=== PATIENT | female | born 1950 | race Caucasian/White ===

== ENCOUNTER 2019-02-26 20:09 | Emergency (ER) | payer OTHER ==
--- OUTSIDE RECORDS SUMMARY | 2019-02-26 20:12 | XMS REPORT ---
:1950 Author Organization eClinicalWorks Care Team Providers Name Role Phone Burrows, Na Provider Role Unavailable Allergies No Known Allergies Problems Problem Type Condition Code Onset Dates Condition Status Problem Degeneration of lumbar or M51.37 Active lumbosacral intervertebral disc Problem Cervicalgia M54.2 Active Problem Neuropathic pain M79.2 Active Problem Allergic rhinitis J30.9 Active Problem Familial hyperlipidemia, high LDL E78.4 Active Problem Dizziness R42 Active Problem Mild memory disturbance R41.3 Active Problem Other chronic pain G89.29 Active Problem Hyperlipidemia E78.5 Active Problem DJD (degenerative joint disease) M19.90 Active Problem Headache R51 Active Problem Benign essential HTN I10 Active Problem GERD (gastroesophageal reflux K21.9 Active disease) Problem Osteoarthritis of multiple joints, M15.9 Active unspecified osteoarthritis type Problem Lumbago with sciatica, unspecified M54.40 Active side Problem Varicose veins of both legs with I83.893 Active edema Problem Varicose veins of both lower I83.93 Active extremities Problem Lipoma D17.9 Active Problem Narcolepsy G47.419 Active Problem Other cervical disc degeneration, M50.30 Active unspecified cervical region Problem Varicose veins I86.8 Active Problem Ventral hernia K43.9 Active Problem Diverticulosis of colon K57.30 Active Medications No Known Medications Results No Known Results Summary Purpose eClinicalWorks Submission
--- OUTSIDE RECORDS SUMMARY | 2019-02-26 20:12 | XMS REPORT ---
:1950 Author Organization eClinicalWorks Care Team Providers Name Role Phone Burrows, Na Provider Role Unavailable Allergies, Adverse Reactions, Alerts Substance Reaction Event Type PCN Info Not Available Drug Allergy Zocor Info Not Available Drug Allergy Ibuprofen Info Not Available Drug Allergy Inder Aspirin Info Not Available Drug Allergy Problems Problem Type Condition Code Onset Dates Condition Status Assessment Other chronic pain G89.29 Active Assessment Skin tags, anus or rectum K64.4 Active Assessment Mild memory disturbance R41.3 Active Assessment Varicose veins of both lower I83.93 Active extremities Assessment Lumbago with sciatica, unspecified M54.40 Active side Assessment Osteoarthritis of multiple joints, M15.9 Active unspecified osteoarthritis type Assessment Familial hyperlipidemia, high LDL E78.4 Active Problem Varicose veins I86.8 Active Assessment Benign essential HTN I10 Active Problem Diverticulosis of colon K57.30 Active Problem Degeneration of lumbar or M51.37 Active lumbosacral intervertebral disc Problem Cervicalgia M54.2 Active Problem Neuropathic pain M79.2 Active Problem Allergic rhinitis J30.9 Active Problem Dizziness R42 Active Problem Familial hyperlipidemia, high LDL E78.4 Active Problem Mild memory disturbance R41.3 Active Problem Hyperlipidemia E78.5 Active Problem Other chronic pain G89.29 Active Problem DJD (degenerative joint disease) M19.90 [...] degeneration, M50.30 Active unspecified cervical region Problem Ventral hernia K43.9 Active Medications Medication Code Code Instructions Start End Status Dosage System Date Date Gabapentin NDC 04044574555 100 MG Orally Inactive 1 capsule Three times a day Norvasc NDC 75725222150 5 MG Active TAKE 1 TABLET BY MOUTH ONCE DAILY Ritalin SR ND 0 Active not defined Amlodipine [facility] 19501450716 5 MG Orally Active 1 tablet Besylate Once a day Meclizine HCl [facility] 70896268079 25 MG Orally Active 1 tablet Once a day as needed Singulair [facility] 71447164027 10 MG Active TAKE 1 TABLET BY MOUTH ONCE DAILY Flonase [facility] 38388882521 50 MCG/ACT Active 1 spray in Nasally Once a each day nostril Results Name Result Date Reference Range Unit Abnormality Flag CBC with Automated Diff ----Basophils % 1.3 [id number] 0-1.3 % ----Eosinophils % 2.4 79467568 0-4.4 % ----Absolute Lymphocytes (CBC) 1.6 [id number] 0.7-4.9 ----Absolute Neutrophil 2.9 [id number] 1.8-8.0 ----Red Cell Distribution 13.4 [id number] 12.1-15.2 % Width ----Absolute Eosinophils 0.1 45136775 0-0.5 ----Platelets 275 31415861 152-406 ----Absolute Monocytes 0.4 [id number] 0.1-1.3 ----MCHC 34.6 [id number] 32.0-36.0 g/dL ----MCH 32.2 [id number] 27.0-35.0 pg ----MCV 93.0 [id number] 80-100 fL ----Neutrophils % 56.9 08399994 41.7-73.7 % ----MPV 8.0 [id number] 7.6-11.3 fL ----Monocytes % 7.5 76745263 3.3-12.3 % ----Lymphocytes % 31.9 [id number] 15.3-44.8 % ----Absolute Basophils 0.1 70682498 0-0.5 ----White Blood Count 5.1 46334725 4.3-10.9 ----RBC Red Blood Cell Count 4.56 [id number] 3.86-4.86 M/ul ----Hemoglobin 14.7 73481095 12.0-15.0 g/dL ----Hematocrit 42.4 [id number] 36.0-45.0 % Uric Acid ----Uric Acid 5.4 [id number] 2.6-6.0 mg/dL Summary Purpose eClinicalWorks Submission
--- OUTSIDE RECORDS SUMMARY | 2019-02-26 20:12 | XMS REPORT ---
[...] Condition Code Onset Dates Condition Status Assessment Diaphragmatic hernia without K44.9 Active obstruction or gangrene Assessment Gastro-esophageal reflux disease K21.9 Active without esophagitis Assessment Varicose veins of both lower I83.93 Active extremities Assessment Bilateral hearing loss, unspecified H91.93 Active hearing loss type Assessment Lumbago with sciatica, unspecified M54.40 Active side Assessment Osteoarthritis of multiple joints, M15.9 Active unspecified osteoarthritis type Assessment Familial hyperlipidemia, high LDL E78.4 Active Assessment Benign essential HTN I10 Active Problem Mild memory disturbance R41.3 Active Problem Neuropathic pain M79.2 Active Problem Cervicalgia M54.2 Active Problem Familial hyperlipidemia, high LDL E78.4 Active Problem Headache R51 Active Problem GERD (gastroesophageal reflux K21.9 Active disease) Problem DJD (degenerative joint disease) M19.90 Active Problem Bilateral hearing loss, unspecified H91.93 Active hearing loss type Problem Degeneration of lumbar or M51.37 Active lumbosacral intervertebral disc Problem Varicose veins of both lower I83.93 Active extremities Problem Varicose veins of both legs with I83.893 Active edema Problem Gastro-esophageal reflux disease K21.9 Active without esophagitis Problem Other chronic pain G89.29 Active Problem Dizziness R42 Active Problem Benign essential HTN I10 Active Problem Hyperlipidemia E78.5 Active Problem Allergic rhinitis J30.9 Active Problem Other cervical disc degeneration, M50.30 Active unspecified cervical region Assessment Allergic rhinitis J30.9 Active Problem Ventral hernia K43.9 Active Problem Osteoarthritis of multiple joints, M15.9 Active unspecified osteoarthritis type Problem Lumbago with sciatica, unspecified M54.40 Active side Problem Varicose veins I86.8 Active Problem Diverticulosis of colon K57.30 Active Problem Lipoma D17.9 Active Problem 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 34321576898 25 MG Orally Active 1 tablet Once a day as needed Flonase [facility] 08413034875 50 MCG/ACT Active 1 spray Nasally Once a in each day nostril Ritalin SR ND 0 Active not defined Repatha [facility] 98626969923 140 MG/ML January Inactive 1 ml SureClick Subcutaneous 2018 once every [address] [facility] 52554324521 5 MG Active TAKE 1 TABLET BY MOUTH ONCE DAILY Amlodipine [facility] 98071102818 5 MG Orally Active 1 tablet Besylate Once a day Singulair [facility] 77935166730 10 MG Active TAKE 1 TABLET BY MOUTH ONCE DAILY Pantoprazole [facility] 91080251500 40 MG Orally Jan 07, Active 1 tablet Sodium Once a day 2018 Results No Known Results Summary Purpose eClinicalWorks Submission
--- OUTSIDE RECORDS SUMMARY | 2019-02-26 20:12 | XMS REPORT | Clinical Summary ---
:1950 Author Organization [facility] Address [address] [place] [address] Care Team Providers Name Role Phone Asha Burrows DO Primary Care Provider Allergies Active Allergy Reactions Severity Noted Date Comments Aspirin 06/25/2017 Codeine 06/25/2017 Ibuprofen 06/25/2017 Iodine 06/25/2017 Latex 06/25/2017 Terramycin 06/25/2017 Medications Medication Sig Dispensed Refills Start Date End Date Status meclizine (ANTIVERT) 25 0 04/10/2017 Active mg tablet methylphenidate ER 0 06/21/2017 Active (METADATE ER) 20 MG CR tablet methylphenidate (RITALIN) 0 06/21/2017 Active 10 MG tablet montelukast (SINGULAIR) 0 05/28/2017 Active 10 mg tablet amLODIPine (NORVASC) 5 mg 0 05/27/2017 Active tablet pantoprazole (PROTONIX) Take 40 mg by 0 Active 40 MG EC tablet mouth daily. naproxen sodium (ALEVE) Take by mouth. 0 Active 220 mg capsule gabapentin (NEURONTIN) Take 300 mg by 0 Active 300 mg capsule mouth daily. DM/P-EPHED/ACETAMINOPH/DO Take by mouth. 0 Active XYLAM (NYQUIL D ORAL) Active Problems No known active problems Family History Medical History Relation Name Comments Cancer Father Saul Higgins Lung, mastcized in hip Osteoporosis Maternal Grandmother Paula Iniguezmermann Rheumatologic disease Maternal Grandmother Paula Damon Osteoporosis Mother Lexi damon Rheumatologic disease Mother Lexi damon Rheumatoide arthritis Cancer Paternal Aunt Maribethsatishgolden Roche Breast canser Cancer Sister Shy Mace Breast left Relation Name Status Comments Father Saul Higgins Maternal Grandmother Paula Iniguezmermann Mother Lexi damon Paternal Aunt Spring Roche Sister Shy Mace Social History Tobacco Use Types Packs/Day Years Used Date Former Smoker Cigarettes 2 10 07/17/1966 - 08/16/1976 Smokeless Tobacco: Never Used Comments: Been 40 years since I have smoked Alcohol Use Drinks/Week oz/Week Comments Yes 4 Standard drinks or equivalent Drink nightly for sleep Sex Assigned at Date Recorded Not on file Job Start Date Occupation Industry Not on file Not on file Not on file Travel History Travel Start Travel End No recent travel history available. Last Filed Vital Signs Not on file Plan of Treatment Health Maintenance Due Date Last Done Comments BREAST CANCER SCREENING 1998 COLON CANCER SCREENING 1998 SHINGLES VACCINES (#1) 1998 65+ PNEUMOCOCCAL VACCINE (1 of 2 - PCV13) 2013 PNEUMOCOCCAL POLYSACCHARIDE VACCINE AGE 65 AND OVER 2013 INFLUENZA VACCINE 06/11/2019 Results Not on fileafter 02/25/2018 Insurance Payer Benefit Plan / Group Subscriber ID Type Phone [facility] x[facility] HMO (Home) [place] [address] Advance Directives Patient has advance care planning documents on file. For more information, please contact:Jose [address] [place] [address]
--- OUTSIDE RECORDS SUMMARY | 2019-02-26 20:12 | XMS REPORT ---
[...] Start End Status Dosage System Date Date Ritalin SR ND 0 Active not defined Flonase [facility] 95870660729 50 MCG/ACT Active 1 spray in Nasally Once a each day nostril Singulair [facility] 62619447409 10 MG Active TAKE 1 TABLET BY MOUTH ONCE DAILY Amlodipine [facility] 30404726615 5 MG Orally Active 1 tablet Besylate Once a day Norvasc [facility] 09991005991 5 MG Active TAKE 1 TABLET BY MOUTH ONCE DAILY Meclizine HCl [facility] 64211080042 25 MG Orally Active 1 tablet Once a day as needed Repatha [facility] 66151610938 140 MG/ML Oct 08, Active 1 ml SureClick Subcutaneous 2017 once every 2 weeks Gabapentin [facility] 65248717396 100 MG Orally Inactive 1 capsule Three times a day Results No Known Results Summary Purpose eClinicalWorks Submission
[2019-02-26 21:25] LABS: Absolute Lymphocytes (CBC) 1.2 K/uL (0.7-4.9); Absolute Monocytes 0.5 K/uL (0.1-1.3); Absolute Neutrophil 3.6 K/uL (1.8-8.0); Basophils % 1.1 % (0-1.3); Eosinophils % 0.8 % (0-4.4); Hematocrit 42.2 % (36.0-45.0); Lymphocytes % 22.8 % (15.3-44.8); MPV 7.5 fL (7.6-11.3); Monocytes % 8.5 % (3.3-12.3); RBC Red Blood Cell Count 4.51 M/uL (3.86-4.86)
[2019-02-26 21:28] LABS: Protime INR 0.89
[2019-02-26 21:54] LABS: ALT/SGPT 24 U/L (12-78); AST/SGOT 13 U/L (15-37); Albumin 4.1 g/dL (3.4-5.0); Alkaline Phosphatase 74 U/L (45-117); BUN Blood Urea Nitrogen 11 mg/dL (7-18); Bicarbonate 27 mmol/L (21-32); Bilirubin Total 0.5 mg/dL (0.2-1.0); Glucose Level 86 mg/dL (74-106); Magnesium 2.3 mg/dL (1.8-2.4); NT PRO-BNP 101 pg/mL (<125); Potassium 3.7 mmol/L (3.5-5.1); Protein, Total 7.5 g/dL (6.4-8.2); Sodium Level 141 mmol/L (136-145); Troponin (Emerg Dept Use Only) < 0.02 ng/mL (0.0-0.045)
--- NOTE | 2019-02-26 22:22 | ER ---
Nurse's Notes [facility] Name: Monie Dailey Age: 68 yrs Sex: Female : 1950 Arrival Date: 02/26/2019 Time: 20:11 Bed 13 Private MD: Asha Burrows Diagnosis: Cellulitis and acute lymphangitis of other parts of limb Presentation: 02/26 20:28 Presenting complaint: Patient states: Right calf pain that began yesterday morning, lp1 patient states working on the yard for about 7 hours, iced leg with no relief; Continued pain today. Transition of care: patient was not received from another setting of care. Onset of symptoms was February 25, 2019. Risk Assessment: Do you want to hurt yourself or someone else? Patient reports no desire to harm self or others. Initial Sepsis Screen: Does the patient meet any 2 criteria? No. Patient's initial sepsis screen is negative. Does the patient have a suspected source of infection? No. Patient's initial sepsis screen is negative. Care prior to arrival: None. 20:28 Method Of Arrival: Ambulatory lp1 20:28 Acuity: MINGO 4 lp1 Triage Assessment: 20:17 General: Appears in no apparent distress. uncomfortable, Behavior is calm, cooperative, cc3 appropriate for age. Pain: Complains of pain in right leg. EENT: No signs and/or symptoms were reported regarding the EENT system. Neuro: Level of Consciousness is awake, alert, obeys commands, Oriented to person, place, time, situation, Appropriate for age. Cardiovascular: Patient's skin is warm and dry. Respiratory: Airway is patent Respiratory effort is even, unlabored, Respiratory pattern is regular, symmetrical. GI: Abdomen is round non-distended. : No signs and/or symptoms were reported regarding the genitourinary system. Derm: redness and swelling on the right lower leg. Musculoskeletal: Circulation, motion, and sensation intact. Range of motion: intact in all extremities, Swelling present in right lower leg. Historical: - Allergies: 20:33 Aspirin; lp1 20:33 PENICILLINS; lp1 20:33 Codeine; lp1 20:33 Latex, Natural Rubber; lp1 20:33 Ibuprofen; lp1 20:33 teramycin; lp1 - Home Meds: 20:33 Protonix 40 mg Oral TbEC 1 tab once daily [Active]; methylphenidate 60 mg Oral BP30 1 lp1 cap once daily [Active]; amlodipine 5 mg tab 1 tab once daily [Active]; Singulair 10 mg Oral tab 1 tab once daily [Active]; - PMHx: 20:33 Hypertension; narcolepsy; neuropathy; breast cancer; lp1 - PSHx: 20:33 Hysterectomy; hand surgery; liposuction; L lumpectomy; lp1 - Immunization history:: Adult Immunizations up to date. - Social history:: Smoking status: Patient/guardian denies using tobacco. - Ebola Screening: : No symptoms or risks identified at this time. Screenin:33 Abuse screen: Denies threats or abuse. Denies injuries from another. Nutritional lp1 screening: No deficits noted. Tuberculosis screening: No symptoms or risk factors identified. Fall Risk None identified. Assessment: 20:17 General: see triage assessment. cc3 21:21 Reassessment: Patient appears in no apparent distress at this time. Patient and/or cc3 family updated on plan of care and expected duration. Pain level reassessed. Patient is alert, oriented x 3, equal unlabored respirations, skin warm/dry/pink. 22:16 Reassessment: Patient appears in no apparent distress at this time. Patient and/or cc3 family updated on plan of care and expected duration. Pain level reassessed. Patient is alert, oriented x 3, equal unlabored respirations, skin warm/dry/pink. 22:45 Reassessment: Patient appears in no apparent distress at this time. Patient and/or cc3 family updated on plan of care and expected duration. Pain level reassessed. Patient is alert, oriented x 3, equal unlabored respirations, skin warm/dry/pink. Dr. Cali discharged home the patient with prescription given. IV cannula removed and patient left ER vitally stable and ambulatory with her family. Patient states feeling better. Vital Signs: 20:33 BP 147 / 78; Pulse 82; Resp 18; Temp 98.2(O); Pulse Ox 95% on R/A; Weight 84.82 kg; lp1 Height 5 ft. 5 in. (165.10 cm); Pain 5/10; 21:15 BP 140 / 71; Pulse 77; Resp 19 S; Pulse Ox 96% on R/A; cc3 22:17 BP 147 / 80; Pulse 74; Resp 18 S; Pulse Ox 99% on R/A; cc3 20:33 Body Mass Index 31.12 (84.82 kg, 165.10 cm) lp1 ED Course: 20:11 Patient arrived in ED. am2 20:12 Asha Burrows MD is Private Physician. am2 20:17 Waleska Corbett is Primary Nurse. cc3 20:17 Patient has correct armband on for positive identification. Placed in gown. Bed in low cc3 position. Call light in reach. Side rails up X 1. lathe scalper operator on. Pulse ox on. NIBP on. 20:27 Erik Cali MD is Attending Physician. ps1 20:30 Triage completed. lp1 20:33 Arm band placed on left wrist. lp1 21:00 Inserted saline lock: 20 gauge in right antecubital area, using aseptic technique. cc3 Blood collected. 22:19 Asha Burrows MD is Referral Physician. ps1 22:45 No provider procedures requiring assistance completed. IV discontinued, intact, cc3 bleeding controlled, No redness/swelling at site. Pressure dressing applied. Administered Medications: No medications were administered Outcome: 22:21 Discharge ordered by . ps1 22:45 Discharged to home ambulatory, with family. cc3 22:45 Condition: stable 22:45 Discharge instructions given to patient, family, Instructed on discharge instructions, follow up and referral plans. medication usage, Demonstrated understanding of instructions, follow-up care, medications, Prescriptions given X 2. 22:58 Patient left the ED. cc3 Signatures: Stacy Anna RN RN 1 Heidi Burris am2 Erik Cali MD MD ps1 Waleska Corbett cc3
--- NOTE | 2019-02-26 22:22 | EDPHYS ---
Physician Documentation [facility] Name: Monie Dailey Age: 68 yrs Sex: Female : 1950 Arrival Date: 02/26/2019 Time: 20:11 Bed 13 Private MD: Asha Burrows ED Physician Erik Cali HPI: 02/26 22:16 This 68 yrs old Female presents to ER via Ambulatory with complaints of Leg ps1 Pain. 22:16 patient has had intermittent cramps in leg for a couple of weeks and then started to ps1 have left calf redness and pain that started after working in the yard. Pain is rated as mild to moderate. Hx of varicose veins. No hx of DVT. No fever. Warm to touch. No risks for DVT. Uses natural medicine 2/2 multiple allergies.. Historical: - Allergies: 20:33 Aspirin; lp1 20:33 PENICILLINS; lp1 20:33 Codeine; lp1 20:33 Latex, Natural Rubber; lp1 20:33 Ibuprofen; lp1 20:33 teramycin; lp1 - Home Meds: 20:33 Protonix 40 mg Oral TbEC 1 tab once daily [Active]; methylphenidate 60 mg Oral BP30 1 lp1 cap once daily [Active]; amlodipine 5 mg tab 1 tab once daily [Active]; Singulair 10 mg Oral tab 1 tab once daily [Active]; - PMHx: 20:33 Hypertension; narcolepsy; neuropathy; breast cancer; lp1 - PSHx: 20:33 Hysterectomy; hand surgery; liposuction; L lumpectomy; lp1 - Immunization history:: Adult Immunizations up to date. - Social history:: Smoking status: Patient/guardian denies using tobacco. - Ebola Screening: : No symptoms or risks identified at this time. ROS: 22:16 Constitutional: Negative for fever, chills, and weight loss, Eyes: Negative for injury, ps1 pain, redness, and discharge, Cardiovascular: Negative for chest pain, palpitations, and edema, Respiratory: Negative for shortness of breath, cough, wheezing, and pleuritic chest pain, Abdomen/GI: Negative for abdominal pain, nausea, vomiting, diarrhea, and constipation, MS/Extremity: Negative for injury and deformity, Neuro: Negative for headache, weakness, numbness, tingling, and seizure, Psych: Negative for depression, anxiety, suicide ideation, homicidal ideation, and hallucinations. 22:16 Skin: Positive for erythema, of the left calf. Exam: 22:16 Constitutional: This is a well developed, well nourished patient who is awake, alert, ps1 and in no acute distress. Head/Face: Normocephalic, atraumatic. Eyes: Pupils equal round and reactive to light, extra-ocular motions intact. Lids and lashes normal. Conjunctiva and sclera are non-icteric and not injected. Chest/axilla: Normal chest wall appearance and motion. Nontender with no deformity. No lesions are appreciated. Cardiovascular: Regular rate and rhythm. No gallops, murmurs, or rubs. Normal PMI, no JVD. No pulse deficits. Respiratory: Lungs have equal breath sounds bilaterally, clear to auscultation and percussion. No rales, rhonchi or wheezes noted. No increased work of breathing, no retractions or nasal flaring. Abdomen/GI: Soft, non-tender, with normal bowel sounds. No distension or tympany. No guarding or rebound. No evidence of tenderness throughout. MS/ Extremity: Pulses equal, no cyanosis. Neurovascular intact. Full, normal range of motion. 22:16 Skin: cellulitis, that is mild, confluent, on the left calf. Vital Signs: 20:33 BP 147 / 78; Pulse 82; Resp 18; Temp 98.2(O); Pulse Ox 95% on R/A; Weight 84.82 kg; lp1 Height 5 ft. 5 in. (165.10 cm); Pain 5/10; 21:15 BP 140 / 71; Pulse 77; Resp 19 S; Pulse Ox 96% on R/A; cc3 22:17 BP 147 / 80; Pulse 74; Resp 18 S; Pulse Ox 99% on R/A; cc3 20:33 Body Mass Index 31.12 (84.82 kg, 165.10 cm) lp1 MDM: 20:42 Patient medically screened. ps1 22:23 Data reviewed: vital signs, nurses notes, lab test result(s), and as a result, I will ps1 discharge patient. ED course: appearance more cellulitic than DVT. D-dimer negative. Could be superficial thrombophlebitis. Home with keflex and bactrim. Stable. . 04/18 20:37 Order name: CBC with Diff; Complete Time: 21:41 ps1 02/26 20:37 Order name: Magnesium; Complete Time: 22:16 ps1 02/26 20:37 Order name: NT PRO-BNP; Complete Time: 22:16 ps1 02/26 20:37 Order name: PT-INR; Complete Time: 21:41 ps1 02/26 20:37 Order name: Troponin (emerg Dept Use Only); Complete Time: 22:16 ps1 02/26 20:37 Order name: CMP; Complete Time: 22:16 ps1 02/26 20:37 Order name: EKG; Complete Time: 20:38 ps1 02/26 20:37 Order name: Cardiac monitoring; Complete Time: 20:55 ps1 02/26 20:37 Order name: EKG - Nurse/Tech; Complete Time: 20:55 ps1 02/26 20:37 Order name: IV Saline Lock; Complete Time: 21:05 ps1 02/26 20:37 Order name: Labs collected and sent; Complete Time: 21: [facility] 02/26 20:37 Order name: O2 Per Protocol; Complete Time: 20:40 ps1 02/26 20:37 Order name: O2 Sat Monitoring; Complete Time: 20:40 ps1 02/26 20:37 Order name: DD; Complete Time: 21:41 ps1 Administered Medications: No medications were administered Disposition: 02/26/19 22:21 Discharged to Home. Impression: Cellulitis and acute lymphangitis of other parts of limb. - Condition is Stable. - Discharge Instructions: Cellulitis, Adult. - Prescriptions for Keflex 500 mg Oral Capsule - take 1 capsule by ORAL route every 8 hours for 10 days; 30 capsule. Bactrim DS 800- 160 mg Oral Tablet - take 1 tablet by ORAL route every 12 hours for 10 days; 20 tablet. - Medication Reconciliation Form, Thank You Letter, Antibiotic Education, Prescription Opioid Use form. - Follow up: Asha Burrows MD; When: As needed; Reason: Fever > 102 F, Worsening of condition, Further diagnostic work-up, Recheck today's complaints. - Problem is new. - Symptoms are unchanged. Signatures: Dispatcher [employer] EDMS Stacy Anna RN RN lp1 Erik Cali MD MD ps1 Waleska Corbett cc3 Corrections: (The following items were deleted from the chart) 22:58 22:21 02/26/2019 22:21 Discharged to Home. Impression: Cellulitis and acute cc3 lymphangitis of other parts of limb. Condition is Stable. Forms are Medication Reconciliation Form, Thank You Letter, Antibiotic Education, Prescription Opioid Use. Follow up: Asha Burrows; When: As needed; Reason: Fever > 102 F, Worsening of condition, Further diagnostic work-up, Recheck today's complaints. Problem is new. Symptoms are unchanged. ps1
[2019-02-26 23:31] VITALS: TEMP 98.2
[2019-02-26 23:33] VITALS: BP 147/80; O2SAT 99
--- NOTE | 2019-02-27 06:12 | EKG ---
Test Date: 2019-02-26 Test Time: 20:50:53 Safety Companion: SRAVANTHI MEASUREMENT RESULTS: Intervals: Rate: 75 WY: 158 QRSD: 94 QT: 402 QTc: 448 [place]: P: 34 WY: 158 QRS: -18 T: 65 INTERPRETIVE STATEMENTS: Normal sinus rhythm Normal ECG Compared to ECG 03/29/2017 22:35:58 no significant change from previous ECG Electronically Signed On 02-27-19 06:11:40 CDT by Denny Borrego
== END 2019-02-26 22:58 | disposition home or self-care (01) ==
LOC: ER 20:09
DX: L03.116 Cellulitis of left lower limb (principal); L03.126 Acute lymphangitis of left lower limb; I10 Essential (primary) hypertension; Z88.0 Allergy status to penicillin; Z85.3 Personal history of malignant neoplasm of breast; Z88.3 Allergy status to other anti-infective agents; Z88.5 Allergy status to narcotic agent; Z88.6 Allergy status to analgesic agent; Z91.040 Latex allergy status; Z91.048 Other nonmedicinal substance allergy status
CPT/HCPCS: 36415; 80053; 83735; 83880; 84484; 85025; 85379; 85610; 93005; 99284

== ENCOUNTER 2020-06-19 19:18 | Emergency (ER) | payer OTHER ==
--- OUTSIDE RECORDS SUMMARY | 2020-06-19 19:21 | XMS REPORT | Clinical Summary ---
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 Osteoporosis Maternal Grandmother Paula Abner Rheumatologic disease Maternal Grandmother Paula Damon Osteoporosis Mother Lexi damon Rheumatologic disease Mother Lexi damon Rheumatoi de arthritis Cancer Paternal Aunt Maribethsatishgolden Roche Breast canser Cancer Sister Shy Mace Breast left Relation Name Status Comments Father Salu Higgins Maternal Grandmother Paula Damon Mother Lexi damon Paternal Aunt Spring Roche Sister Shy Mace Social History Tobacco Use Types Packs/Day Years Used Date Former Smoker Cigarettes 2 10 07/17/1966 - 1 Smokeless Tobacco: Never Used Comments: Been 40 years since I have smo ked Alcohol Use Drinks/Week oz/Week Comments Yes 4 [...] Last Done Comments BREAST CANCER SCREENING 1998 COLONOSCOPY SCREENING 1998 SHINGLES VACCINES (#1) 1998 65+ PNEUMOCOCCAL VACCINE (1 of 2 - PCV13) 2013 INFLUENZA VACCINE 06/11/2020 Results Not on fileafter 06/19/2019 Advance Directives For more information, please contact: [phone] Type Date Recorded 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
--- OUTSIDE RECORDS SUMMARY | 2020-06-19 19:22 | XMS REPORT | Continuity of Care Document ---
:1950 Author Organization [facility] t Address [address] [place] [address] Care Team Providers Name Role Phone Tali Burrows DO Primary Care Physician Problems Condition Condition Condition Status Onset Resolution Last Treating Co mments Source Name Details Category Date Date Treatment Clinician Date Narcolepsy Narcolepsy Problem Active 2020-0 [facility] 3-09 Family 00:00: Practic 00 e Essential Essential Problem Active 2019-0 Sandi hugo hypertensi Hypertensi 3- Fa venkatesh on on 00:00: Practic 00 e Seasonal Seasonal Problem Active 2020-0 [place] ge allergic Allergic 3- Family rhinitis Rhinitis 00:00: Practi c 00 e Gastroesop Gastroesop Problem Active 2020-0 [facility] [place] hageal hageal 3- Family reflux Reflux 00:00: Practic disease Disease 00 e Degenerati Degenerati Problem Active [facility] - lumbar or lumbar or Wesley yuriy lumbosacra lumbosacra l l l Outpati interverte interverte en t bral disc bral disc Clin ics Cervicalgi Cervicalgi Problem Active [facility] Neuropathi Neuropathi Problem Active [facility] pain c pain [facility] Allergic Allergic Problem [facility] 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 [place] kes - emia, high emia, high Me moria LDL LDL l Outpati ent Clinics Dizziness Dizziness Problem Active [facility] Mild Mild Problem Active [facility] memory memory [facility] - disturbanc disturbanc Me moria e e l Outpati ent Clinics Other Other Problem Active [facility] chronic chronic [facility] pain pain [facility] Hyperlipid Hyperlipid Problem Active [facility] emia emia [facility] DJD DJD Problem Active [facility] (degenerat (degenerat [place] kes - skylar joint skylar joint Welsey yuriy disease) disease) l Outpati ent Clinics Headache Headache Problem [facility] Benign Benign Problem Active [facility] essential essential [facility] s - HTN HTN Memoria l Outpati ent Clinics Gastro-eso Gastro-eso Diagnosis Active [facility] phageal phageal [facility] - reflux reflux Memoria disease disease l without without Outpati esophagiti esophagiti en t s s Clinics Osteoarthr Osteoarthr Problem Active [facility] itis of itis of [facility] - multiple multiple Memori a joints, joints, l unspecifie unspecifie Ou tpati d d ent osteoarthr osteoarthr Cl inics itis type itis type Lumbago Lumbago Problem Active [facility] with with [facility] - sciatica, sciatica, Wesley yuriy unspecifie unspecifie l d side d side Outpati ent Clinics Varicose Varicose Problem Active [facility] veins of veins of [facility] - both legs both legs Wesley yuriy with edema with edema l Outpati ent Clinics Varicose Varicose Diagnosis Active [facility] veins of veins of [facility] - both lower both lower Me moria extremitie extremitie l s s [facility] Lipoma Lipoma Problem Active [facility] Narcolepsy Narcolepsy Problem Active [facility] Other Other Problem Active [facility] cervical cervical [facility] - disc disc Memoria degenerati degenerati l on, on, Outpati unspecifie unspecifie en t d cervical d cervical Cl inics region region Varicose Varicose Problem Active [facility] Ventral Ventral Problem Active [facility] hernia hernia [facility] Diverticul Diverticul Problem Active [facility] osis of osis of [facility] - colon colon Memoria l [facility] Diaphragma Diaphragma Diagnosis Active [facility] tic hernia tic hernia [place] kes - without without Memoria obstructio obstructio l n or n or Outpati gangrene gangrene ent Clinics Bilateral Bilateral Problem Active [facility] hearing hearing [facility] - loss, loss, Memoria unspecifie unspecifie l d hearing d hearing Outp ati loss type loss type ent Clinics Thinning Thinning Problem Active [facility] hair hair [facility] Other Other Problem Active [facility] fatigue fatigue [facility] Clinics Narcolepsy Narcolepsy Diagnosis Active [facility] and [facility] - cataplexy cataplexy Wesley yuriy l [facility] ent Clinics Attention Attention Problem Active [facility] and [facility] - concentrat concentrat Me moria ion ion l deficit deficit [facility] Statin Statin Diagnosis Active [facility] intoleranc intoleranc [place] kes - e e Memoria l [facility] ent Clinics Allergies, Adverse Reactions, Alerts Allergy Allergy Status Severity Reaction(s) Onset Inactive Treating Comm ents Source Name Type Date Date Clinician Aspirin Propensi Active [place] ty to 06-25 Method[facility] adverse 00:00: st reaction 00 s to drug Codeine Propensi Active [place] ty to 06-25 [facility] adverse 00:00: st reaction 00 s to drug Ibuprofe Propensi Active [place] ty to 06-25 [facility] adverse 00:00: st reaction 00 s to drug Iodine Propensi Active [place] ty to 06-25 [facility] adverse 00:00: st reaction 00 s to drug Latex Propensi Active [place] ty to 06-25 [facility] adverse 00:00: st reaction 00 s to drug Terramyc Propensi Active [place] in ty to 06-25 [facility] adverse 00:00: st reaction 00 s to drug Aspirin Allergy Active [place] to Family substanc Practic e e Codeine Allergy Active [place] to Family substanc Practic e e Gabapent Allergy Active [place] in to Family substanc Practic e e PENICILL Allergy Active [place] INS to Family substanc Practic e e PCN Adverse Active Info Not [facility] Reaction Available [facility] Zocor Adverse Active Info Not [facility] Reaction Available [facility] Ibuprofe Adverse Active Info Not [facility] t n Reaction Available [facility] Clinics Inder Adverse Active Info Not [facility] Aspirin Reaction Available Lu s - Memoria l Outpati ent Clinics Family History Family Member Diagnosis Comments Start Date Stop Date Source Natural father Cancer Jose M Rivera Maternal Osteoporosis [place] grandmother [place] Maternal Rheumatologic [place] grandmother disease [place] Natural mother Osteoporosis Jose M [place] Natural mother Rheumatologic [place] disease [place] Paternal aunt Cancer Jose M Rivera Natural sister Cancer Jose M Rivera Social History Social Habit Start Date Stop Date Quantity Comments Source Sex Assigned At [facility] ethodist Cigarettes smoked 2017-11-01 2017-11-01 Jose M Branhamist current (pack per 00:00:00 00:00:00 day) - Reported Cigarette 2017-11-01 2017-11-01 Jose M Method ist pack-years 00:00:00 00:00:00 Alcohol intake 2017-11-01 2017-11-01 Current drinker [place] 00:00:00 00:00:00 of alcohol (finding) Tobacco Comment 2017-04-09 2017-04-09 Been 40 years [place] 00:00:00 00:00:00 since I have smoked Alcohol Comment 2017-04-09 2017-04-09 Drink nightly [place] 00:00:00 00:00:00 for sleep History of tobacco 1966-07-17 1976-08-16 Current smoker [place] use 00:00:00 00:00:00 Smoking Status Start Date Stop Date Source Former smoker 2017-11-01 00:00:00 2017-11-01 00:00:00 Jose M Rivera Medications Ordered Filled Start Stop Current Ordering Indication Dosage Frequency Signature Comments Components Source Medication Medication Date Date Medication? Clinician (SIG) Name Name Metoprolol Metoprolol 2018-11 Yes Na Burrows [address] [facility] Tartrate Tartrate 1-19 with food [place] kes - 00:00: Memoria 00 [facility] Pantoprazol Pantoprazol Yes Na Burrows [address] [facility] e Sodium e Sodium 2-27 [facility] - 00:00: Memoria [facility] pantoprazol Yes 40mg QD Take 40 mg [place] e 8-15 by mouth [facility] (PROTONIX) 11:05: daily. st 40 MG EC 14 tablet naproxen Yes Take by [place] sodium 8-15 mouth. [facility] (ALEVE) 220 11:05: st mg capsule 14 gabapentin Yes 300mg QD Take 300 [place] (NEURONTIN) 8-15 mg by [facility]i 300 mg 11:05: mouth st capsule 14 daily. DM/P-EPHED/ Yes Take by Rebeca escoto ACETAMINOPH 8-15 mouth. Method i /DOXYLAM 11:05: st (NYQUIL D 14 ORAL) methylpheni Yes [place] date ER 811 [facility] (METADATE 00:00: st ER) 20 MG 00 CR tablet methylpheni Yes [place] date 06-21 [facility] (RITALIN) 00:00: st 10 MG 00 tablet montelukast [facility] ([facility] 05-28 [facility] 10 mg 00:00: st tablet 00 amLODIPine Yes [place] (NORVASC) 5 7-17 [facility] mg tablet 00:00: st 00 meclizine Yes [place] (ANTIVERT) 5-31 [facility] 25 mg 00:00: st tablet 00 amlodipine amlodipine No amlodipine [facility] 5 mg tablet 5 mg tablet 5 mg F amily tablet Practic e cephalexin cephalexin No cephalexin [facility] 500 mg 500 mg 500 mg Family capsule capsule capsule Practi c e methylpheni methylpheni No methylphen [place] date 10 mg date 10 mg idate 10 Family tablet tablet mg tablet Practi c e methylpheni methylpheni No methylphen [place] date ER 20 date ER 20 idate ER Family mg mg 20 mg Practic tablet,exte tablet,exte tablet,ext e nded nded ended release release release metoprolol metoprolol No metoprolol [facility] tartrate 50 tartrate 50 tartrate Family mg tablet mg tablet 50 mg Prac tic twice a day twice a day tablet e twice a day modafinil modafinil No modafinil [facility] 200 mg 200 mg 200 mg Family tablet tablet tablet Practic e montelukast montelukast No montelukas [facility] 10 mg 10 mg t 10 mg Family tablet tablet tablet Practic e pantoprazol pantoprazol No pantoprazo [place] e 40 mg e 40 mg le 40 mg Famil y tablet,lorraine tablet,lorraine tablet,del Practic yed release yed release ayed e release polymyxin B polymyxin B No polymyxin [place] sulfate sulfate B sulfate Fami ly 10,000 10,000 10,000 Practic unit-trimet unit-trimet unit-trime e hoprim 1 hoprim 1 thoprim 1 mg/mL eye mg/mL eye mg/mL eye drops drops drops sulfamethox sulfamethox No sulfametho [place] azole 800 azole 800 xazole 800 Family mg-trimetho mg-trimetho mg-trimeth Practic prim 160 mg prim 160 mg oprim 160 e tablet tablet mg tablet Norvasc Norvasc Yes Na Burrows TAKE [address] [facility] TABLET BY [facility] - MOUTH ONCE Memoria DAILY [facility] Ritalin SR Ritalin SR Yes Na Burrows not [facility] defined [facility] - [facility] Amlodipine Amlodipine Yes Na Burrows [address] [facility] Besylate Besylate [facility] Meclizine Meclizine Yes Na Burrows [address] [facility] HCl HCl as needed [facility] Singulair Singulair Yes Na Burrows TAKE [address] [facility] TABLET BY [facility] - MOUTH ONCE Memoria DAILY [facility] Flonase Flonase Yes Na Burrows [address] [facility] each kes - nostril Memoria [facility] Metoprolol Metoprolol Yes Na Burrows [address] Tartrate Tartrate with food [facility] Pantoprazol Pantoprazol Yes Na Burrows TAKE [address] [facility] e Sodium e Sodium TABLET BY [place] kes - MOUTH ONCE Memoria DAILY [facility] Immunizations Ordered Filled Immunization Date Status Comments Sour e Immunization Name Name Ross Hawkins 2019-09-[address] [facility] 00[facility]00 [facility] Procedures This patient has no known procedures. Plan of Care Planned Activity Planned Date Details Comments Source Future Scheduled Test 2020-06-11 INFLUENZA VACCINE [facility] [place] 00:00:00 [code = INFLUENZA VACCINE] Future Scheduled Test 2013 65+ [facility]OC[facility]CCAL [facility] 00:00:00 VACCINE (1 of 2 - PCV13) [code = 65+ PNEUMOCOCCAL VACCINE (1 of 2 - PCV13)] Future Scheduled Test 1998 BREAST CANCER [facility] 00:00:00 SCREENING [code = BREAST CANCER SCREENING] Future Scheduled Test 1998 COLONOSCOPY SCREENING [place] 00:00:00 [code = COLONOSCOPY SCREENING] Future Scheduled Test 1998 SHINGLES VACCINES H david Rivera 00:00:00 (#1) [code = SHINGLES VACCINES (#1)] Future Appointment 2020-06-28 Kathryn Juancarlos [id number] [facility] Family 00:00:00 Karen Vega; [address], [facility] [place] [address] Encounters Start End Encounter Admission Attending Care Care Encounter Source Date/Time Date/Time Type Type Clinicians Facility Department ID 2020-03-23 2020-03-23 [facility] [id number] [facility] [address] 11:00:00 11:00:00 t [facility] Medicine Outpati ent Clinics 2020-03-23 2020-03-23 [facility] - [id number] V illage 00:00:00 00:00:00 [employer]tt 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 2020-02-22 2020-02-22 [facility] [id number] 14:41:00 14:41:00 t [facility] Medicine Outpati ent Clinics 2020-02-18 2020-02-18 [facility] [id number] 15:18:00 15:18:00 t [facility] l Medicine Outpati ent Clinics 2020-02-01 2020-02-01 [facility] [id number] [address] 13:35:00 13:35:00 [facility] Medicine l Medicine Outpati ent Clinics 2019-12-29 2019-12-29 [facility] [id number] [address] 08:03:00 08:03:00 t [facility] Medicine l Medicine Outpati ent Clinics 2019-09-29 2019-09-29 [facility] [id number] [address] 10:20:00 10:20:00 [facility] l Medicine Outpati ent Clinics 2019-09-28 2019-09-28 [facility] [id number] 16:57:00 16:57:00 [place] [employer] [facility] Medicine Outpati ent Clinics 2019-09-15 2019-09-15 [facility] [id number] 14[facility]45:00 14:45:00 t [place] [employer] [facility] Medicine Outpati ent Clinics 2019-07-07 2019-07-07 [facility] [id number] 13:40:00 13:40:00 t [place] [employer] [facility] Medicine Outpati ent Clinics 2019-04-07 2019-04-07 [facility] [id number] [address] 15:20:00 15:20:00 t [facility] Medicine Outpati ent Clinics 2019-01-07 2019-01-07 [facility] [id number] 15:30:00 15:30:00 t [facility] Medicine Outpati ent Clinics 2018-10-08 2018-10-08 [facility] [id number] 15:30:00 15:30:00 t [facility] Medicine Outpati ent Clinics 2018-06-27 2018-06-27 [facility] [id number] [address] 08:14:00 08:14:00 t [facility] Medicine Outpati ent Clinics 2018-06-25 2018-06-25 [facility] [id number] 10:30:00 10:30:00 t [facility] Medicine Outpati ent Clinics Results This patient has no known results.
--- OUTSIDE RECORDS SUMMARY | 2020-06-19 19:22 | XMS REPORT ---
:1950 Author Organization [employer] Care Team Providers Name Role Phone Burrows, Na Provider Role Unavailable Allergies, Adverse Reactions, Alerts Substance Reaction Event Type PCN Info Not Available Drug Allergy Zocor Info Not Available Drug Allergy Ibuprofen Info Not Available Drug Allergy Inder Aspirin Info Not Available Drug Allergy Problems Problem Type Condition Code Onset Dates Condition Statu s Assessment Familial hyperlipidemia, high LDL E78.4 Active Assessment Osteoarthritis of multiple joints, M15.9 Active unspecified osteoarthritis type Assessment Benign essential HTN I10 Active Problem Other chronic pain G89.29 Active Problem Varicose veins of both legs with I83.893 Active edema Problem Varicose veins of both lower I83.93 Active extremities Problem Osteoarthritis of multiple joints, M15.9 Active unspecified osteoarthritis type Problem Mild memory disturbance R41.3 Acti ve Problem Familial hyperlipidemia, high LDL E78.4 Active Problem Narcolepsy G47.419 Active Problem Varicose veins I86.8 Active Problem Lumbago with sciatica, unspecified M54.40 Active side Problem Diverticulosis of colon K57.30 Acti ve Problem 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 lumbosacral intervertebral disc Problem Ventral hernia K43.9 Active Problem Other fatigue R53.83 Active Problem Thinning hair L65.9 Active Problem Cervicalgia M54.2 Active Problem Neuropathic pain M79.2 Active Problem Attention and concentration deficit R41.840 Active Problem Other cervical disc degeneration, M50.30 Active unspecified cervical region Problem Bilateral hearing loss, unspecified H91.93 Active hearing loss type Problem Gastro-esophageal reflux disease K21.9 Active without esophagitis Problem Diaphragmatic hernia without K44.9 Active obstruction or gangrene Problem 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 Assessment Allergic rhinitis J30.9 Active Problem GERD (gastroesophageal reflux K21.9 Active disease) Assessment Varicose veins of both lower I83.93 Active extremities Problem Benign essential HTN I10 Active Assessment Gastro-esophageal reflux disease K21.9 Active without esophagitis Problem Headache R51 Active Assessment Diaphragmatic hernia without K44.9 Active obstruction or gangrene Problem DJD (degenerative joint disease) M19.90 Active Assessment Statin intolerance Z78.9 Active Problem Hyperlipidemia E78.5 Active Assessment 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 Problem Lipoma D17.9 Active Problem Dizziness R42 Active Problem Allergic rhinitis J30.9 Active Medications Medication Code Code Instructions Start End Status Dosage System Date Date Flonase [facility] 82014105864 50 MCG/ACT Active 1 spray i n Nasally Once a each day nostril Meclizine HCl [facility] 64446111077 25 MG Orally Active 1 tablet Once a day as needed Singulair [facility] 83216457291 10 MG Active TAKE 1 TABLET BY MOUTH ONCE DAILY Amlodipine [facility] 93016399681 5 MG Orally Active 1 tab let Besylate Once a day Singulair [facility] 20199298787 10 MG Active TAKE 1 TABLET BY MOUTH ONCE DAILY Metoprolol [facility] 91385869869 25 MG Orally Active 1 ta blet Tartrate Twice a day with food Pantoprazole [facility] 13143414256 40 MG Orally Active 1 tablet Sodium Once a day Metoprolol [facility] 75729813448 50 MG Orally Active 1 ta blet Tartrate Twice a day with food Norvasc [facility] 87140859630 5 MG Active TAKE 1 TABLET BY MOUTH ONCE DAILY Ritalin SR ND 0 Active not defined Pantoprazole [facility] 06852421764 40 MG Active TAKE 1 Sodium TABLET BY MOUTH ONCE DAILY Results No Known Results Summary Purpose [employer]ClinicalWorks Submission
--- OUTSIDE RECORDS SUMMARY | 2020-06-19 19:23 | XMS REPORT | Encounter Summary ---
:1950 Author Care Team Providers Name Role Phone Dr. Cherri Harley Primary Care Provider Unavailable Reason for Visit Gastroesophageal reflux disease; Essenti al hypertension; Seasonal allergic rhinitis; Narcolepsy Instructions 1. Narcolepsy 2. Essential hypertension dash diet: care instructio ns 3. Gastroesophageal reflux disea se 4. Allergic rhinitis due to poll en Discussion Note: None recorded. Plan of Care Reminders Provider Appointments Return to on or around Belia Graves 06/28/2020 [facility] Lab None recorded. Referral None recorded. Procedures None recorded. Surgeries None recorded. Imaging None recorded. Medications Name Start Date amlodipine 5 mg tablet cephalexin 500 mg capsule methylphenidate 10 mg tablet methylphenidate ER 20 mg tablet,extended release metoprolol tartrate 50 mg tablet twice a day modafinil 200 mg tablet montelukast 10 mg tablet pantoprazole 40 mg tablet,delayed release polymyxin B sulfate 10,000 unit-trimethoprim 1 mg/mL e ye drops sulfamethoxazole 800 mg-trimethoprim 160 mg tablet Medications Administered None recorded. Vitals None recorded. Results Lab Results None recorded. Allergies Code Code System Name Reaction Severity Status Onset 1191 RxNorm Aspirin Active 2670 RxNorm Codeine Active 73254 RxNorm Gabapentin Active Penicillins Active Problems Name Status Onset Date Source Narcolepsy Active 01/18/2020 Essential Hypertension Active 01/18/2020 Seasonal Allergic Rhinitis Active 01/18/2020 Gastroesophageal Reflux Disease Active 01/18/2020 Procedures None recorded. Vaccine List None recorded. Social History None recorded. Past Encounters 03/23/2020 Narcolepsy; Essential Hypertension; Apollo roesophageal Reflux Disease; Allergic Rhinitis Due to Pollen Kathryn Bauer NP: [id number], [address], [place] [address], Ph. History of Present Illness Note: This is a follow up visit for a 69 y/o causation female who is being evaluated for narcolepsy, HTN, seasonal allergies, and GERD. She denies any ER or hospitalizations since the previous encounter. <div>
</div><div>Narcolepsy- methylphenidate increased to 20 mg as perPCP. </div><div>
</div><div>HTN- Managed with metoprolol tartrate,amlodipine </div><div>Seasonal allergic rhinitis- Managed with montelukast 10 mg daily.</div><div>GERD- managed with pantoprazole 40 mg daily. </div> Review of Systems Comprehensive General Adult ROS Reported By: Patient Constitutional: Constitutional: no fever, no significant weight gain, no significant weight loss Eyes: Eyes: no vision change, no i rritation ENMT: Ears: no difficulty hearing. Nose: no frequent nosebleeds, no sinus problems. Mouth/Throat : no sore throat, no bleeding gums, no teeth problems Cardiovascular: Cardiovascular: no chest magda n, no shortness of breath when walking, no shortness of jing ath when lying down, no palpitations, no known heart murmur, no lightheadedness Respiratory: Respiratory: no cough, no wh eezing, no shortness of breath, no coughing up blood, no sleep apnea Gastrointestinal: Gastrointestinal: no abdomin al pain, no nausea, no vomiting, no constipation, normal appe tite, no diarrhea, no dyspepsia Genitourinary: Genitourinary: no incontinen ce, no difficulty urinating, no hematuria Musculoskeletal: Musculoskeletal: no muscle a ches, no muscle weakness, no arthralgias/joint pain, no b ack pain, no swelling in the extremities Integumentary: Skin: no jaundice, no rashes , no laceration Neurologic: Neurologic: no loss of consc iousness, no weakness, no numbness, no seizures, no di zziness, no migraines, no headaches Psychiatric: Psych: no depression, no alc ohol abuse, no anxiety, no hallucinations, no suicidal thoughts, sleep disturbances Endocrine: Endocrine: no fatigue Hematologic/Lymphatic: Hematologic/Lymphatic no swo llen glands, no bruising, no excessive bleeding Allergic/Immunologic: Allergy/Immunologic: no runn y nose, no sinus pressure, no frequent sneezing Physical Exam Telemedicine/Virtual Visit Reported By: Patient
--- NOTE | 2020-06-19 22:54 | EDPHYS ---
Physician Documentation [facility] Name: Monie Dailey Age: 70 yrs Sex: Female : 1950 Arrival Date: 06/19/2020 Time: 19:20 Bed 19 Private MD: ED Physician Deniz Garza HPI: 06/19 19:57 This 70 yrs old Female presents to ER via Wheelchair with complaints of Leg jmm Swelling. 19:57 The patient presents with pain, swelling. Onset: The symptoms/episode began/occurred jmm today. Modifying factors: The symptoms are alleviated by nothing. the symptoms are aggravated by nothing. This is a 70 year old female with a history of htn, that presents to the ED with complaints of left lower extremity pain and swelling. Patient denies known injury but states she was performing yard work 2 days prior. Denies chest pain or shortness of breath. Denies fever. . Historical: - Allergies: 20:11 PENICILLINS; lp1 20:11 Codeine; lp1 20:11 Latex, Natural Rubber; lp1 20:11 Ibuprofen; lp1 20:11 teramycin; lp1 20:11 Aspirin; lp1 - Home Meds: 20:11 montelukast 10 mg oral tab 1 tab once daily [Active]; metoprolol tartrate 50 mg Oral lp1 tab 1 tab 2 times per day [Active]; Protonix 40 mg Oral TbEC 1 tab once daily [Active]; amlodipine 5 mg tab 1 tab once daily [Active]; Ritalin 10 mg Oral tab 1 tab 2 times per day [Active]; - PMHx: 20:11 breast cancer; Hypertension; narcolepsy; neuropathy; lp1 - PSHx: 20:11 Tubal ligation; L partial breast removal; Carpal Tunnel Repair; lp1 - Immunization history:: Adult Immunizations up to date. - Social history:: Smoking status: Patient denies any tobacco usage or history of. ROS: 19:57 Constitutional: Negative for fever, chills, and weight loss, Cardiovascular: Negative jmm for chest pain, palpitations, and edema, Respiratory: Negative for shortness of breath, cough, wheezing, and pleuritic chest pain. 19:57 MS/extremity: Positive for swelling. 19:57 All other systems are negative. Exam: 19:57 Constitutional: This is a well developed, well nourished patient who is awake, alert, jmm and in no acute distress. Head/Face: atraumatic. Eyes: EOMI, no conjunctival erythema appreciated ENT: Moist Mucus Membranes Neck: Trachea midline, Supple Chest/axilla: Normal chest wall appearance and motion. Cardiovascular: Regular rate and rhythm. No edema appreciated Respiratory: Normal respirations, no respiratory distress appreciated Abdomen/GI: Non distended, soft Back: Normal ROM Skin: General appearance color normal 19:57 Musculoskeletal/extremity: mild swelling noted to the left knee, FROM appreciated, no erythema or induration, compartments are soft, full dorsalis pulse, NVI. 19:57 Skin: Appearance: Color: normal in color. 19:57 Neuro: Orientation: is normal, Mentation: is normal, Memory: is normal. 19:57 Psych: Behavior/mood is pleasant, cooperative. Vital Signs: 20:08 BP 161 / 89; Pulse 80; Resp 18; Temp 98.4(O); Pulse Ox 96% on R/A; Weight 81.65 kg (R); lp1 Height 5 ft. 5 in. (165.10 cm); Pain 8/10; 20:27 BP 131 / 83; Pulse 91; Resp 15 S; Pulse Ox 99% on R/A; ca1 21:35 BP 152 / 71; Pulse 75; Resp 16 S; Pulse Ox 95% on R/A; ca1 23:06 BP 151 / 60; Pulse 80; Resp 18; Pulse Ox 96% on R/A; lp1 20:08 Body Mass Index 29.95 (81.65 kg, 165.10 cm) lp1 MDM: 19:57 Patient medically screened. crissy 22:46 Data reviewed: vital signs, nurses notes. Counseling: I had a detailed discussion with crissy the patient and/or guardian regarding: the historical points, exam findings, and any diagnostic results supporting the discharge/admit diagnosis, radiology results, the need for outpatient follow up, to return to the emergency department if symptoms worsen or persist or if there are any questions or concerns that arise at home. ED course: Patient is alert and non toxic in appearance in the ED. Patient is advised to follow up with pcp and otherwise given strict return precautions. Patient understood and agrees with the plan of care.. 06/19 20:34 Order name: US Extremity Venous Unilateral Ltd [facility] Administered Medications: No medications were administered Disposition: 06/20 11:09 Co-signature as Attending Physician, Denzi Garza MD I agree with the assessment and [facility] plan of care. Disposition: 06/19/20 22:54 Discharged to Home. Impression: Pain in left leg. - Condition is Stable. - Discharge Instructions: Musculoskeletal Pain. - Medication Reconciliation Form, Thank You Letter, Antibiotic Education, Prescription Opioid Use form. - Follow up: Private Physician; When: 2 - 3 days; Reason: Recheck today's complaints, Continuance of care, Re-evaluation by your physician. Signatures: Dispatcher [employer] EDDeniz Caal MD MD cha Mickail, Joel, PA PA Stacy Beck RN RN lp1 Corrections: (The following items were deleted from the chart) 06/19 23:16 22:54 06/19/2020 22:54 Discharged to Home. Impression: Pain in left leg. Condition is lp1 Stable. Forms are Medication Reconciliation Form, Thank You Letter, Antibiotic Education, Prescription Opioid Use. Follow up: Private Physician; When: 2 - 3 days; Reason: Recheck today's complaints, Continuance of care, Re-evaluation by your physician. crissy
--- NOTE | 2020-06-19 22:54 | ER ---
Nurse's Notes [facility] Name: Monie Dailey Age: 70 yrs Sex: Female : 1950 Arrival Date: 06/19/2020 Time: 19:20 Bed 19 Private MD: Diagnosis: Pain in left leg Presentation: 06/19 20:08 Chief complaint: Patient states: Pain to left knee that began last week, states lp1 noticing some swelling yesterday and pain behind left knee; Denies any fall or injury. Coronavirus screen: Client denies travel out of the [place] in the last 14 days. At this time, the client does not indicate any symptoms associated with coronavirus-19. Ebola Screen: No symptoms or risks identified at this time. Initial Sepsis Screen: Does the patient meet any 2 criteria? No. Patient's initial sepsis screen is negative. Does the patient have a suspected source of infection? No. Patient's initial sepsis screen is negative. Risk Assessment: Do you want to hurt yourself or someone else? Patient reports no desire to harm self or others. Onset of symptoms was June 13, 2020. 20:08 Method Of Arrival: Wheelchair lp1 20:08 Acuity: MINGO 4 lp1 Historical: - Allergies: 20:11 PENICILLINS; lp1 20:11 Codeine; lp1 20:11 Latex, Natural Rubber; lp1 20:11 Ibuprofen; lp1 20:11 teramycin; lp1 20:11 Aspirin; lp1 - Home Meds: 20:11 montelukast 10 mg oral tab 1 tab once daily [Active]; metoprolol tartrate 50 mg Oral lp1 tab 1 tab 2 times per day [Active]; Protonix 40 mg Oral TbEC 1 tab once daily [Active]; amlodipine 5 mg tab 1 tab once daily [Active]; Ritalin 10 mg Oral tab 1 tab 2 times per day [Active]; - PMHx: 20:11 breast cancer; Hypertension; narcolepsy; neuropathy; lp1 - PSHx: 20:11 Tubal ligation; L partial breast removal; Carpal Tunnel Repair; lp1 - Immunization history:: Adult Immunizations up to date. - Social history:: Smoking status: Patient denies any tobacco usage or history of. Screenin:11 Abuse screen: Denies threats or abuse. Denies injuries from another. Nutritional lp1 screening: No deficits noted. Tuberculosis screening: No symptoms or risk factors identified. 20:27 Fall Risk None identified. ca1 Assessment: 20:27 General: Appears in no apparent distress. comfortable, Behavior is calm, cooperative, ca1 appropriate for age. Pain: Complains of pain in medial aspect of left calf Pain currently is 9 out of 10 on a pain scale. Pain began a week ago Aggravated by repositioning, weight bearing. Neuro: Level of Consciousness is awake, alert, obeys commands, Oriented to person, place, time, situation. Derm: Skin is intact, is healthy with good turgor, Skin is pink, warm \T\ dry. Musculoskeletal: Circulation, motion, and sensation intact. Capillary refill < 3 seconds. 21:35 Reassessment: Patient appears in no apparent distress at this time. Patient and/or ca1 family updated on plan of care and expected duration. Pain level reassessed. Patient is alert, oriented x 3, equal unlabored respirations, skin warm/dry/pink. 23:06 Reassessment: Patient demonstrates understanding of discharge instructions from lp1 Provider. 23:07 Reassessment: Patient calling for ride home. lp1 Vital Signs: 20:08 BP 161 / 89; Pulse 80; Resp 18; Temp 98.4(O); Pulse Ox 96% on R/A; Weight 81.65 kg (R); lp1 Height 5 ft. 5 in. (165.10 cm); Pain 8/10; 20:27 BP 131 / 83; Pulse 91; Resp 15 S; Pulse Ox 99% on R/A; ca1 21:35 BP 152 / 71; Pulse 75; Resp 16 S; Pulse Ox 95% on R/A; ca1 23:06 BP 151 / 60; Pulse 80; Resp 18; Pulse Ox 96% on R/A; lp1 20:08 Body Mass Index 29.95 (81.65 kg, 165.10 cm) lp1 ED Course: 19:20 Patient arrived in ED. as 19:54 Bertrand Villegas PA is PHCP. [facility] 19:54 Deniz Garza MD is Attending Physician. m 20:09 Triage completed. lp1 20:09 Arm band placed on. lp1 20:20 Cassie Mccain, SUMANTH is Primary Nurse. ca1 20:27 Patient has correct armband on for positive identification. Placed in gown. Bed in low ca1 position. Call light in reach. Side rails up X2. Pulse ox on. NIBP on. Warm blanket given. 22:14 Report given to SUMANTH Guerra. ca1 23:07 No provider procedures requiring assistance completed. Patient did not have IV access lp1 during this emergency room visit. Administered Medications: No medications were administered Outcome: 22:54 Discharge ordered by . crissy 23:07 Condition: good lp1 23:07 Discharge instructions given to patient, Instructed on discharge instructions, follow up and referral plans. Demonstrated understanding of instructions, follow-up care. 23:16 Discharged to home via wheelchair, with family. lp1 23:16 Patient left the ED. lp1 Signatures: Bertrand Villegas PA PA jmm Martinez, Amelia as Pena, Laura, SUMANTH RN lp1 Cassie Mccain RN RN ca1 Corrections: (The following items were deleted from the chart) 20:43 20:15 BP 131 / 83; Pulse 91bpm; Resp 15bpm; Spontaneous; Pulse Ox 99% RA; ca1 ca1
[2020-06-19 23:22] VITALS: TEMP 98.4
[2020-06-19 23:26] VITALS: BP 151/60; O2SAT 96
--- NOTE | 2020-06-20 11:33 | RAD REPORT ---
EXAM DESCRIPTION: US - Extremity Venous Uni Ltd - 06/19/2020 10:46 pm CLINICAL HISTORY: PAIN Leg swelling and edema. COMPARISON: No comparisons FINDINGS: Left lower extremity venous system was interrogated with Doppler technique. Normal flow, c ompressibility and augmentation was noted. There is no DVT present. IMPRESSION: No evidence of left lower extremity deep venous thrombosis.
== END 2020-06-19 23:16 | disposition home or self-care (01) ==
LOC: ER 19:18
DX: M79.605 Pain in left leg (principal); I10 Essential (primary) hypertension; Z85.3 Personal history of malignant neoplasm of breast; Z88.0 Allergy status to penicillin; Z88.1 Allergy status to other antibiotic agents; Z88.5 Allergy status to narcotic agent; Z88.6 Allergy status to analgesic agent; Z91.040 Latex allergy status
CPT/HCPCS: 93971; 99283

== ENCOUNTER 2020-09-10 22:40 | Emergency (ER) | payer OTHER ==
--- OUTSIDE RECORDS SUMMARY | 2020-09-10 22:43 | XMS REPORT | Clinical Summary ---
:1950 Author Organization [facility] Address [address] [place] [address] Care Team Providers Name Role Phone Asha [...] ORAL) Active Problems No known active problems Surgical History Surgery Date Site/Laterality Comments HAND SURGERY CARPAL TUNNEL RELEASE Medical History Medical History Date Comments Complication of anesthesia Causes urinat ion problems and locals don't work well Osteoarthritis 1998 CTS (carpal tunnel syndrome) 1983 Arthritis 1958 Hubbard's cyst 1998 Right knee Cancer (HCC) 1992 Removed 1/3 of my le ft breast but came bake ok. Hypertension Clotting disorder (HCC) 1956 Family History Medical History Relation Name Comments Cancer Father Saul Higgins Lung, mastcized in hip Osteoporosis Maternal Grandmother Paula Damon Rheumatologic disease Maternal Grandmother Paula Damon Osteoporosis Mother Lexi damon Rheumatologic disease Mother Lexi damon Rheumatoi de arthritis Cancer Paternal Aunt Spring Roche Breast canser Cancer Sister Shy Mace Breast left Relation Name Status Comments Father Saul Higgins Maternal Grandmother Paula Damon Mother Lexi [...] Assigned at Date Recorded Not on file Last Filed Vital Signs Not on file Plan of Treatment Health Maintenance Due Date Last Done Comments BREAST CANCER SCREENING 1998 COLONOSCOPY SCREENING 1998 SHINGLES VACCINES (#1) 1998 65+ PNEUMOCOCCAL VACCINE (1 of 1 - PPSV23) 2013 INFLUENZA VACCINE 06/11/2020 Results Not on fileafter 09/10/2019 Advance Directives For more information, please contact: [phone] Type Date Recorded Patient [employer] [employer] Explanati on Advance Directives, Living Will and Medical Power of Him Director
--- OUTSIDE RECORDS SUMMARY | 2020-09-10 22:43 | XMS REPORT | Continuity of Care Document ---
:1950 Author Organization [facility] t Address [address] [place] [address] Care Team Providers Name Role Phone Stormy ESTRELLA Tali Primary Care Physician Problems Condition Condition Condition Status Onset Resolution Last Treating Co mments Source Name Details Category Date Date Treatment Clinician Date Narcolepsy Narcolepsy Problem Active V illage 3-09 Family 00:00: Practic 00 e Essential Essential Problem Active Sandi hugo hypertensi Hypertensi 3 Fa venkatesh on on 00:00: Practic 00 e Seasonal Seasonal Problem Active K[place]aid ge allergic Allergic 3 Family rhinitis Rhinitis 00:00: Practi c 00 e Gastroesop Gastroesop Problem Active V illage hageal hageal 3 Family reflux Reflux 00:00: Practic disease Disease 00 e Allergies, Adverse Reactions, Alerts Allergy Allergy Status Severity Reaction(s) Onset Inactive Treating Comm ents Source Name Type Date Date Clinician Aspirin Propensi Active [place] ty to 06-25 Methodi adverse 00:00: st reaction 00 s to drug Codeine Propensi Active [place] ty to 06-25 Methodi adverse 00:00: st reaction 00 s to drug Ibuprofe Propensi Active [place] ty to 06-25 Methodi adverse 00:00: st reaction 00 s to drug Iodine Propensi Active [place] ty to 06-25 Methodi adverse 00:00: st reaction 00 s to drug Latex Propensi Active [place] ty to 06-25 Methodi adverse 00:00: st reaction 00 s to drug Terramyc Propensi Active [place] in ty to 8-15 Methodi adverse 00:00: st reaction 00 s to drug Aspirin Allergy Active [place] to Family substanc Practic e e Codeine Allergy Active [place] to Family substanc Practic e e Gabapent Allergy Active [place] in to Family substanc Practic e e PENICILL Allergy Active [place] INS to Family substanc Practic e e PCN Adverse Active Info Not [facility] Zocor Adverse Active Info Not [facility] Reaction [facility] Ibuprofe Adverse Active Info Not [facility] Reaction Available [facility] Inder Adverse Active Info Not [facility] Aspirin Reaction Available [facility] Family History Family Member Diagnosis Comments Start Date Stop Date Source Natural father Cancer Jose M Branhamist Maternal Osteoporosis [place] grandmother L[facility]-Day Maternal Rheumatologic [place] grandmother disease [place]-Day Natural mother Osteoporosis [place] Natural mother Rheumatologic [place] disease [facility] Paternal aunt Cancer [place] Natural sister Cancer Jose M Rivera Social History Social Habit Start Date Stop Date Quantity Comments Source Sex Assigned At [facility] ethodi Cigarettes smoked 2017-11-01 2017-11-01 Jose M Branhamist current (pack per 00:00:00 00:00:00 day) - Reported Cigarette 2017-11-01 2017-11-01 [place] Method ist pack-years 00:00:00 00:00:00 Tobacco use and 2017-11-01 2017-11-01 Never used [facility] ethodist exposure 00:00:00 00:00:00 Alcohol intake 2017-11-01 2017-11-01 Current drinker Gm on [facility] 00:00:00 00:00:00 of alcohol (finding) Tobacco Comment 2017-04-09 2017-04-09 Been 40 years Dhara bailey [facility] 00:00:00 00:00:00 since I have smoked Alcohol Comment 2017-04-09 2017-04-09 Drink nightly Dhara n [facility] 00:00:00 00:00:00 for sleep History of tobacco 1966-07-17 1976-08-16 Current smoker Ho goran [facility] use 00:00:00 00:00:00 Smoking Status Start Date Stop Date Source Former smoker 2017-11-01 00:00:00 2017-11-01 00:00:00 Jose M Rivera Medications Ordered Filled Start Stop Current Ordering Indication Dosage Frequency Signature Comments Components Source Medication Medication Date Date Medication? Clinician (SIG) Name Name Metoprolol Metoprolol Yes Na Burrows [address] [facility] Tartrate Tartrate 8-17 with food Yanique kes - 00:00: Memoria 00 [facility] Metoprolol Metoprolol 2018-11 Yes Na Burrows [address] [facility] Tartrate Tartrate 1-19 with food Yanique kes - 00:00: Memoria 00 [facility] pantoprazol Yes 40mg QD Take 40 mg [...] 14 daily. DM/P-EPHED/ Yes Take by Rebeca jevon ACETAMINOPH 8-15 mouth. Method i /DOXYLAM 11:05: st (NYQUIL D 14 ORAL) methylpheni Yes [place] date ER 8-11 Methodi (METADATE 00:00: st ER) 20 MG 00 CR tablet methylpheni Yes [place] date 8-11 Methodi (RITALIN) 00:00: st 10 MG 00 tablet montelukast Yes Dhara bailey (SINGULAIR) 7-18 Methodi 10 mg 00:00: st tablet 00 amLODIPine Yes Jose M (NORVASC) 5 7-17 Methodi mg tablet 00:00: st 00 meclizine Yes Jose M (ANTIVERT) 5-31 Methodi 25 mg 00:00: st tablet 00 amlodipine amlodipine No amlodipine Village 5 mg tablet 5 mg tablet 5 mg F amily tablet Practic e cephalexin cephalexin No cephalexin Village 500 mg 500 mg 500 mg Family [...] release release release metoprolol metoprolol No metoprolol [facility] tartrate 25 tartrate 25 tartrate Family mg tablet mg tablet 25 mg Prac tic tablet e metoprolol metoprolol No metoprolol [facility] tartrate 50 tartrate 50 tartrate Family mg tablet mg tablet 50 mg Prac tic twice a day twice a day tablet e twice a day modafinil modafinil No modafinil [facility] 200 mg 200 mg 200 mg Family tablet tablet tablet Practic e montelukast montelukast No montelukas [facility] 10 mg 10 mg t 10 mg Family tablet tablet tablet Practic e pantoprazol pantoprazol No pantoprazo [place] e 40 mg e 40 mg le 40 mg Famil y tablet,lorraine tablet,lorraine tablet,del Practic yed release yed release ayed e release polymyxin B polymyxin B No polymyxin [facility] sulfate sulfate B sulfate Fami ly 10,000 10,000 10,000 Practic unit-trimet unit-trimet unit-trime e hoprim 1 hoprim 1 thoprim 1 mg/mL eye mg/mL eye mg/mL eye drops drops drops sulfamethox sulfamethox No sulfametho [facility] azole 800 azole 800 xazole 800 Family mg-trimetho mg-trimetho mg-trimeth Practic prim 160 mg prim 160 mg oprim 160 e tablet tablet mg tablet Immunizations Ordered Filled Immunization Date Status Comments [facility] Immunization Name Name Ross Hawkins 2019-09-29 Completed [facility] - 00:00:00 [facility] Vital Signs Vital Name Observation Time Observation Value Comments Source Height 2020-06-28 00:00:00 65 [in_i] [facility] BMI (Body Mass 2020-06-28 00:00:00 30.8 kg/m2 [facility] Body Weight 2020-06-28 00:00:00 185 [lb_av] [facility] Procedures This patient has no known procedures. Plan of Care Planned Activity Planned Date Details Comments Source Future Scheduled Test 2020-06-11 INFLUENZA VACCINE H david [facility] 00:00:00 [code = INFLUENZA VACCINE] Future Scheduled Test 2013 65+ PNEUMOCOCCAL Ho lien [facility] 00:00:00 VACCINE (1 of - PPSV23) [code = 65+ PNEUMOCOCCAL VACCINE (1 of - PPSV23)] Future Scheduled Test 1998 BREAST CANCER [place] 00:00:00 SCREENING [code = BREAST CANCER SCREENING] Future Scheduled Test 1998 COLONOSCOPY SCREENING [place] [facility] 00:00:00 [code = COLONOSCOPY SCREENING] Future Scheduled Test 1998 [facility] 00:00:00 (#1) [code = SHINGLES VACCINES (#1)] Future Appointment 2020-12-31 Cindy GreenTay, V illage Family 00:00:00 [address] [facility]; [address] [address], [place] [phone] Encounters Start End Encounter Admission Attending Care Care Encounter Source Date/Time Date/Time Type Type Clinicians Facility Department ID 2020-07-26 2020-07-26 [facility] [id number] 2020-06-28 2020-06-28 [facility] [id number] [facility] 13:11:00 13:11:00 [facility] Medicine Outpati ent [facility] 2020-06-28 2020-06-28 [facility] [place] - [id number] V illage 00:00:00 00:00:00 Heather fischer PHARMACY INTERN: Medical - Practi c [address] [email or web address], [address] [place] [address] [address], [place] [address] , Ph. 2020-06-27 2020-06-27 [facility] [id number] [address] 08:55:00 08:55:00 [facility] Medicine Outpati ent Clinics 2020-06-24 2020-06-24 [facility] [id number] [facility] 11:20:00 11:20:00 t [facility] Medicine Outpati ent Clinics 2020-03-23 2020-03-23 [facility] [id number] [address] 11:00:00 11:00:00 t [facility] Medicine Outpati ent Clinics 2020-03-23 2020-03-23 [facility] - [id number] V illage 00:00:00 00:00:00 Senait Bauer y PHARMACY INTERN: [id number] Medical - Pract martin Vega, [email or web address] [facility], [facility], [place] [address] , Ph. 2020-02-22 2020-02-22 [facility] [id number] 14:41:00 14:41:00 t [facility] Medicine Outpati ent Clinics 2020-02-18 2020-02-18 [facility] [id number] 15:18:00 15:18:00 t [facility] Medicine Outpati ent Clinics 2020-02-01 2020-02-01 [facility] [id number] 13:35:00 13:35:00 t [facility] Medicine Outpati ent Clinics 2019-12-29 2019-12-29 [facility] [id number] 08:03:00 08:03:00 t [facility] Medicine Outpati ent Clinics 2019-09-29 2019-09-29 [facility] [id number] [address] 10:20:00 10:20:00 t [facility] Medicine Outpati ent Clinics 2019-09-28 2019-09-28 [facility] [id number] 16:57:00 16:57:00 t [place] [employer] [facility] Medicine Outpati ent Clinics 2019-09-15 2019-09-15 [facility] [id number] [facility] 14[facility]45:00 14:45:00 t [facility] Medicine Outpati ent Clinics 2019-07-07 2019-07-07 [facility] [id number] 13:40:00 13:40:00 t NuORDER s [employer] [facility] Medicine Outpati ent Clinics 2019-04-07 2019-04-07 [facility] [id number] 15:20:00 15:20:00 t [facility] Medicine Outpati ent Clinics 2019-01-07 2019-01-07 [facility] [id number] [facility] 15:30:00 15:30:00 t [facility] Medicine Outpati ent Clinics 2018-10-08 2018-10-08 [facility] [id number] [facility] 15:30:00 15:30:00 [employer] [facility] Medicine Outpati ent Clinics 2018-06-27 2018-06-27 [facility] [id number] 08:14:00 08:14:00 t [facility] Medicine Outpati ent Clinics 2018-06-25 2018-06-25 [facility] [id number] 10:30:00 10:30:00 [facility] Outpati ent Clinics Results This patient has no known results.
--- OUTSIDE RECORDS SUMMARY | 2020-09-10 22:43 | XMS REPORT ---
[...] Code Onset Dates Condition Statu s Assessment Benign essential HTN I10 Active Assessment Familial hyperlipidemia, high LDL E78.4 Active Problem Other chronic pain G89.29 Active Problem Varicose veins of both legs with I83.893 Active edema Problem Varicose veins of both lower I83.93 Active extremities Assessment Statin intolerance Z78.9 Active Problem Osteoarthritis of multiple joints, M15.9 Active unspecified osteoarthritis type Problem Mild memory disturbance R41.3 Acti ve Problem Familial hyperlipidemia, high LDL E78.4 Active Problem Lumbago with sciatica, unspecified M54.40 Active side Problem Varicose veins I86.8 Active Problem Diverticulosis of colon K57.30 Acti ve Problem Other cervical disc degeneration, M50.30 Active unspecified cervical region Problem Ventral hernia K43.9 Active Problem Gastro-esophageal reflux disease K21.9 Active without esophagitis Problem 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 lumbosacral intervertebral disc Problem Attention and concentration deficit R41.840 Active Problem Thinning hair L65.9 Active Problem Headache R51 Active Problem Cervicalgia M54.2 Active Assessment Allergic rhinitis J30.9 Active Problem Primary osteoarthritis of both M17.0 Active knees Problem Neuropathic pain M79.2 Active Assessment Other fatigue R53.83 Active Problem 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 Assessment 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 Problem Bilateral hearing loss, unspecified H91.93 Active hearing loss type Assessment Pain in right hip M25.551 Active Problem Diaphragmatic hernia without K44.9 Active obstruction or gangrene Assessment Pain in left hip M25.552 Active Problem Other fatigue R53.83 Active Assessment Varicose veins of both lower I83.93 Active extremities Problem Benign essential HTN I10 Active Assessment Osteoarthritis of multiple joints, M15.9 Active unspecified osteoarthritis type Problem Dizziness R42 Active Assessment Gastro-esophageal reflux disease K21.9 Active without esophagitis Problem DJD (degenerative joint disease) M19.90 Active Assessment Lumbago with sciatica, unspecified M54.40 Active side Problem GERD (gastroesophageal reflux K21.9 Active disease) Assessment Primary osteoarthritis of both M17.0 Active knees Problem Lipoma D17.9 Active Assessment Diaphragmatic hernia without K44.9 Active obstruction or gangrene Problem Narcolepsy G47.419 Active Problem Allergic rhinitis J30.9 Active Problem Hyperlipidemia E78.5 Active Medications Medication Code Code Instructions Start End Status Dosage System Date Date Flonase [facility] 46561316065 50 MCG/ACT Active 1 spray i n Nasally Once a each day nostril Metoprolol [facility] 44053661895 25 MG Orally Active 1 ta blet Tartrate Twice a day with food Singulair [facility] 05717505639 10 MG Active TAKE 1 TABLET BY MOUTH ONCE DAILY Ritalin SR NDC 0 Active not defined Pantoprazole [facility] 68876527216 40 MG Active TAKE 1 Sodium TABLET BY MOUTH ONCE DAILY Norvasc [facility] 41558305313 5 MG Active TAKE 1 TABLET BY MOUTH ONCE DAILY Pantoprazole [facility] 02657328727 40 MG Orally Active 1 tablet Sodium Once a day Metoprolol [facility] 13818483572 25 MG Orally Active 1 ta blet Tartrate Twice a day with food Amlodipine [facility] 23246140668 5 MG Orally Active 1 tab let Besylate Once a day Singulair [facility] 30612273993 10 MG Active TAKE 1 TABLET BY MOUTH ONCE DAILY Meclizine HCl [facility] 20050025253 25 MG Orally Active 1 tablet Once a day as needed Results No Known Results Summary Purpose eClinicalWorks Submission
--- OUTSIDE RECORDS SUMMARY | 2020-09-10 22:44 | XMS REPORT ---
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 Problem Bilateral hearing loss, unspecified H91.93 Active hearing loss type Problem Diaphragmatic hernia without K44.9 Active obstruction or gangrene Problem Other fatigue R53.83 Active Problem Benign essential HTN I10 Active Problem Dizziness R42 Active Problem DJD (degenerative joint disease) M19.90 Active Problem GERD (gastroesophageal reflux K21.9 Active disease) Problem Lipoma D17.9 Active Problem Narcolepsy G47.419 Active Problem Allergic rhinitis J30.9 Active Problem Hyperlipidemia E78.5 Active Medications Medication Code Code Instructions Start End Status Dosage System Date Date Metoprolol NDC 37513310730 50 MG Orally Jun 27, Active 1 ta blet Tartrate Twice a day 2019 with food Metoprolol NDC 67941860870 25 MG Orally Inactive 1 t ablet Tartrate Twice a day with food Results No Known Results Summary Purpose eClinicalWorks Submission
--- OUTSIDE RECORDS SUMMARY | 2020-09-10 22:44 | XMS REPORT ---
:1950 Author Organization [facility] Address [address] [place] [address] Care Team Providers Name Role Phone Edson Bryan Unavailable [phone] PROBLEMS Type Condition ICD9-CM [id number] Onset Condition SNOMED Code Notes Code Code Dates Status Problem Mild memory R41.3 Active 898530292 disturbance Problem Lumbago with M54.40 Active 425124631 sciatica, unspecified side Problem Familial E78.4 Active 50193297 hyperlipidemia, high LDL Problem Neuropathic pain M79.2 Active 588825383 Problem Other cervical M50.30 Active 39076182 disc degeneration, unspecified cervical region Problem Headache R51 Active 09566223 Problem Cervicalgia M54.2 Active 48682718 Problem Gastro-esophagea K21.9 Active 940578121 l reflux disease without esophagitis Problem Varicose veins I83.893 Active 69591118 of both legs with edema Problem Degeneration of M51.37 Active 72073498 lumbar or lumbosacral intervertebral disc Problem Other chronic G89.29 Active 41435709 pain Problem Osteoarthritis M15.9 Active 927617522 of multiple joints, unspecified osteoarthritis type Problem Varicose veins I83.93 Active 18654163265815980 of both lower extremities Problem Allergic J30.9 Active 09295343 rhinitis Problem Dizziness R42 Active 562688262 Problem Lipoma D17.9 Active 66991102 Problem Hyperlipidemia E78.5 Active 12798797 Problem Varicose veins I86.8 Active 330310467 Problem Narcolepsy G47.419 Active 50058376 Problem Ventral hernia K43.9 Active 191522164 Problem Diverticulosis K57.30 Active 036366490 of colon Problem Bilateral H91.93 Active 31424208 hearing loss, unspecified hearing loss type Problem Narcolepsy and G47.411 Active 988687187 cataplexy Problem Other fatigue R53.83 Active 65621702 Problem Primary M17.11 Active 389031585548187 osteoarthritis of right knee Problem GERD K21.9 Active 301347688 (gastroesophagea l reflux disease) Problem Primary M17.12 Active 159218864885969 osteoarthritis of left knee Problem DJD M19.90 Active 976865180 (degenerative joint disease) Problem Benign essential I10 Active 87758644 HTN Problem Diaphragmatic K44.9 Active 29784971 hernia without obstruction or gangrene Problem Thinning hair L65.9 Active 419331117 Problem Attention and R41.840 Active 08067576 concentration deficit Problem Primary M17.0 Active 719213452 osteoarthritis of both knees ALLERGIES Allergen (clinical Drug/Non Drug Reaction Allergy Type Onset Date S tatus drug ingredient) Allergy documented on EMR Ibuprofen Unknown Drug Allergy Active Inder Aspirin Unknown Drug Allergy Active latex Unknown Non Drug Allergy Active PCN Unknown Drug Allergy Active Zocor Unknown Drug Allergy Active ENCOUNTERS from 1950 to 2020-08-03 Encounter Location Date Provider Diagnosis [facility] [address] Jul, Edson Bryan Pain , joint, knee, [facility] [address] M25.56 1 ; Pain, [place] [address] M25.562 ; Prima ry osteoarthritis of right knee M17.11 and Primary osteoarthritis of left knee M17.12 IMMUNIZATIONS No Information SOCIAL HISTORY Sex Assigned At : Social History Observation Description Sex Assigned At Unknown REASON FOR REFERRAL No Information VITAL SIGNS Height 65.00 in Jul, Weight 186 lbs Jul, Temperature 97.3 degrees Fahrenheit Jul, BMI 30.95 kg/m2 Jul, Blood pressure systolic 148 mm Hg Jul, Blood pressure diastolic 90 mm Hg Jul, MEDICATIONS Medication SIG (Take, Route, Start Date End Date Status Frequency, Duration) Meclizine HCl 25 MG 1 tablet as needed Orally Unknown Once a day Naproxen Active Amlodipine Besylate 5 MG 1 tablet Orally Once a day Active for 90 days Metoprolol Tartrate 50 MG 1 tablet with food Orally Jun, Active Twice a day for 90 days Singulair 10 MG TAKE 1 TABLET BY MOUTH No t-Taking ONCE DAILY Flonase 50 MCG/ACT 1 spray in each nostril Unknown Nasally Once a day Pantoprazole Sodium 40 MG 1 tablet Orally Once a day Active for 90 day(s) Metoprolol Tartrate 25 MG 1 tablet with food Orally Unknown Twice a day Ritalin SR Active Norvasc 5 MG TAKE 1 TABLET BY MOUTH Unkno wn ONCE DAILY Pantoprazole Sodium 40 MG TAKE 1 TABLET BY MOUTH Unknown ONCE DAILY Singulair 10 MG TAKE 1 TABLET BY MOUTH Ac tive ONCE DAILY for 90 days PROCEDURES No Information RESULTS No Results REASON FOR VISIT New Pt [place] knee osteoarthritis MEDICAL (GENERAL) HISTORY Type Description Date Medical History Benign essential HTN Medical History Narcolepsy Medical History GERD (gastroesophageal reflux disease) Medical History Varicose veins Medical History Lipoma Medical History Hyperlipidemia Medical History Diverticulosis of colon Medical History Degeneration of lumbar or lumbosacral in tervertebral disc Medical History Other cervical disc degeneration, unspec ified cervical region Medical History DJD (degenerative joint disease) Medical History Ventral hernia Medical History Headache Medical History Allergic rhinitis Medical History Dizziness Medical History Cervicalgia Medical History Neuropathic pain Surgical History CTR Surgical History liposuction Surgical History left breast 1993 Goals Section No Information Health Concerns No Information MEDICAL EQUIPMENT No Information MENTAL STATUS No Information FUNCTIONAL STATUS No Information ASSESSMENTS Encounter Date Diagnosis Notes Jul, Primary osteoarthritis of right knee (IC D-10 - M17.11) Jul, Pain, joint, knee, left (ICD-10 - M25.56 2) Jul, Primary osteoarthritis of left knee (ICD -10 - M17.12) Jul, Pain, joint, knee, right (ICD-10 - M25.5 61) PLAN OF TREATMENT Treatment Notes Test Name Order Date X-RAY EXAM KNEE 1 OR 2 VIEWS ([id number]) 2020-08-03 X-RAY EXAM KNEE STANDING VIEW ([id number]) 2020-08-03 XR KNEE 1 OR 2 (03664) 2020-08-03 Next Appt Details prn Reason:
--- OUTSIDE RECORDS SUMMARY | 2020-09-10 22:44 | XMS REPORT | Encounter Summary ---
:1950 Author Care Team Providers Name Role Phone Dr. Cherri Harley Primary Care Provider Unavailable Asha Burrows DO Primary Care Provider [phone] Reason for Visit Gastroesophageal reflux disease; Essenti al hypertension; Telemedicine Visit Instructions 1. Essential hypertension 2. Gastroesophageal reflux disea se 3. Falls Discussion Note Patient denies any acute issues at this time. Patient report she has an up coming appt with cory Burrows. Patient educational handouts: No information available. Plan of Care Reminders Provider Appointments Telemedicine on or around Cindy 12/31/2020 [facility] None recorded. Referral None recorded. Procedures None recorded. Surgeries None recorded. Imaging None recorded. Medications Name Start Date amlodipine 5 mg tablet cephalexin 500 mg capsule methylphenidate 10 mg tablet methylphenidate ER 20 mg tablet,extended release metoprolol tartrate 25 mg tablet metoprolol tartrate 50 mg tablet twice a day modafinil 200 mg tablet montelukast 10 mg tablet pantoprazole 40 mg tablet,delayed release polymyxin B sulfate 10,000 unit-trimethoprim 1 mg/mL e ye drops sulfamethoxazole 800 mg-trimethoprim 160 mg tablet Medications Administered None recorded. Vitals Height Weight BMI 5 ft 5 in 185 lbs 30.8 kg/m2 Results Lab Results None recorded. Allergies Code Code System Name Reaction Severity Status Onset 1191 RxNorm Aspirin Active 2670 RxNorm Codeine Active 54740 RxNorm Gabapentin Active Penicillins Active Problems Name Status Onset Date Source Narcolepsy Active 01/18/2020 Essential Hypertension Active 01/18/2020 Seasonal Allergic Rhinitis Active 01/18/2020 Gastroesophageal Reflux Disease Active 01/18/2020 Procedures None recorded. Vaccine List None recorded. 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 History of Present Illness Hyperlipidemia Reported By: Patient HPI: Control: usually well contro lled. Compliance: compliant. Complications: no coronary artery disease, no peripheral artery disease, no cardiovascular disease Hypertension Reported By: Patient HPI: Onset/Timing: better. Medica tions: taking medications as directed, no side effects from medication . Associated Symptoms: no shortness of breath Note: I confirm that I received verbal consent from the patient for the virtual visit.
This telemedicine encounter was performed using live {{video and audio*|audio only because either patient did not have technology or unable to connect due to technical problems}}.
<strong>(for audio only)</strong> Total time spent with patient: {{55#| }} minutes.<div>[facility] ( DUSTIN: _Aminata Harjinder-Mbayo ) reviewed the [employer] [facility] consent form verbally withpatient. Patient {{did*|did not}} have questions. Any and all patient questions were addressed. Patient consented to health care services provided via [facility] [facility]. Patient was directed to the [facility] website to review the form in greater detail. Patient was informed that a physical copy of the consent would be mailed to his/her home. Patient confirmed that, upon receipt of the consent, that he/she will sign and return the form in the pre-addressed and stamped envelope.</div> Review of Systems Comprehensive General Adult ROS Reported By: Patient Constitutional: Constitutional: no fever, no night sweats, no significant weight gain, no significant weight loss, no exercise intolerance Eyes: Eyes: no dry eyes, no vision change, no irritation ENMT: Ears: no difficulty hearing, no ear pain. Nose: no frequent nosebleeds, no nose problems , no sinus problems. Mouth/Throat: no sore throat, no bleeding gums, no snoring, no dry mouth, no mouth ulcers, no oral abnorm alities, no teeth problems Cardiovascular: Cardiovascular: no chest magda n, no arm pain on exertion, no shortness of breath when wal adelaida, no shortness of breath when lying down, no palpitations, no known heart murmur, no lightheadedness Respiratory: Respiratory: no cough, no wh eezing, no shortness of breath, no coughing up blood, no sleep apnea Gastrointestinal: Gastrointestinal: no abdomin al pain, no nausea, no vomiting, no constipation, normal appe tite, no diarrhea, not vomiting blood, no dyspepsia, no GERD Genitourinary: Genitourinary: no incontinen ce, no difficulty urinating, no hematuria, no increased freq uency Musculoskeletal: Musculoskeletal: no muscle a ches, no muscle weakness, no arthralgias/joint pain, no b ack pain, no swelling in the extremities Integumentary: Skin: no abnormal mole, no j aundice, no rashes, no laceration Neurologic: Neurologic: no loss of consc iousness, no weakness, no numbness, no seizures, no di zziness, no migraines, no headaches, no tremor Psychiatric: Psych: no depression, no sle ep disturbances, feeling safe in a relationship, no alcohol abu se, no anxiety, no hallucinations, no suicidal thoughts Endocrine: Endocrine: no fatigue Hematologic/Lymphatic: Hematologic/Lymphatic no swo llen glands, no bruising, no excessive bleeding Allergic/Immunologic: Allergy/Immunologic: no runn y nose, no sinus pressure, no itching, no hives, no freque nt sneezing Physical Exam Telemedicine/Virtual Visit Reported By: Patient Psychiatric: Insight: good judgement. Men jason Status: active and alert, normal mood, normal affect. Orientation: to time, to place, to person. Memory: recent memory normal"
--- OUTSIDE RECORDS SUMMARY | 2020-09-10 22:44 | XMS REPORT ---
:1950 Author Organization [employer] Care Team Providers Name Role Phone Asha Burrows Provider Role Unavailable Allergies No Known Allergies Problems Problem Type Condition Code Onset Dates Condition Statu s Problem Other chronic pain G89.29 Active Problem [...] J30.9 Active Problem Hyperlipidemia E78.5 Active Medications No Known Medications Results No Known Results Summary Purpose [employer] Submission
[2020-09-10 23:26] LABS: Basophils % 1.3 % (0-1.3); Hematocrit 40.7 % (36.0-45.0); Lymphocytes % 35.9 % (15.3-44.8); MPV 7.7 fL (7.6-11.3)
[2020-09-10 23:30] LABS: Protime INR 0.92
[2020-09-10] MEDS ORDERED: ONDANSETRON 4 MG/2 ML VIAL ONE (23:31)
[2020-09-10 23:39] LABS: Potassium 3.4 mmol/L (3.5-5.1)
[2020-09-10] MEDS ORDERED: NA CHLORIDE 0.9% 1,000 ML ONE (23:55)
[2020-09-11 00:13] LABS: Barbiturates NEGATIVE (NEGATIVE); Benzodiazepines NEGATIVE (NEGATIVE); Cocaine NEGATIVE (NEGATIVE); METHAMPHETAM NEGATIVE (NEGATIVE); Methadone NEGATIVE (NEGATIVE); Opiates NEGATIVE (NEGATIVE); Phencyclidine NEGATIVE (NEGATIVE); THC Cannibis NEGATIVE (NEGATIVE)
--- NOTE | 2020-09-11 01:24 | EDPHYS ---
Physician Documentation [facility] Name: Monie Dailey Age: 70 yrs Sex: Female : 1950 Arrival Date: 09/10/2020 Time: 22:43 Bed 17 Private MD: ED Physician Omar Ojeda HPI: 09/10 23:57 This 70 yrs old Female presents to ER via Wheelchair with complaints of mh7 Slurred Speech, Doesn't Feel Right. 23:57 The patient presents to the emergency department with a speech or higher order brain mh7 function problem, slurred. Onset: The symptoms/episode began/occurred today, at an unknown time. Context: occurred at home, occurred while the patient was sitting. 23:59 Associated signs and symptoms: Pertinent positives: dizziness, nausea, Pertinent mh7 negatives: altered mental status, chills, fever, headache, neck stiffness, paresthesias, seizure, syncope, near-syncope, blurred vision, double vision, visual field changes, loss of vision, weakness. Severity of symptoms: At their worst the symptoms were moderate today, in the emergency department the symptoms have improved mildly. Patient's baseline: Neuro: alert and fully oriented, Motor: no deficits, Ambulation: walks without assistance, Speech: normal. Current symptoms: dizziness, nausea. Patient son states that he talked to her on phone \[phone] and she was her normal self. He then spoke with her \T\5 and she had some slurred speech. She admits to drinking alcohol tonight and tripped and fell. She denies any chest pain, abdominal pain, SOB, fever, cough, vomiting, numbness/tingling, or weakness.. Historical: - Allergies: 23:09 Aspirin; sg 23:09 Codeine; sg 23:09 Ibuprofen; sg 23:09 Latex, Natural Rubber; sg 23:09 PENICILLINS; sg 23:09 teramycin; sg - Home Meds: 09/11 00:08 amlodipine 5 mg tab 1 tab once daily [Active]; metoprolol tartrate 50 mg Oral tab 1 tab mg2 2 times per day [Active]; Protonix 40 mg Oral TbEC 1 tab once daily [Active]; montelukast 10 mg Oral tab 1 tab once daily [Active]; Ritalin 10 mg Oral tab 1 tab 2 times per day [Active]; - PMHx: 09/10 23:09 breast cancer; Hypertension; narcolepsy; neuropathy; sg - PSHx: 23:09 Tubal ligation; L partial breast removal; Carpal Tunnel Repair; sg - Immunization history:: Adult Immunizations up to date. - Social history:: Smoking status: Patient denies any tobacco usage or history of. ROS: 23:59 Constitutional: Negative for fever, chills, and weight loss, Eyes: Negative for injury, mh7 pain, redness, and discharge, ENT: Negative for injury, pain, and discharge, Neck: Negative for injury, pain, and swelling, Cardiovascular: Negative for chest pain, palpitations, and edema, Respiratory: Negative for shortness of breath, cough, wheezing, and pleuritic chest pain, Back: Negative for injury and pain, : Negative for injury, bleeding, discharge, and swelling, MS/Extremity: Negative for injury and deformity, Skin: Negative for injury, rash, and discoloration, Psych: Negative for depression, anxiety, suicide ideation, homicidal ideation, and hallucinations, Allergy/Immunology: Negative for hives, rash, and allergies, Endocrine: Negative for neck swelling, polydipsia, polyuria, polyphagia, and marked weight changes, Hematologic/Lymphatic: Negative for swollen nodes, abnormal bleeding, and unusual bruising. Exam: 23:59 Head/Face: Normocephalic, atraumatic. Eyes: Pupils equal round and reactive to light, mh7 extra-ocular motions intact. Lids and lashes normal. Conjunctiva and sclera are non-icteric and not injected. Cornea within normal limits. Periorbital areas with no swelling, redness, or edema. ENT: Nares patent. No nasal discharge, no septal abnormalities noted. Tympanic membranes are normal and external auditory canals are clear. Oropharynx with no redness, swelling, or masses, exudates, or evidence of obstruction, uvula midline. Mucous membranes moist. Neck: Trachea midline, no thyromegaly or masses palpated, and no cervical lymphadenopathy. Supple, full range of motion without nuchal rigidity, or vertebral point tenderness. No Meningismus. Chest/axilla: Normal chest wall appearance and motion. Nontender with no deformity. No lesions are appreciated. Cardiovascular: Regular rate and rhythm with a normal S1 and S2. No gallops, murmurs, or rubs. Normal PMI, no JVD. No pulse deficits. Respiratory: Lungs have equal breath sounds bilaterally, clear to auscultation and percussion. No rales, rhonchi or wheezes noted. No increased work of breathing, no retractions or nasal flaring. Abdomen/GI: Soft, non-tender, with normal bowel sounds. No distension or tympany. No guarding or rebound. No evidence of tenderness throughout. Back: No spinal tenderness. No costovertebral tenderness. Full range of motion. Skin: Warm, dry with normal turgor. Normal color with no rashes, no lesions, and no evidence of cellulitis. MS/ Extremity: Pulses equal, no cyanosis. Neurovascular intact. Full, normal range of motion. 23:59 Psych: Awake, alert, with orientation to person, place and time. Behavior, mood, and affect are within normal limits. 23:59 Constitutional: The patient appears in no acute distress, alert, awake, smells of alcohol, ETOH. 23:59 Neuro: Orientation: is normal, Mentation: is normal, Memory: is normal, immediate memory is intact, Cranial nerves: grossly normal, Cerebellar function: is grossly normal, Motor: is normal, Sensation: is normal, Gait: not tested. Deep tendon reflexes are normal, Babinski testing is normal, seizure activity, is not displayed by the patient, Abnormal movements: there are no abnormal movements. Vital Signs: 23:09 Pulse 53; Resp 16; Temp 97.7; Pulse Ox 96% on R/A; Pain 0/10; sg 23:25 BP 93 / 69; mg2 23:57 BP 112 / 80; Pulse 65; Resp 18; Pulse Ox 100% on R/A; mg2 09/11 01:31 BP 110 / 60; Pulse 66; Resp 18; Temp 98; Pulse Ox 100% on R/A; mg2 NIH Stroke Scale Scores: 09/10 23:15 NIHSS Score: 0 mg2 MDM: 23:30 Patient medically screened. 7 09/11 01:22 Data reviewed: vital signs, nurses notes, EMS record, lab test result(s), cardiac [facility] enzymes, CBC, electrolytes, urinalysis, urine drug screen, EKG, radiologic studies, CT scan, plain films. Data interpreted: Pulse oximetry: on room air is 100 %. Interpretation: normal. Counseling: I had a detailed discussion with the patient and/or guardian regarding: the historical points, exam findings, and any diagnostic results supporting the discharge/admit diagnosis, lab results, radiology results, the need for outpatient follow up, to return to the emergency department if symptoms worsen or persist or if there are any questions or concerns that arise at home. Response to treatment: the patient's symptoms have resolved after treatment, the patient's blood pressure is in an acceptable range, mental status has returned to baseline, the patient no longer shows bradycardia, the patient is not short of breath, the patient is not tachycardic, the patient's pain is gone, the patient's temperature has normalized. 06:43 ED course: NAD, VSS, No focal neurological deficits. Ambulated without difficulty. mh7 Patient adamantly requested to be discharged from the ED. Her son was at the bedside and agreed to take her home.. 09/10 23:20 Order name: Basic Metabolic Panel; Complete Time: 23:40 [facility] 09/10 23:20 Order name: CBC with Diff; Complete Time: 23:40 [facility] 09/10 23:20 Order name: Protime (+inr); Complete Time: 23:40 [facility] 09/10 23:20 Order name: Ptt, Activated; Complete Time: 23:40 [facility] 09/10 23:20 Order name: ETOH Level; Complete Time: 23:55 [facility] 09/10 23:20 Order name: UDS; Complete Time: 00:32 [facility] 09/10 23:21 Order name: Glucose, Ancillary Testing; Complete Time: 23:40 [facility] 09/11 01:37 Order name: Liver (Hepatic) Function; Complete Time: 01:12 [facility] 09/11 01:37 Order name: Troponin I; Complete Time: 01:12 [facility] 09/11 01:37 Order name: NT PRO-BNP; Complete Time: 01:12 [facility] 09/10 23:00 Order name: CT Stroke Brain w/o Contrast 09/10 23:20 Order name: Stroke CXR 1 View [facility] 09/10 23:20 Order name: EKG; Complete Time: 23:21 [facility] 09/10 23:20 Order name: Accucheck; Complete Time: 23:21 [facility] 09/10 23:20 Order name: Cardiac monitoring; Complete Time: 23:21 [facility] 09/10 23:20 Order name: EKG - Nurse/Tech; Complete Time: 23:21 7 09/10 23:20 Order name: IV Saline Lock; Complete Time: 23:21 [facility] 09/10 23:20 Order name: Labs collected and sent; Complete Time: 23:21 7 09/10 23:20 Order name: NPO; Complete Time: 23:22 [facility] 09/10 23:20 Order name: O2 Per Protocol; Complete Time: 23:21 [facility] 09/10 23:20 Order name: O2 Sat Monitoring; Complete Time: 23:22 [facility] 09/10 23:20 Order name: Stroke Swallow Screen; Complete Time: 23:22 [facility] 09/10 23:20 Order name: Urine Dipstick-Ancillary (obtain specimen); Complete Time: 00:06 [facility] 09/11 01:37 Order name: Lipase; Complete Time: 01:12 EDMS Administered Medications: 09/10 23:24 Drug: Zofran (Ondansetron) 4 mg Route: IVP; Site: right antecubital; mg2 09/11 00:38 Follow up: Response: No adverse reaction; Marked relief of symptoms; Nausea is decreasedmg2 09/10 23:24 Drug: NS 0.9% 1000 ml Route: IV; Rate: 1000 ml; Site: right antecubital; mg2 09/11 00:39 Follow up: Response: No adverse reaction; IV Status: Completed infusion; IV Intake: mg2 1000ml Point of Care Testing: Blood Glucose: 09/10 23:25 Blood Glucose: 125 mg/dL; mg2 Ranges: Critical Glucose Levels:Adult <50 mg/dl or >400 mg/dl <40 mg/dl or >180 mg/dl Disposition: 09/11/20 01:24 Discharged to Home. Impression: Alcohol Intoxication. - Condition is Stable. - Discharge Instructions: Alcohol Intoxication, [id number]. - Medication Reconciliation Form, Thank You Letter, Antibiotic Education, Prescription Opioid Use form. - Follow up: Private Physician; When: 1 - 2 days; Reason: Worsening of condition, Recheck today's complaints, Continuance of care, Re-evaluation by your physician. - Problem is new. - Symptoms are resolved. NIH Stroke Scale - NIH Stroke Score Date: 09/10/2020 Time: 23:15 Total Score = 0 1a. Level of Consciousness (LOC) - 0(Alert) 1b. Level of Consciousness (LOC) (Year \T\ Age) - 0(Both) 1c. LOC Commands (Open \T\ Closes Eyes/Tunnel Elastic Operator Zigzag) - 0(Both) 2. Best Gaze (Lateral Gaze Paresis) - 0(Normal) 3. Visual Field Loss - 0(No visual loss) 4. Facial Palsy - 0(Normal) 5a. Left Arm: Motor (10-second hold) - 0(No drift) 5b. Right Arm: Motor (10-second hold) - 0(No drift) 6a. Left Leg: Motor (5-second hold - always test supine) - 0(No drift) 6b. Right Leg: Motor (5-second hold - always test supine) - 0(No drift) 7. Limb Ataxia (finger/nose \T\ heel/espinal - test with eyes open) - 0(Absent) 8. Sensory Loss (pinprick arms/legs/face) - 0(Normal) 9. Best Language: Aphasia (description/naming/reading) - 0(No aphasia) 10. Dysarthria (speech clarity - read or repeat words) - 0(Normal) 11. Extinction and Inattention (visual/tactile/auditory/spatial/personal) - 0(No abnormality) Initials: mg2 Signatures: Dispatcher [employer] EDMS Justo Goldman RN RN sg Emeterio Alas RN RN mg2 Omar Ojeda MD MD mh7 Corrections: (The following items were deleted from the chart) 09/11 01:32 01:24 09/11/2020 01:24 Discharged to Home. Impression: Alcohol Intoxication. mg2 Condition is Stable. Forms are Medication Reconciliation Form, Thank You Letter, Antibiotic Education, Prescription Opioid Use. Follow up: Private Physician; When: 1 - 2 days; Reason: Worsening of condition, Recheck today's complaints, Continuance of care, Re-evaluation by your physician. Problem is new. Symptoms are resolved. mh7
--- NOTE | 2020-09-11 01:24 | ER ---
Nurse's Notes [facility] Name: Monie Dailey Age: 70 yrs Sex: Female : 1950 Arrival Date: 09/10/2020 Time: 22:43 Bed 17 Private MD: Diagnosis: Alcohol Intoxication Presentation: 09/10 23:06 Chief complaint: Patient states: I just feel really really drunk and I only had one sg drink of gin like I always do every night, and I got up to walk to get the phone and I just fell down, Im just clumsy, I dont know whats iliana on with me. I feel weird Patient's son or daughter states: She called me and told me that she felt really dizzy and uncoordinated and said she wasn't feeling normal an I noticed that her speech was really slurred. She told me that she did drink tonight like she does everynight but not any more than usual with her alcohol. This was all about 2129. Coronavirus screen: Client denies travel out of the [place] in the last 14 days. At this time, the client does not indicate any symptoms associated with coronavirus-19. Ebola Screen: Patient negative for fever greater than or equal to 101.5 degrees Fahrenheit, and additional compatible Ebola Virus Disease symptoms Patient denies exposure to infectious person. Patient denies travel to an Ebola-affected area in the 21 days before illness onset. No symptoms or risks identified at this time. An acute neurological deficit is present. The charge nurse has been notified. The patient has been moved to a treatment area. Initial Sepsis Screen: Does the patient meet any 2 criteria? No. Patient's initial sepsis screen is negative. Does the patient have a suspected source of infection? No. Patient's initial sepsis screen is negative. Onset of symptoms was September 10, 2020. Care prior to arrival: None. Transition of care: patient was not received from another setting of care. 23:06 Method Of Arrival: Wheelchair sg 23:06 Acuity: MINGO 2 sg 09/11 00:08 Risk Assessment: Do you want to hurt yourself or someone else? Patient reports no mg2 desire to harm self or others. Triage Assessment: 09/10 23:57 General: Appears in no apparent distress. comfortable, Behavior is calm, cooperative. mg2 23:57 General: Smells of alcohol, and emesis. sg 09/11 00:08 The onset of the patients symptoms was September 10, 2020 at 21:16. mg2 Stroke Activation: Symtpom onset >3 hours and < 6 hours Physician: Stroke Attending; Name: ; Notified At: ; Arrived At: Physician: Chief Stroke Resident; Name: ; Notified At: ; Arrived At: Physician: Stroke Resident; Name: ; Notified At: ; Arrived At: Physician: ED Attending; Name: ; Notified At: ; Arrived At: Physician: ED Resident; Name: ; Notified At: ; Arrived At: Historical: - Allergies: 09/10 23:09 Aspirin; sg 23:09 Codeine; sg 23:09 Ibuprofen; sg 23:09 Latex, Natural Rubber; sg 23:09 PENICILLINS; sg 23:09 teramycin; sg - Home Meds: 09/11 00:08 amlodipine 5 mg tab 1 tab once daily [Active]; metoprolol tartrate 50 mg Oral tab 1 tab mg2 2 times per day [Active]; Protonix 40 mg Oral TbEC 1 tab once daily [Active]; montelukast 10 mg Oral tab 1 tab once daily [Active]; Ritalin 10 mg Oral tab 1 tab 2 times per day [Active]; - PMHx: 09/10 23:09 breast cancer; Hypertension; narcolepsy; neuropathy; sg - PSHx: 23:09 Tubal ligation; L partial breast removal; Carpal Tunnel Repair; sg - Immunization history:: Adult Immunizations up to date. - Social history:: Smoking status: Patient denies any tobacco usage or history of. Screenin:13 Abuse screen: Denies threats or abuse. Denies injuries from another. Nutritional mg2 screening: No deficits noted. Tuberculosis screening: No symptoms or risk factors identified. Fall Risk IV access (20 points). Assessment: 22:55 General: code stroke called. patient sent to CT . mg2 23:15 Patient has been NPO before screening. The patient is alert, and able to follow mg2 commands. The patient does not exhibit slurred or garbled speech. The patient is not exhibiting difficulty speaking. The patient does not exhibit difficulty understanding words. The patient is able to swallow own secretions with no drooling or need for suction. Patient tolerated one teaspoon of water. No drooling, immediate coughing, gurgling, or clearing of the throat was noted. The patient passed the bedside swallow screening. Oral medications may be given as ordered. Contact Physician for further diet orders. Provider notified of bedside swallow screening results: Omar Ojeda MD. 23:15 VAN Scoring: Arm Drift: Patients demonstrates NO arm weakness. Patient is VAN Negative. mg2 23:20 Pain: Denies pain. Neuro: Level of Consciousness is awake, alert, obeys commands, mg2 Oriented to person, place, time, situation. Cardiovascular: Capillary refill < 3 seconds Patient's skin is warm and dry. Respiratory: Airway is patent Respiratory effort is even, unlabored, Respiratory pattern is regular, symmetrical. GI: Pt is actively vomiting. : No signs and/or symptoms were reported regarding the genitourinary system. EENT: No signs and/or symptoms were reported regarding the EENT system. Derm: Skin is intact, is healthy with good turgor, Skin is pink, warm \T\ dry. normal. Musculoskeletal: Circulation, motion, and sensation intact. Capillary refill < 3 seconds. 09/11 00:09 T-PA (Activase) Screening: Contraindications: Other: not indicated. mg2 01:40 Reassessment: pt assisted to the restroom, ambulatory with steady gait, pt tolerating sg well, placed back to exam room stretcher, on monitors, IVF complete, pt awaiting dispo, reports ready to go home. Vital Signs: 09/10 23:09 Pulse 53; Resp 16; Temp 97.7; Pulse Ox 96% on R/A; Pain 0/10; sg 23:25 BP 93 / 69; mg2 23:57 BP 112 / 80; Pulse 65; Resp 18; Pulse Ox 100% on R/A; mg2 09/11 01:31 BP 110 / 60; Pulse 66; Resp 18; Temp 98; Pulse Ox 100% on R/A; mg2 NIH Stroke Scale Scores: 09/10 23:15 NIHSS Score: 0 mg2 ED Course: 22:43 Patient arrived in ED. bp1 22:55 Omar Ojeda MD is Attending Physician. mh7 22:55 Emeterio Alas, SUMANTH is Primary Nurse. mg2 23:06 Arm band placed on. sg 23:08 Triage completed. sg 23:10 Inserted saline lock: 20 gauge in right antecubital area, using aseptic technique. ds4 Blood collected. 23:11 CT Stroke Brain w/o Contrast In Process Unspecified. EDMS 23:47 Patient has correct armband on for positive identification. Door closed. Warm blanket mg2 given. 23:47 No provider procedures requiring assistance completed. mg2 23:48 Stroke CXR 1 View In Process Unspecified. EDMS 09/11 01:32 IV discontinued, intact, bleeding controlled, No redness/swelling at site. Pressure mg2 dressing applied. Administered Medications: 09/10 23:24 Drug: Zofran (Ondansetron) 4 mg Route: IVP; Site: right antecubital; mg2 09/11 00:38 Follow up: Response: No adverse reaction; Marked relief of symptoms; Nausea is decreasedmg2 09/10 23:24 Drug: NS 0.9% 1000 ml Route: IV; Rate: 1000 ml; Site: right antecubital; mg2 09/11 00:39 Follow up: Response: No adverse reaction; IV Status: Completed infusion; IV Intake: mg2 1000ml Point of Care Testing: Blood Glucose: 09/10 23:25 Blood Glucose: 125 mg/dL; mg2 Ranges: Intake: 09/11 00:39 IV: 1000ml; Total: 1000ml. mg2 Outcome: 01:24 Discharge ordered by . mh7 01:32 Discharged to home ambulatory, with family. mg2 01:32 Condition: stable 01:32 Discharge instructions given to patient, family, Instructed on discharge instructions, follow up and referral plans. Demonstrated understanding of instructions, follow-up care. 01:32 Patient left the ED. mg2 NIH Stroke Scale - NIH Stroke Score Date: 09/10/2020 Time: 23:15 Total Score = 0 1a. Level of Consciousness (LOC) - 0(Alert) 1b. Level of Consciousness (LOC) (Year \T\ Age) - 0(Both) 1c. LOC Commands (Open \T\ Closes Eyes/Partition Setter) - 0(Both) 2. Best Gaze (Lateral Gaze Paresis) - 0(Normal) 3. Visual Field Loss - 0(No visual loss) 4. Facial Palsy - 0(Normal) 5a. Left Arm: Motor (10-second hold) - 0(No drift) 5b. Right Arm: Motor (10-second hold) - 0(No drift) 6a. Left Leg: Motor (5-second hold - always test supine) - 0(No drift) 6b. Right Leg: Motor (5-second hold - always test supine) - 0(No drift) 7. Limb Ataxia (finger/nose \T\ heel/espinal - test with eyes open) - 0(Absent) 8. Sensory Loss (pinprick arms/legs/face) - 0(Normal) 9. Best Language: Aphasia (description/naming/reading) - 0(No aphasia) 10. Dysarthria (speech clarity - read or repeat words) - 0(Normal) 11. Extinction and Inattention (visual/tactile/auditory/spatial/personal) - 0(No abnormality) Initials: mg2 Signatures: Dispatcher [employer] EDJusto Sunshine RN RN sg Tone Mercado ds4 Emeterio Alas RN RN mg2 Salome Astudillo Maurice, MD MD 7
[2020-09-11 01:37] LABS: ALT/SGPT 28 U/L (12-78); AST/SGOT 16 U/L (15-37); Albumin 3.6 g/dL (3.4-5.0); Alkaline Phosphatase 64 U/L (45-117); Bilirubin Direct < 0.1 mg/dL (0-0.2); Bilirubin Total 0.3 mg/dL (0.2-1.0); Lipase 123 U/L (73-393); NT PRO-BNP 141 pg/mL (<125); Protein, Total 7.1 g/dL (6.4-8.2); Troponin I < 0.02 ng/mL (0.0-0.045)
[2020-09-11 01:52] VITALS: TEMP 97.7
[2020-09-11 02:07] VITALS: BP 112/80; O2SAT 100
--- NOTE | 2020-09-11 07:48 | RAD REPORT ---
EXAM DESCRIPTION: RAD - Chest Single View - 09/10/2020 11:48 pm CLINICAL HISTORY: slurred speech, Stroke protocol chest film COMPARISON: March 2017 TECHNIQUE: AP portable chest image was obtained 09/10/2020 11:48 pm . FINDINGS: Lung volumes are low. No peripheral mass or consolidation. Heart size is upper normal, sli ghtly increased from comparison. Vasculature has increased slightly. No measurable pleural effusion a nd no pneumothorax. No acute bony abnormality seen. No acute aortic findings suspected. IMPRESSION: No peripheral mass consolidation. Heart, vasculature and lung markings are mildly prominent, all accentuated due to shallow inspiration . Minimal failure or volume overload doubtful but not excluded.
--- NOTE | 2020-09-11 12:23 | RAD REPORT ---
EXAM DESCRIPTION: CT - Ct Stroke Brain Wo Cont - 09/11/2020 4:02 am CLINICAL HISTORY: Slurred speech;Visual disturbances;Dizziness;Confused COMPARISON: None. TECHNIQUE: CT HEAD WITHOUT IV CONTRAST on 09/10/2020 11:00 PM CDT This exam was performed according to our departmental dose-optimization program, which includes autom ated exposure control, adjustment of the mA and/or kV according to patient size and/or use of iterati ve reconstruction technique. FINDINGS: There is no acute hemorrhage, mass effect or midline shift. Ramirez-white differentiation is preserved. There is no hydrocephalus. There is no significant volume loss for age. The calvarium is intact. Orbits and globes are unremarkable. The paranasal sinuses are clear. Mastoid air cells are clear. IMPRESSION: No acute intracranial findings. Electronically signed by: Zeke Verduzco MD 09/10/2020 11:27 PM CDT Due to temporary technical issues with the PACS/Fluency reporting system, reports are being signed by the in house radiologists without review as a courtesy to insure prompt reporting. The interpreting radiologist is fully responsible for the content of the report.
== END 2020-09-11 01:32 | disposition home or self-care (01) ==
LOC: ER 22:40
DX: F10.129 Alcohol abuse with intoxication, unspecified (principal); I10 Essential (primary) hypertension; W01.0XXA Fall on same level from slipping, tripping and stumbling without subsequent striking against object, initial encounter; Y93.89 Activity, other specified; Y92.009 Unspecified place in unspecified non-institutional (private) residence as the place of occurrence of the external cause; Z85.3 Personal history of malignant neoplasm of breast; Z88.0 Allergy status to penicillin; Z88.1 Allergy status to other antibiotic agents; Z88.5 Allergy status to narcotic agent; Z88.6 Allergy status to analgesic agent; Z91.040 Latex allergy status; Z91.048 Other nonmedicinal substance allergy status
CPT/HCPCS: 96361; 93005; 85025; 80048; 36415; 80320; 85610; 82947; 80076; 80307 ×8; 85730; 84484; 83690; 83880; 70450; 71045; 96374; 99284; J7030; J2405

== ENCOUNTER 2022-05-19 13:44 | Emergency (ER) | payer OTHER ==
[2022-05-19] MEDS ORDERED: TETANUS & DIPHTHERIA TOX,ADULT 0.5 ML VIAL ONE (14:24)
--- NOTE | 2022-05-19 14:42 | ER ---
Nurse's Notes [facility] Name: Monie Dailey Age: 71 yrs Sex: Female : 1950 Arrival Date: 05/19/2022 Time: 13:46 Bed 10 Private MD: Diagnosis: Bitten by dog;Puncture wound without foreign body of right wrist Presentation: 05/19 13:57 Chief complaint: Patient states: "my dogs got in a fight in bed night before last and [facility] one of them bit me when i tried to separate them" Denies having their vaccines and admits they are her animals. Coronavirus screen: Vaccine status: Patient reports being unvaccinated. Client denies travel out of the [place] in the last 14 days. At this time, the client does not indicate any symptoms associated with coronavirus-19. Ebola Screen: Patient negative for fever greater than or equal to 101.5 degrees Fahrenheit, and additional compatible Ebola Virus Disease symptoms. Initial Sepsis Screen: Does the patient meet any 2 criteria? No. Patient's initial sepsis screen is negative. Does the patient have a suspected source of infection? No. Patient's initial sepsis screen is negative. Risk Assessment: Do you want to hurt yourself or someone else? Patient reports no desire to harm self or others. Onset of symptoms was May 17, 2022. 13:57 Method Of Arrival: Ambulatory [facility] 13:57 Acuity: MINGO [address] [facility] Triage Assessment: 14:00 Bite description: bite sustained to left wrist by a dog, animal information: is from [facility] animal, vaccination(s) is not up to date. General: Appears in no apparent distress. uncomfortable, Behavior is calm, cooperative, appropriate for age. Pain: Complains of pain in left wrist. Historical: - Allergies: 14:00 Aspirin; [facility] 14:00 Codeine; [facility] 14:00 Ibuprofen; [facility] 14:00 Latex, Natural Rubber; [facility] 14:00 PENICILLINS; [facility] 14:00 teramycin; [facility] 14:00 Iodine; [facility] - Home Meds: 14:00 amlodipine 5 mg tab 1 tab once daily [Active]; metoprolol tartrate 50 mg Oral tab [address] [facility] 2 times per day [Active]; montelukast 10 mg Oral tab 1 tab once daily [Active]; Protonix 40 mg Oral TbEC 1 tab once daily [Active]; Ritalin 10 mg Oral tab 1 tab 2 times per day [Active]; - PMHx: 14:00 breast cancer; Hypertension; narcolepsy; neuropathy; bh1 - Immunization history:: Adult Immunizations up to date, Last tetanus immunization: < 5 years ago. - Social history:: Smoking status: Patient denies any tobacco usage or history of. Screenin:14 Abuse screen: Denies threats or abuse. Denies injuries from another. Nutritional jg9 screening: No deficits noted. Tuberculosis screening: No symptoms or risk factors identified. Fall Risk None identified. Assessment: 14:39 Reassessment: No changes from previously documented assessment. Patient and/or family jg9 updated on plan of care and expected duration. Pain level reassessed. [place] animal control personal at bedside talking to patient. Derm: Skin multiple small puncture wounds to r lower forerm Skin is pink, warm \\T\\ dry. Vital Signs: 13:57 BP 148 / 77; Pulse 71; Resp 18; Temp 97.4(T); Pulse Ox 98% on R/A; Weight 88 kg; Height 1 5 ft. 4 in. (162.56 cm); Pain 0/10; 14:45 BP 130 / 71; Pulse 62; Resp 18 S; Pulse Ox 99% on R/A; jg9 13:57 Body Mass Index 33.30 (88.00 kg, 162.56 cm) [facility] ED Course: 13:46 Patient arrived in ED. as 13:48 Omid Vargas NP is PHCP. pm1 13:48 Bradford Strickland MD is Attending Physician. pm1 14:00 Triage completed. bh1 14:02 Arm band placed on left wrist. bh1 14:05 Yulia Gama, SUMANTH is Primary Nurse. jg9 14:13 Patient has correct armband on for positive identification. Bed in low position. Call jg9 light in reach. [place] [employer] dispatcher took report about dog bite and advised an officer will be coming up shortly. 14:54 Forearm Right XRAY In Process Unspecified. EDMS 15:00 No provider procedures requiring assistance completed. jg9 15:21 Chung Zuluaga MD is Referral Physician. 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 Exp: jg9 02/03/2024. Lot #: [id number]. } Route: IM; Site: right deltoid; 15:00 Follow up: Response: (VIS) Vaccine information sheet provided today. Questions and/or jg9 concerns addressed. VIS edition date: Jun 16, 2021.; No adverse reaction 14:49 Drug: Doxycycline 100 mg Route: PO; jg9 15:01 Follow up: Response: No adverse reaction; Medication administered at discharge. jg9 14:49 Drug: metroNIDAZOLE 500 mg Route: PO; jg9 15:01 Follow up: Response: No adverse reaction; Medication administered at discharge. jg9 Medication: 15:00 Vaccine Information Statement (VIS) provided today. Questions and/or concerns jg9 addressed. VIS edition date: May 19, 2022. Outcome: 14:42 Discharge ordered by . pm1 15:30 Patient left the ED. jg9 Signatures: Dispatcher [employer] EDShannan Du Patrick, LULI TOOLROOM CHECKER pm1 Yulia Gama, RN RN jg9 Dagmar Krause RN RN bh1
--- NOTE | 2022-05-19 14:43 | EDPHYS ---
Physician Documentation [facility] Name: Monie Dailey Age: 71 yrs Sex: Female : 1950 Arrival Date: 05/19/2022 Time: 13:46 Bed 10 Private MD: ED Physician Bradford Strickland HPI: 05/19 14:29 This 71 yrs old Female presents to ER via Ambulatory with complaints of Dog Bite. pm1 14:29 The patient was bitten on the right wrist, by a dog, Attempting to separate her dogs pm1 while they were fighting in the bed, at home. Onset: The symptoms/episode began/occurred yesterday. Animal information: The animal was reported to appear healthy. Animal's vaccinations are not up to date. Secondary to the bite the patient reports multiple puncture wounds. Associated signs and symptoms: Pertinent positives: swelling at site, Pertinent negatives: bony tenderness, suspected foreign body. Severity of symptoms: in the emergency department the symptoms are unchanged. The patient has not experienced similar symptoms in the past. The patient has not recently seen a physician. 71-year-old female presents to the ER with complaints of dog bite to her right wrist/forearm. Patient was sleeping in bed when her dogs started fighting. She attempted to separate them and one of her dogs bit her. Historical: - Allergies: 14:00 Aspirin; bh1 14:00 Codeine; bh1 14:00 Ibuprofen; bh1 14:00 Latex, Natural Rubber; bh1 14:00 PENICILLINS; bh1 14:00 teramycin; bh1 14:00 Iodine; bh1 - Home Meds: 14:00 amlodipine 5 mg tab 1 tab once daily [Active]; metoprolol tartrate 50 mg Oral tab 1 tab bh1 2 times per day [Active]; montelukast 10 mg Oral tab 1 tab once daily [Active]; Protonix 40 mg Oral TbEC 1 tab once daily [Active]; Ritalin 10 mg Oral tab 1 tab 2 times per day [Active]; - PMHx: 14:00 breast cancer; Hypertension; narcolepsy; neuropathy; bh1 - Immunization history:: Adult Immunizations up to date, Last tetanus immunization: < 5 years ago. - Social history:: Smoking status: Patient denies any tobacco usage or history of. ROS: 14:29 Constitutional: Negative for fever, chills, and weight loss, Cardiovascular: Negative pm1 for chest pain, palpitations, and edema, Respiratory: Negative for shortness of breath, cough, wheezing, and pleuritic chest pain. 14:29 Skin: Negative for injury, rash, and discoloration, Neuro: Negative for headache, weakness, numbness, tingling, and seizure. 14:29 MS/extremity: Positive for puncture, of the right wrist, Negative for decreased range of motion, deformity. 14:29 All other systems are negative. Exam: 14:29 Constitutional: This is a well developed, well nourished patient who is awake, alert, pm1 and in no acute distress. Head/Face: Normocephalic, atraumatic. 14:29 Cardiovascular: Exam negative for acute changes, Rate: normal, Rhythm: regular, Pulses: no pulse deficits are appreciated. 14:29 Respiratory: Exam negative for acute changes, respiratory distress, shortness of breath. 14:29 Musculoskeletal/extremity: Extremities: grossly normal except: noted in the right wrist, ventral side: puncture, There is no evidence of decreased ROM, deformity, ROM: intact in all extremities, Circulation is intact in all extremities. Sensation intact. 14:29 Skin: Appearance: normal except for affected area, injury, puncture(s), that are superficial, of the right wrist, Two superficial puncture wounds. 14:29 Neuro: Exam negative for acute changes, Orientation: is normal, Mentation: is normal, Motor: moves all fours. Vital Signs: 13:57 BP 148 / 77; Pulse 71; Resp 18; Temp 97.4(T); Pulse Ox 98% on R/A; Weight 88 kg; Height bh1 5 ft. 4 in. (162.56 cm); Pain 0/10; 14:45 BP 130 / 71; Pulse 62; Resp 18 S; Pulse Ox 99% on R/A; jg9 13:57 Body Mass Index 33.30 (88.00 kg, 162.56 cm) bh1 MDM: 14:07 Patient medically screened. pm1 14:33 Data reviewed: vital signs. Data interpreted: Pulse oximetry: on room air is 98 %. pm1 Interpretation: normal. 14:36 ED course: X-ray negative for foreign body, dislocation, fracture. pm1 14:41 Counseling: I had a detailed discussion with the patient and/or guardian regarding: the pm1 historical points, exam findings, and any diagnostic results supporting the discharge/admit diagnosis, radiology results, the need for outpatient follow up, to return to the emergency department if symptoms worsen or persist or if there are any questions or concerns that arise at home. 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 Exp: jg9 02/03/2024. Lot #: [id number]. } Route: IM; Site: right deltoid; 15:00 Follow up: Response: (VIS) Vaccine information sheet provided today. Questions and/or jg9 concerns addressed. VIS edition date: Jun 16, 2021.; No adverse reaction 14:49 Drug: Doxycycline 100 mg Route: PO; jg9 15:01 Follow up: Response: No adverse reaction; Medication administered at discharge. jg9 14:49 Drug: metroNIDAZOLE 500 mg Route: PO; jg9 15:01 Follow up: Response: No adverse reaction; Medication administered at discharge. jg9 Disposition: 18:02 Co-signature as Attending Physician, Bradford Strickland MD. rn Disposition Summary: 05/19/22 14:42 Discharge Ordered Location: Home pm1 Problem: new pm1 Symptoms: have improved pm1 Condition: Stable pm1 Diagnosis - Bitten by dog pm1 - Puncture wound without foreign body of right wrist pm1 Followup: pm1 - With: Emergency Department - When: As needed - Reason: Worsening of condition Followup: pm1 - With: Private Physician - When: 2 - 3 days - Reason: Recheck today's complaints, Continuance of care, Re-evaluation by your physician Followup: pm1 - With: Chung Zuluaga MD - When: 2 - 3 days - Reason: Recheck today's complaints, Continuance of care, Re-evaluation by your physician Discharge Instructions: - Discharge Summary Sheet pm1 - Puncture Wound pm1 - Animal Bite, Adult pm1 Forms: - Medication Reconciliation Form pm1 - Thank You Letter pm1 - Antibiotic Education pm1 - Prescription Opioid Use pm1 Prescriptions: - Flagyl 500 mg Oral Tablet - take 1 tablet by ORAL route every 8 hours for 10 days; 30 tablet; Refills: 0, pm1 Product Selection Permitted - Doxycycline Hyclate 100 mg Oral Tablet - take 1 tablet by ORAL route every 12 hours; 20 tablet; Refills: 0, Product pm1 Selection Permitted Signatures: Dispatcher [employer] Bradford Nicole MD MD rn Marinas, Patrick, NP CHEMICAL TREATMENT OPERATOR pm1 Yulia Gama RN RN jg9 Dagmar Krause RN RN bh1
[2022-05-19] MEDS ORDERED: metroNIDAZOLE 500 MG TABLET ONE (14:50)
[2022-05-19] MEDS ORDERED: DOXYCYCLINE 100 MG CAP PO ONE (14:50)
--- NOTE | 2022-05-19 15:00 | RAD REPORT ---
EXAM DESCRIPTION: RAD - Forearm Right - 05/19/2022 2:52 pm CLINICAL HISTORY: Right arm pain status post dog bite FINDINGS: No fracture is seen. A radiopaque foreign body is not seen
[2022-05-19 15:37] VITALS: TEMP 97.4
[2022-05-19 15:39] VITALS: BP 130/71; O2SAT 99
== END 2022-05-19 15:30 | disposition home or self-care (01) ==
LOC: ER 13:44
DX: S61.531A Puncture wound without foreign body of right wrist, initial encounter (principal); W54.0XXA Bitten by dog, initial encounter; Z23 Encounter for immunization; I10 Essential (primary) hypertension; Z88.0 Allergy status to penicillin; Z88.3 Allergy status to other anti-infective agents; Z88.5 Allergy status to narcotic agent; Z88.6 Allergy status to analgesic agent; Z88.8 Allergy status to other drugs, medicaments and biological substances; Z91.040 Latex allergy status; Z91.048 Other nonmedicinal substance allergy status
CPT/HCPCS: 90471; 90714; 99283

== ENCOUNTER 2023-07-15 08:49 | Emergency (ER) | payer MEDICARE, OTHER ==
--- OUTSIDE RECORDS SUMMARY | 2023-07-15 08:55 | XMS REPORT | Continuity of Care Document ---
:1950 Author Organization [facility] t Address [address] [place] [address] Care Team Providers Name Role Phone Asha Burrows DO Primary Care Physician Mariel Hidalgo Attending Clinician Unavailable Asha Burrows Attending Clinician Unavailable CARTER NAGY Attending Clinician Unavailable CARTER NAGY Attending Clinician Unavailable Doctor Unassigned, [place] Attending Clinician Unavailable Jyoti Chan MA Attending Clinician Unavailable Team, [facility] Health Maintenance Attending Clinician UnavailGRACIE Ibarra Attending Clinician Unavailable Gracie Krueger MD Attending Clinician Ronaldo_S_AH Attending Clinician Unavailable Harjinder-Mbayo_A_AH Attending Clinician Unavailable GRACIE KRUEGER Admitting Clinician Unavailable Ronaldo_S_AH Admitting Clinician Unavailable Harjinder-Mbayo_A_AH Admitting Clinician Unavailable Payers Payer Name Policy Type Policy Number Effective Date Expiration Date S adi [facility] [id number] 2020 [facility] 00:00:00 [employer] DZJEAF 2023 (MEDICARE 00:00:00 REPLACEMENT HMO) [employer] MEDICARE 53 [id number] 2020 Common 00:00:00 [facility] [place] OF [place] - [id number] 2019 [place] 00:00:00 (MEDICARE REPLACEMENT/ADVAN TAGE - HMO) Problems Condition Condition Condition Status Onset Resolution Last Treating Co mments Source Name Details Category Date Date Treatment Clinician Date Pap smear Pap smear Disease Active Uni vers of cervix of cervix 5-30 [place] of not needed [place] [facility] [place] Attention Attention Disease Active Uni vers and and 5- [place]y of concentrat concentrat [place] Medical deficit deficit Branch Cataplexy Cataplexy Disease Active Uni vers and and 5-23 ity of narcolepsy narcolepsy 00:[place]: [place] [facility] [place] Cervicalgi Cervicalgi Disease Active U nivers a a 5- ity of 00:00: Medical Branch Chronic Chronic Disease Active Univers pain pain 5-23 ity of 00:00: Medical Branch Degenerati Degenerati Disease Active U nivers on of on of 5-23 ity of cervical cervical 00:00: [place] interverte interverte 00 Me dical bral disc bral disc Bran ch Diverticul Diverticul Disease Active U nivers osis of osis of 5-23 ity of colon colon 00:00: Medical Branch Dizziness Dizziness Disease Active Uni vers 5-23 ity of 00:00: Medical Branch Fatigue Fatigue Disease Active Univers 5-23 ity of 00:00: Medical Branch Hearing Hearing Disease Active Univers loss loss 5-23 ity of 00:00: [place] [facility] History of History of Disease Active 0 U nivers colonic colonic 5-23 ity of polyps polyps 00:00: [place] [facility] Hyperlipid Hyperlipid Disease Active U nivers emia emia 5-23 ity of 00:00: Medical Branch Lipoma Lipoma Disease Active Univers 5-23 ity of 00:00: [place] 00 Medical Branch Liver cyst Liver cyst Disease Active U nivers 5-23 ity of 00:00: Medical Branch Mass of Mass of Disease Active Univers right right 5- ity of adrenal adrenal 00:00: [place] gland gland 00 Medical Branch Mild Mild Disease Active Univers memory memory 5-23 ity of disturbanc disturbanc 00:[place] [facility] Neuropathi Neuropathi Disease Active U nivers c pain c pain - ity of 00:00: [place] [facility] Osteoarthr Osteoarthr Disease Active U nivers osis osis - ity of 00:00: [place] [facility] Sciatica Sciatica Disease Active Unive rs 5- ity of 00:00: [place] [facility] Nodule of Nodule of Disease Active Uni vers lower lobe lower lobe 5- it y of of left of left 00:00: [place] lung lung 00 Medical Branch Thinning Thinning Disease Active Unive rs hair hair - ity of 00:00: [place] [facility] Varicose Varicose Disease Active Unive rs veins veins 5-23 ity of 00:00: [place] [facility] Varicose Varicose Disease Active Unive rs veins of veins of 5-23 ity of both lower both lower 00:[place] extremitie extremitie 00 Me dical s s Branch Diaphragma Diaphragma Disease Active U nivers tic hernia tic hernia - it y of 00:00: [place] [facility] Screening Screening Disease Active Uni vers breast breast 3- ity of examinatio examinatio 00:[place] [facility] Vaginal Vaginal Disease Active Univers discharge discharge 3- ity of 00:00: [place] [facility] BMI BMI Disease Active Univers 31.0-31.9, 31.0-31.9, 3-09 it y of adult adult 00:00: [place] [facility] Postmenopa Postmenopa Disease Active U nivers usal usal 3-09 ity of bleeding bleeding 00:00: [place] 00 Medical Branch Ingrown Ingrown Disease Active Univers hair hair 3- ity of 00:: [facility] Branch Personal Personal Disease Active Unive rs history of history of 01-17 it y of breast breast 00:00: [place] cancer cancer Medical Branch Pain Pain Disease Active Univers pelvic pelvic 3- ity of 00:: [place] [facility] Senile Senile Disease Active 2019-11 Univers purpura purpura 2-21 ity of 00:: [place] [facility] Recurrent Recurrent Disease Active 2019-11 Uni vers falls falls 1-16 ity of 00:: [place] [facility] Seasonal Seasonal Disease Active Unive rs allergic allergic 01-17 ity of rhinitis rhinitis 00:: [place] [facility] Solitary Nodule of Problem Comm on pulmonary lower lobe Spi rit nodule of left - CHI lung [facility] Narcolepsy Narcolepsy Problem C ommon [facility] Ventral Ventral Problem Common hernia hernia [facility] Headache Headache Problem Commo n Spirit [facility] [id number] Lumbago Problem Commo n with Spirit sciatica, - CHI unspecifie [facility] Allergic Allergic Problem Commo n rhinitis rhinitis [facility] [id number] Gastro-eso Problem Co mmon phageal Spirit reflux - CHI disease [facility] esophagiti Medica l s [place] Degenerati Degenerati Problem C ommon on of on of Spirit lumbar lumbar or - CHI interverte lumbosacra [facility] disc [facility] interverte [facility] [place] [id number] Varicose Problem Commo n veins of Spirit both legs - CHI with edema [facility] [id number] Bilateral Problem Comm on hearing Spirit loss, - CHI unspecifie [facility] hearing [facility] loss type Medical Center [id number] Osteoarthr Problem Co mmon itis of Spirit multiple - CHI joints, St unspecifie [facility] osteoarthr Center itis type [id number] Primary Problem Commo n osteoarthr Spirit itis of - CHI both knees [facility] Essential Benign Problem Common hypertensi essential Spi rit on HTN - CHI [facility] Gastroesop GERD Problem Commo n hageal (gastroeso Spirit reflux phageal - CHI disease reflux St disease) [facility] [id number] Primary Problem Comm on osteoarthr Spirit itis of - CHI right knee [facility] [id number] Primary Problem Comm on osteoarthr Spirit itis of - CHI left knee [facility] Allergies, Adverse Reactions, Alerts Allergy Allergy Status Severity Reaction(s) Onset Inactive Treating Comm ents Source Name Type Date Date Clinician IBUPROFE DRUG Active Unknown-Cmnt 2021-11 Un [facility]a N INGREDI 0-31 ity of 00:00: 00 Medical Branch SIMVASTA DRUG Active Unknown-Cmnt 2021-11 Un ela TIN INGREDI 0-31 ity of 00:00: Medical Branch Ibuprofe Drug Active Unknown - 2021-11 Unive rs n Allergy See comments 0- ity of 00:00: Medical Branch Simvasta Drug Active Unknown - 2021-11 Unive rs tin Allergy See comments 0 ity of 00:00: Medical Branch Gabapent Drug Active Unknown - Unive rs in Allergy See comments 3 ity of 00:00: 00 Medical Branch GABAPENT DRUG Active Unknown-Cmnt Un ela IN INGREDI 3-09 ity of 00:00: 00 Medical Branch Iodine Propensi Active Unknown - Unive rs ty to See comments 8-15 ity of adverse 00:00: [place] reaction 00 Medical s Branch Oxytetra Propensi Active Unknown - Uni vers cycline ty to See comments 8-15 ity of adverse 00:00: [place] reaction 00 Medical s Branch IODINE DRUG Active Unknown-Cmnt Univ ers INGREDI 8-15 ity of 00:00: [place] 00 Medical Branch LATEX DRUG Active Unknown-Cmnt Univ ers INGREDI 8-15 ity of 00:00: 00 Medical Branch OXYTETRA DRUG Active Unknown-Cmnt Un ela CYCLINE INGREDI 8-15 ity of 00:00: [place] 00 Medical Branch Aspirin Propensi Active Methodi ty to 8-15 st adverse 00:00: Hospita reaction 00 l s to drug Codeine Propensi Active Methodi ty to 8-15 st adverse 00:00: Hospita reaction 00 l s to drug Ibuprofe Propensi Active Method i n ty to 815 st adverse 00:00: Hospita reaction 00 l s to drug Iodine Propensi Active Methodi ty to 8[facility] st adverse 00:00: Hospita reaction 00 l s to drug Latex Propensi Active Methodi ty to 8[facility] st adverse 00:00: Hospita reaction 00 l s to drug Terramyc Propensi Active Method i in ty to 15 st adverse 00:00: Hospita reaction 00 l s to drug Aspirin Propensi Active Other - See Hearing U nivers ty to comments 12-20 loss, ity of adverse 00:00: weakness [place] reaction Medical s to Branch drug Codeine Propensi Active Rash Univers ty to 12-20 ity of adverse 00:00: [place] reaction Medical s to Branch drug Meperidi Drug Active Nausea Univers ne Hcl Intolera and/or 12-20 ity of nce Vomiting 00:00: [place] 00 Medical Branch Penicill Propensi Active Rash Univer s ins ty to 12-20 ity of adverse 00:00: [place] reaction 00 Medical s to Branch drug ASPIRIN DRUG Active Other-Cmnt Unive rs INGREDI 12-20 ity of 00:00: [place] 00 Medical Branch CODEINE DRUG Active ITCHING Univers INGREDI 12-20 ity of 00:00: [place] 00 Medical Branch MEPERIDI DRUG Active N/V Univers NE HCL INGREDI 12-20 ity of 00:00: [place] 00 Medical Branch PENICILL Drug Active Rash Univers INS Class 12-20 ity of 00:00: [place] 00 Medical Branch Penicill Propensi Active Rash Univer s ins ty to 12-20 ity of adverse 00:00: [place] reaction 00 Medical s to Branch drug Codeine Codeine Active Unknown [facility] aspirin aspirin Active Unknown [facility] Latex Latex Active Unknown [facility] Aspirin Allergy Active [facility] sub[facility]anc Practic e e Codeine Allergy Active [place] to Family substanc Practic e e Gabapent Allergy Active [place] in to Family substanc Practic e e PENICILL Allergy Active [place] INS to Family substanc Practic e e Family History Family Member Diagnosis Comments Start Date Stop Date Source Maternal Rheumatologic Christian grandmother disease [facility] Maternal [facility]oporosis [facility] Natural mother Oste[facility] Natural mother Rheumatologic [facility]i [facility] disease [facility] Paternal aunt Cancer [facility] Natural sister Cancer [facility] Natural father Cancer [facility] Social History Social Habit Start Date Stop Date Quantity Comments Source History of Tobacco Common Spirit - Use [facility] Gender identity [facility] Tobacco use and 2023-04-09 2023-04-09 Smokeless Universit y of exposure 00:00:00 00:00:00 tobacco non-user [facility] Cigarettes smoked 2017-11-01 2017-11-[address] current (pack per 00:00:00 00:00:00 [facility] l day) - Reported Cigarette 2017-11-01 2017-11-01 Christian pack-years 00:00:00 00:00:00 Hospital Alcohol intake 2017-11-01 2017-11-01 Current drinker [facility] 00:00:00 00:00:00 of alcohol Hospital (finding) History of Social 2017-11-01 2017-11-[address] function 00:00:00 00:00:00 Hospital Tobacco Comment 2017-04-09 2017-04-09 Been 40 years Method ist 00:00:00 00:00:00 since I have Hospital smoked Alcohol Comment 2017-04-09 2017-04-09 Drink nightly Method ist 00:00:00 00:00:00 for [facility] Sex Ass[birth year] At [birth year] Christian 00:00:00 00:00:00 Hospital Smoking Status Start Date Stop Date Source Never smoked tobacco [facility] Former Smoker 2022-09-10 00:00:00 2022-09-10 00:00:00 Common S pirit - [facility] nter Medications Ordered Filled Start Stop Current Ordering Indication Dosage Frequency Signature Comments Components Source Medication Medication Date Date Medication? Clinician (SIG) Name Name methylpheni Yes 3 tablets U nivers date HCl 10 5-30 ity of mg tablet 11:12: [place] [id number] Medical Branch vit Yes as Univers C/E/Zn/shahid 5-30 directed ity of r/lutein/ze 11:12: [place] [facility] (PRESERVISI Branch ON AREDS-2 ORAL) methylpheni 2022-0 Yes 3 tablets U nivers date HCl 10 5-30 ity of mg tablet 11:12: [place] [facility] vit 2022-0 Yes as Univers C/E/Zn/shahid 5-30 directed ity of r/lutein/ze 11:12: [facility] 02 Medical (PRESERVISI Branch ON AREDS-2 ORAL) methylpheni 2022-0 Yes 3 tablets U nivers date HCl 10 5-23 ity of mg tablet 09:43: [address] vit 2022-0 Yes as Univers C/E/Zn/shahid 5-23 directed ity of r/lutein/ze 09:43: [facility] Medical (PRESERVISI Branch ON AREDS-2 ORAL) estradioL 2021-0 Yes [id number] 2g Insert 2 g Univers 0.01 % (0.1 4-12 into ity of mg/gram) 00:00: vagina at [facility] 00 bedtime. Medical cream Every Branch night for 2 weeks, every other night for 2 weeks, then once weekly estradioL 2021-0 Yes [id number] 2g Insert 2 g Univers 0.01 % (0.1 4-12 into ity of mg/gram) 00:00: vagina at [facility] 00 bedtime. Medical cream Every Branch night for 2 weeks, every other night for 2 weeks, then once weekly estradioL 2021-0 Yes [id number] 2g Insert 2 g Univers 0.01 % (0.1 4-12 into ity of mg/gram) 00:00: vagina at [facility] 00 bedtime. Medical cream Every Branch night for 2 weeks, every other night for 2 weeks, then once weekly estradioL 2021-0 Yes [id number] 2g Insert 2 g Univers 0.01 % (0.1 4-12 into ity of mg/gram) 00:00: vagina at [facility] 00 bedtime. Medical cream Every Branch night for 2 weeks, every other night for 2 weeks, then once weekly estradioL 2021-0 Yes [id number] 2g Insert 2 g Univers 0.01 % (0.1 4-12 into ity of mg/gram) 00:00: vagina at [facility] 00 bedtime. Medical cream Every Branch night for 2 weeks, every other night for 2 weeks, then once weekly estradioL 2022-0 Yes [id number] 2g Insert 2 g Univers 0.01 % (0.1 4-12 into ity of mg/gram) 00:[facility]: [facility] [place] [facility] bed[facility]. Medical cream Every Branch night for 2 weeks, every other night for 2 weeks, then once weekly estradioL 2-0 Yes [id number] 2g Insert 2 g Univers 0.01 % (0.1 4-12 into ity of mg/gram) 00:00: vagina at [facility] vaginal 00 bedtime. Medical cream Every Branch night for 2 weeks, every other night for 2 weeks, then once weekly estradioL 2022-0 Yes [id number] 2g Insert 2 g Univers 0.01 % (0.1 4-12 into ity of mg/gram) 00:00: vagina at [facility] vaginal 00 bedtime. Medical cream Every Branch night for 2 weeks, every other night for 2 weeks, then once weekly fluticasone 2021-0 Yes 2{spray Use 2 Un ela (FLONASE) 3-09 } Sprays in ity o f 50 14:01: each [place] mcg/Actuati 13 nostril Medic al on nasal daily. Branch spray fluticasone 2021-0 Yes 2{spray Use 2 Un ela (FLONASE) 3-09 } Sprays in ity o f 50 14:01: each [place] mcg/Actuati 13 nostril Medic al on nasal daily. Branch spray fluticasone 2021-0 Yes 2{spray Use 2 Un ela (FLONASE) 3-09 } Sprays in ity o f 50 14:01: each [place] mcg/Actuati 13 nostril Medic al on nasal daily. Branch spray fluticasone 2021-0 Yes 2{spray Use 2 Un ela (FLONASE) 3-09 } Sprays in ity o f 50 14:01: each [place] mcg/Actuati 13 nostril Medic al on nasal daily. Branch spray fluticasone 2021-0 Yes 2{spray Use 2 Un ela (FLONASE) 3-09 } Sprays in ity o f 50 14:01: each [place] mcg/Actuati 13 nostril Medic al on nasal daily. Branch spray fluticasone 2021-0 Yes 2{spray Use 2 Un ela (FLONASE) 3-09 } Sprays in ity o f 50 14:01: each [place] mcg/Actuati 13 nostril Medic al on nasal daily. Branch spray fluticasone Yes 2{spray Use 2 Un ela (FLONASE) 3-09 } Sprays in ity o f 50 14:01: each [place] mcg/Actuati 13 nostril Medic al on nasal daily. Branch spray fluticasone Yes 2{spray Use 2 Un ela (FLONASE) 3-09 } Sprays in ity o f 50 14:01: each [place] mcg/Actuati 13 nostril Medic al on nasal daily. Branch spray metoprolol Yes metoprolol U nivers tartrate 50 3-09 tartrate ity of mg tablet 13:51: 50 mg [place] [address] tablet [facility] montelukast Yes montelukas Univers 10 mg 3-09 t 10 mg ity of tablet 13:51: tablet [address] pantoprazol Yes pantoprazo Univers e 40 mg EC 3-09 le 40 mg ity o f tablet 13:51: tablet,[address] metoprolol Yes metoprolol U nivers tartrate 50 3-09 tartrate ity of mg tablet 13:51: 50 mg [place] [address] tablet [facility] montelukast Yes montelukas Univers 10 mg 3-09 t 10 mg ity of tablet 13:51: tablet [address] pantoprazol Yes pantoprazo Univers e 40 mg EC 3-09 le 40 mg ity o f tablet 13:51: tablet,[address] metoprolol Yes metoprolol U nivers tartrate 50 3-09 tartrate ity of mg tablet 13:51: 50 mg [place] [address] tablet [facility] montelukast Yes montelukas Univers 10 mg 3-09 t 10 mg ity of tablet 13:51: tablet [address] pantoprazol Yes pantoprazo Univers e 40 mg EC 3-09 le 40 mg ity o f tablet 13:51: tablet,[address] metoprolol Yes metoprolol U nivers tartrate 50 3-09 tartrate ity of mg tablet 13:51: 50 mg [place] [address] tablet [facility] montelukast Yes montelukas Univers 10 mg 3-09 t 10 mg ity of tablet 13:51: tablet [address] pantoprazol Yes pantoprazo Univers e 40 mg EC 3-09 le 40 mg ity o f tablet 13:51: tablet,[address] metoprolol Yes metoprolol U nivers tartrate 50 3-09 tartrate ity of mg tablet 13:51: 50 mg [place] [address] tablet [facility] montelukast Yes montelukas Univers 10 mg 3-09 t 10 mg ity of tablet 13:51: tablet [address] pantoprazol Yes pantoprazo Univers e 40 mg EC 3-09 le 40 mg ity o f tablet 13:51: tablet,[address] metoprolol Yes metoprolol U nivers tartrate 50 3-09 tartrate ity of mg tablet 13:51: 50 mg [place] [address] tablet [facility] montelukast Yes montelukas Univers 10 mg 3-09 t 10 mg ity of tablet 13:51: tablet [address] pantoprazol Yes pantoprazo Univers e 40 mg EC 3-09 le 40 mg ity o f tablet 13:51: tablet,[address] metoprolol Yes metoprolol U nivers tartrate 50 3-09 tartrate ity of mg tablet 13:51: 50 mg [place] [address] tablet [facility] montelukast Yes montelukas Univers 10 mg 3-09 t 10 mg ity of tablet 13:51: tablet [address] pantoprazol Yes pantoprazo Univers e 40 mg EC 3-09 le 40 mg ity o f tablet 13:51: tablet,[address] metoprolol Yes metoprolol U nivers tartrate 50 3-09 tartrate ity of mg tablet 13:51: 50 mg [place] [address] tablet [facility] montelukast Yes montelukas Univers 10 mg 3-09 t 10 mg ity of tablet 13:51: tablet [place] 33 Medical Branch pantoprazol 0 Yes pantoprazo Univers e 40 mg EC 3 le 40 mg ity o f tablet 13:51: tablet,del [place] 33 ayed Medical [facility] Branch amLODIPine 0 Yes Univers 5 mg tablet 2-04 ity of 00:00: [place] [facility] amLODIPine 2021-0 Yes Univers 5 mg tablet 2-04 ity of 00:00: [place] [facility] amLODIPine 2021-0 Yes Univers 5 mg tablet 2-04 ity of 00:00: [place] [facility] amLODIPine 2021-0 Yes Univers 5 mg tablet 2-04 ity of 00:00: [place] [facility] amLODIPine 2021-0 Yes Univers 5 mg tablet 2-04 ity of 00:00: [place] [facility] amLODIPine 2021-0 Yes Univers 5 mg tablet 2-04 ity of 00:00: [place] [facility] amLODIPine 2021-0 Yes Univers 5 mg tablet 2-04 ity of 00:00: [place] [facility] amLODIPine 0 Yes Univers 5 mg tablet 2-04 ity of 00:00: [place] [facility] buPROPion 0 Yes Univers XL 150 mg 1-08 ity of 24 hr 00:00: [place] tablet Medical Branch buPROPion 0 Yes Univers XL 150 mg 1-08 ity of 24 hr 00:00: [place] tablet Medical Branch buPROPion 0 Yes Univers XL 150 mg 1-08 ity of 24 hr 00:00: [place] tablet Medical Branch buPROPion 0 Yes Univers XL 150 mg 1-08 ity of 24 hr 00:00: [place] tablet Medical Branch buPROPion 2021-0 Yes Univers XL 150 mg 1-08 ity of 24 hr 00:00: [place] tablet Medical Branch buPROPion 2021-0 Yes Univers XL 150 mg 1-08 ity of 24 hr 00:00: [place] tablet Medical Branch buPROPion 0 Yes Univers XL 150 mg 1-08 ity of 24 hr 00:00: [place] tablet Medical Branch buPROPion 2021-0 Yes Univers XL 150 mg 1-08 ity of 24 hr 00:00: [place] tablet 00 Medical Branch Metoprolol Metoprolol 2020-0 Yes Na Burrows 1 tablet Common Tartrate Tartrate 8-17 with food Sp kavon 00:00: - [facility] 00 [facility] Metoprolol Metoprolol 2019- Yes Na Burrows 1 tablet Common Tartrate Tartrate 1-19 with food Sp kavon 00:00: - [facility]I 00 [facility] pantoprazol 2017-0 Yes 40mg QD Take 40 mg Methodi e 8-[address] (PROTONIX) 11:05: daily. Hospi ta 40 MG EC 14 l tablet naproxen 2017-0 Yes Take by Method i sodium 8-[address] (ALEVE) 220 11:05: Hospit a mg capsule 14 l gabapentin 2017-0 Yes 300mg QD Take 300 Me [facility]odi (NEURONTIN) 8-[address] 300 mg 11:05: mouth Hospita capsule 14 daily. l DM/P-EPHED/ 2017-0 Yes Take by Met hodi ACETAMINOPH 8-[address] /DOXYLAM 11:05: Hospita (NYQUIL D 14 l ORAL) pantoprazol 2017-0 Yes 40mg QD Take 40 mg Methodi e 8-[address] (PROTONIX) 11:05: daily. Hospi ta 40 MG EC 14 l tablet naproxen 2017-0 Yes Take by Method i sodium 8-[address] (ALEVE) 220 11:05: Hospit a mg capsule 14 l gabapentin 2017-0 Yes 300mg QD Take 300 Me thodi (NEURONTIN) 8-[address] 300 mg 11:05: mouth Hospita capsule 14 daily. l DM/P-EPHED/ 2017-0 Yes Take by Met hodi ACETAMINOPH 8-[address] /DOXYLAM 11:05: Hospita (NYQUIL D 14 l ORAL) pantoprazol 2017-0 Yes 40mg QD Take 40 mg Methodi e 8-[address] (PROTONIX) 11:05: daily. Hospi ta 40 MG EC 14 l tablet naproxen 2017-0 Yes Take by Method i sodium 8-[address] (ALEVE) 220 11:05: Hospit a mg capsule 14 l gabapentin 2017-0 Yes 300mg QD Take 300 Me [facility]odi (NEURONTIN) 8-[address] 300 mg 11:05: mouth Hospita capsule 14 daily. l DM/P-EPHED/ 2016- Yes Take by Met hodi ACETAMINOPH 8-[address] /DOXYLAM 11:05: Hospita (NYQUIL D 14 l ORAL) pantoprazol Yes 40mg QD Take 40 mg Methodi e 8-[address] (PROTONIX) 11:05: daily. Hospi ta 40 MG EC 14 l tablet naproxen Yes Take by Method i sodium 8-[address] (ALEVE) 220 11:05: Hospit a mg capsule 14 l gabapentin Yes 300mg QD Take 300 Me thodi (NEURONTIN) 8-[address] 300 mg 11:05: mouth Hospita capsule 14 daily. l DM/P-EPHED/ Yes Take by Met hodi ACETAMINOPH 8-[address] /DOXYLAM 11:05: Hospita (NYQUIL D 14 l ORAL) methylpheni 2016- Yes Method i date ER 06-21 (METADATE 00:00: Hospita ER) 20 MG 00 l CR tablet methylpheni 2016-0 Yes Method i date 06-21 (RITALIN) 00:00: Hospita 10 MG 00 l tablet methylpheni 2016-0 Yes Method i date ER 8 (METADATE 00:00: Hospita ER) 20 MG 00 l CR tablet methylpheni 2016-0 Yes Method i date 06-21 (RITALIN) 00:00: Hospita 10 MG 00 l tablet methylpheni 2016-0 Yes Method i date ER 06-21 (METADATE 00:00: Hospita ER) 20 MG 00 l CR tablet methylpheni 2016-0 Yes Method i date 06-21 st (RITALIN) 00:00: Hospita 10 MG 00 l tablet methylpheni 2016-0 Yes Method i date ER 8- st (METADATE 00:00: Hospita ER) 20 MG 00 l CR tablet methylpheni 2016-0 Yes Method i date 06-21 st (RITALIN) 00:00: Hospita 10 MG 00 l tablet montelukast 2016-0 Yes Method i (SINGULAIR) 05-28 st 10 mg 00:00: Hospita tablet 00 l montelukast 2016-0 Yes Method i (SINGULAIR) 7-18 st 10 mg 00:00: Hospita tablet 00 l montelukast 0 Yes Method i (SINGULAIR) 7-18 st 10 mg 00:00: Hospita tablet 00 l montelukast 2016-0 Yes Method i (SINGULAIR) 7-18 st 10 mg 00:00: Hospita tablet 00 l amLODIPine 0 Yes [facility] ([facility] mg tablet 00:00: [facility] 00 l amLODIPine 2017-0 Yes [facility] ([facility] mg tablet 00:00: [facility]ospita 00 l amLODIPine 2017-0 Yes [facility] ([facility] mg tablet 00:00: [facility] 00 l amLODIPine 2017-0 Yes [facility] ([facility] mg tablet 00:00: [facility] 00 l meclizine 0 Yes [facility] (ANTIVERT[facility] 25 mg 00:00: [facility]ospita tablet 00 l meclizine 2016-0 Yes [facility] ([facility] 25 mg 00:00: [facility]osp[facility] tablet 00 l meclizine 0 Yes [facility] ([facility] 25 mg 00:00: Hospita tablet 00 l meclizine 2016-0 Yes [facility] ([facility] 25 mg 00:00: Hospita tablet 00 l methylpheni Yes 40mg Take 40 mg Univers 01-10 by mouth ity of (RITALIN) 00:00: daily. [place] 20 mg 00 Medical tablet Branch methylpheni Yes 40mg Take 40 mg Univers 01-10 by mouth ity of (RITALIN) 00:00: daily. [place] 20 mg 00 Medical tablet Branch methylpheni Yes 40mg Take 40 mg Univers date 01-10 by mouth ity of (RITALIN) 00:00: daily. [place] 20 mg 00 Medical tablet Branch methylpheni Yes 40mg Take 40 mg Univers date 01-10 by mouth ity of (RITALIN) 00:00: daily. [place] 20 mg 00 Medical tablet Branch methylpheni 3- No 40mg Take 40 mg Univers 01-10 by mouth ity of (RITALIN) 00:00: 00:00 daily. [place] 20 mg 00 :00 Medical tablet Branch methylpheni 2022- No 40mg Take 40 mg Univers date 01-10 by mouth ity of (RITALIN) 00:00: 00:00 daily. [place] 20 mg 00 :00 Medical tablet Branch amlodipine amlodipine No amlodipine [place] 5 mg tablet 5 mg tablet 5 mg F amily tablet Practic e cephalexin cephalexin No cephalexin [facility] 500 mg 500 mg 500 mg Family [...] release release release metoprolol metoprolol No metoprolol [facility] tartrate 25 tartrate 25 tartrate Family mg tablet mg tablet 25 mg Prac tic tablet e metoprolol metoprolol No metoprolol [facility] tartrate 50 tartrate 50 tartrate Family mg tablet mg tablet 50 mg Prac tic twice a day twice a day tablet e twice a day modafinil modafinil No modafinil [facility] 200 mg 200 mg 200 mg Family tablet tablet tablet Practic e montelukast montelukast No montelukas [facility] 10 mg 10 mg t 10 mg Family tablet tablet tablet Practic e pantoprazol pantoprazol No pantoprazo [place] e 40 mg e 40 mg le 40 mg Famil y tablet,lorraine tablet,lorraine tablet,del Practic yed release yed release ayed e release polymyxin B polymyxin B No polymyxin [facility] sulfate sulfate B sulfate Fami ly 10,000 10,000 10,000 Practic unit-trimet unit-trimet unit-trime e hoprim 1 hoprim 1 thoprim 1 mg/mL eye mg/mL eye mg/mL eye drops drops drops sulfamethox sulfamethox No sulfametho [place] azole 800 azole 800 xazole 800 Family mg-trimetho mg-trimetho mg-trimeth Practic prim 160 mg prim 160 mg oprim 160 e tablet tablet mg tablet Norvasc 5 Norvasc 5 No Norvasc 5 MG MG MG Naproxen Naproxen No Naproxen Singulair Singulair No 1{table QD Singulair 10 MG 10 MG t} 10 MG amLODIPine amLODIPine No 1{table QD amLODIPine Besylate 5 Besylate 5 t} Besylate 5 MG MG MG Meclizine Meclizine No 1{table QD Meclizine HCl 25 MG HCl 25 MG t_as_ne HCl 25 MG eded} Pantoprazol Pantoprazol No Pantoprazo e Sodium 40 e Sodium 40 le Sodium MG MG 40 MG Metoprolol Metoprolol No 1{table BID Metoprolol Tartrate 25 Tartrate 25 t_with_ Tartrate MG MG food} 25 MG Ritalin SR Ritalin SR No Ritalin SR Flonase 50 Flonase 50 No 1{spray QD Flonase 50 MCG/ACT MCG/ACT _in_eac MCG/ACT h_nostr il} Metoprolol Metoprolol No Metoprolol Tartrate 50 Tartrate 50 Tartrate MG MG 50 MG Naproxen Naproxen No Naproxen Norvasc 5 Norvasc 5 No Norvasc 5 MG MG MG Meclizine Meclizine No 1{table QD Meclizine HCl 25 MG HCl 25 MG t_as_ne HCl 25 MG eded} Flonase 50 Flonase 50 No 1{spray QD Flonase 50 MCG/ACT MCG/ACT _in_eac MCG/ACT h_nostr il} Pantoprazol Pantoprazol No 1{table QD Pantoprazo e Sodium 40 e Sodium 40 t} le Sodium MG MG 40 MG Metoprolol Metoprolol No 1{table BID Metoprolol Tartrate 25 Tartrate 25 t_with_ Tartrate MG MG food} 25 MG amLODIPine amLODIPine No 1{table QD amLODIPine Besylate 5 Besylate 5 t} Besylate 5 MG MG MG Singulair Singulair No 1{table QD [facility] 10 MG 10 MG t} 10 MG Ritalin SR Ritalin SR No Ritalin SR Metoprolol Metoprolol No 1{table BID Metoprolol Tartrate 50 Tartrate 50 t_with_ Tartrate MG MG food} 50 MG Naproxen Naproxen No Naproxen Norvasc 5 Norvasc 5 No Norvasc 5 MG MG MG Meclizine Meclizine No 1{table QD Meclizine HCl 25 MG HCl 25 MG t_as_ne HCl 25 MG eded} Flonase 50 Flonase 50 No 1{spray QD Flonase 50 MCG/ACT MCG/ACT _in_eac MCG/ACT h_nostr il} Pantoprazol Pantoprazol No 1{table QD Pantoprazo e Sodium 40 e Sodium 40 t} le Sodium MG MG 40 MG Metoprolol Metoprolol No 1{table BID Metoprolol Tartrate 25 Tartrate 25 t_with_ Tartrate MG MG food} 25 MG amLODIPine amLODIPine No 1{table QD amLODIPine Besylate 5 Besylate 5 t} Besylate 5 MG MG MG Singulair Singulair No 1{table QD Singulair 10 MG 10 MG t} 10 MG Ritalin SR Ritalin SR No Ritalin SR Metoprolol Metoprolol No 1{table BID Metoprolol Tartrate 50 Tartrate 50 t_with_ Tartrate MG MG food} 50 MG Naproxen Naproxen No Naproxen Norvasc 5 Norvasc 5 No Norvasc 5 MG MG MG Meclizine Meclizine No 1{table QD Meclizine HCl 25 MG HCl 25 MG t_as_ne HCl 25 MG eded} Flonase 50 Flonase 50 No 1{spray QD Flonase 50 MCG/ACT MCG/ACT _in_eac MCG/ACT h_nostr il} Pantoprazol Pantoprazol No 1{table QD Pantoprazo e Sodium 40 e Sodium 40 t} le Sodium MG MG 40 MG Metoprolol Metoprolol No 1{table BID Metoprolol Tartrate 25 Tartrate 25 t_with_ Tartrate MG MG food} 25 MG amLODIPine amLODIPine No 1{table QD amLODIPine Besylate 5 Besylate 5 t} Besylate 5 MG MG MG Singulair Singulair No 1{table QD Singulair 10 MG 10 MG t} 10 MG Ritalin SR Ritalin SR No Ritalin SR Metoprolol Metoprolol No 1{table BID Metoprolol Tartrate 50 Tartrate 50 t_with_ Tartrate MG MG food} 50 MG Naproxen Naproxen No Naproxen Norvasc 5 Norvasc 5 No Norvasc 5 MG MG MG Meclizine Meclizine No 1{table QD Meclizine HCl 25 MG HCl 25 MG t_as_ne HCl 25 MG eded} Flonase 50 Flonase 50 No 1{spray QD Flonase 50 MCG/ACT MCG/ACT _in_eac MCG/ACT h_nostr il} Pantoprazol Pantoprazol No 1{table QD Pantoprazo e Sodium 40 e Sodium 40 t} le Sodium MG MG 40 MG Metoprolol Metoprolol No 1{table BID Metoprolol Tartrate 25 Tartrate 25 t_with_ Tartrate MG MG food} 25 MG amLODIPine amLODIPine No 1{table QD amLODIPine Besylate 5 Besylate 5 t} Besylate 5 MG MG MG Singulair Singulair No 1{table QD [facility]ulair 10 MG 10 MG t} 10 MG Ritalin SR Ritalin SR No Ritalin SR Metoprolol Metoprolol No 1{table BID Metoprolol Tartrate 50 Tartrate 50 t_with_ Tartrate MG MG food} 50 MG Naproxen Naproxen No Naproxen Norvasc 5 Norvasc 5 No Norvasc 5 MG MG MG Meclizine Meclizine No 1{table QD Meclizine HCl 25 MG HCl 25 MG t_as_ne HCl 25 MG eded} Pantoprazol Pantoprazol No Pantoprazo e Sodium 40 e Sodium 40 le Sodium MG MG 40 MG Montelukast Montelukast No Montelukas Sodium 10 Sodium 10 t Sodium MG MG 10 MG Metoprolol Metoprolol No 1{table BID Metoprolol Tartrate 25 Tartrate 25 t_with_ Tartrate MG MG food} 25 MG Ritalin SR Ritalin SR No Ritalin SR Metoprolol Metoprolol No Metoprolol Tartrate 50 Tartrate 50 Tartrate MG MG 50 MG amLODIPine amLODIPine No amLODIPine Besylate 5 Besylate 5 Besylate 5 MG MG MG Flonase 50 Flonase 50 No 1{spray QD Flonase 50 MCG/ACT MCG/ACT _in_eac MCG/ACT h_nostr il} buPROPion buPROPion No 1{table QD buPROPion HCl ER (XL) HCl ER (XL) t_in_th HCl ER 150 MG 150 MG e_morni (XL) 150 ng} MG Metoprolol Metoprolol No 1{table BID Metoprolol Tartrate 50 Tartrate 50 t_with_ Tartrate MG MG food} 50 MG Montelukast Montelukast No 1{table QD Montelukas Sodium 10 Sodium 10 t} t Sodium MG MG 10 MG amLODIPine amLODIPine No 1{table QD amLODIPine Besylate 5 Besylate 5 t} Besylate 5 MG MG MG Metoprolol Metoprolol No 1{table BID Metoprolol Tartrate 50 Tartrate 50 t_with_ Tartrate MG MG food} 50 MG Pantoprazol Pantoprazol No Pantoprazo e Sodium 40 e Sodium 40 le Sodium MG MG 40 MG amLODIPine amLODIPine No 1{table QD amLODIPine Besylate 5 Besylate 5 t} Besylate 5 MG MG MG Methylpheni Methylpheni No 3{table QD Methylphen date HCl 10 date HCl 10 ts} idate HCl MG MG 10 MG PreserVisio PreserVisio No PreserVisi n AREDS 2 - n AREDS 2 - on AREDS 2 - Pantoprazol Pantoprazol No 1{table QD Pantoprazo e Sodium 40 e Sodium 40 t} le Sodium MG MG 40 MG buPROPion buPROPion No 1{table QD buPROPion HCl ER (XL) HCl ER (XL) t_in_th HCl ER 150 MG 150 MG e_morni (XL) 150 ng} MG Metoprolol Metoprolol No 1{table BID Metoprolol Tartrate 50 Tartrate 50 t_with_ Tartrate MG MG food} 50 MG Montelukast Montelukast No 1{table QD Montelukas Sodium 10 Sodium 10 t} t Sodium MG MG 10 MG amLODIPine amLODIPine No 1{table QD amLODIPine Besylate 5 Besylate 5 t} Besylate 5 MG MG MG Metoprolol Metoprolol No 1{table BID Metoprolol Tartrate 50 Tartrate 50 t_with_ Tartrate MG MG food} 50 MG Pantoprazol Pantoprazol No Pantoprazo e Sodium 40 e Sodium 40 le Sodium MG MG 40 MG amLODIPine amLODIPine No 1{table QD amLODIPine Besylate 5 Besylate 5 t} Besylate 5 MG MG MG Methylpheni Methylpheni No 3{table QD Methylphen date HCl 10 date HCl 10 ts} idate HCl MG MG 10 MG PreserVisio PreserVisio No PreserVisi n AREDS 2 - n AREDS 2 - on AREDS 2 - Pantoprazol Pantoprazol No 1{table QD Pantoprazo e Sodium 40 e Sodium 40 t} le Sodium MG MG 40 MG buPROPion buPROPion No 1{table QD buPROPion HCl ER (XL) HCl ER (XL) t_in_th HCl ER 150 MG 150 MG e_morni (XL) 150 ng} MG Metoprolol Metoprolol No 1{table BID Metoprolol Tartrate 50 Tartrate 50 t_with_ Tartrate MG MG food} 50 MG Montelukast Montelukast No 1{table QD Montelukas Sodium 10 Sodium 10 t} t Sodium MG MG 10 MG amLODIPine amLODIPine No 1{table QD amLODIPine Besylate 5 Besylate 5 t} Besylate 5 MG MG MG Metoprolol Metoprolol No 1{table BID Metoprolol Tartrate 50 Tartrate 50 t_with_ Tartrate MG MG food} 50 MG Pantoprazol Pantoprazol No Pantoprazo e Sodium 40 e Sodium 40 le Sodium MG MG 40 MG amLODIPine amLODIPine No 1{table QD amLODIPine Besylate 5 Besylate 5 t} Besylate 5 MG MG MG Methylpheni Methylpheni No 3{table QD Methylphen date HCl 10 date HCl 10 ts} idate HCl MG MG 10 MG PreserVisio PreserVisio No PreserVisi n AREDS 2 - n AREDS 2 - on AREDS 2 - Pantoprazol Pantoprazol No 1{table QD Pantoprazo e Sodium 40 e Sodium 40 t} le Sodium MG MG 40 MG Montelukast Montelukast No Montelukas Sodium 10 Sodium 10 t Sodium MG MG 10 MG PreserVisio PreserVisio No PreserVisi n AREDS 2 - n AREDS 2 - on AREDS 2 - buPROPion buPROPion No 1{table QD buPROPion HCl ER (XL) HCl ER (XL) t_in_th HCl ER 150 MG 150 MG e_morni (XL) 150 ng} MG amLODIPine amLODIPine No amLODIPine Besylate 5 Besylate 5 Besylate 5 MG MG MG Pantoprazol Pantoprazol No Pantoprazo e Sodium 40 e Sodium 40 le Sodium MG MG 40 MG Metoprolol Metoprolol No Metoprolol Tartrate 50 Tartrate 50 Tartrate MG MG 50 MG Methylpheni Methylpheni No 3{table QD Methylphen date HCl 10 date HCl 10 ts} idate HCl MG MG 10 MG Montelukast Montelukast No Montelukas Sodium 10 Sodium 10 t Sodium MG MG 10 MG PreserVisio PreserVisio No PreserVisi n AREDS 2 - n AREDS 2 - on AREDS 2 - buPROPion buPROPion No 1{table QD buPROPion HCl ER (XL) HCl ER (XL) t_in_th HCl ER 150 MG 150 MG e_morni (XL) 150 ng} MG amLODIPine amLODIPine No amLODIPine Besylate 5 Besylate 5 Besylate 5 MG MG MG Pantoprazol Pantoprazol No Pantoprazo e Sodium 40 e Sodium 40 le Sodium MG MG 40 MG Metoprolol Metoprolol No Metoprolol Tartrate 50 Tartrate 50 Tartrate MG MG 50 MG Methylpheni Methylpheni No 3{table QD Methylphen date HCl 10 date HCl 10 ts} idate HCl MG MG 10 MG Metoprolol Metoprolol No Metoprolol Tartrate 50 Tartrate 50 Tartrate MG MG 50 MG PreserVisio PreserVisio No PreserVisi n AREDS 2 - n AREDS 2 - on AREDS 2 - Montelukast Montelukast No Montelukas Sodium 10 Sodium 10 t Sodium MG MG 10 MG Pantoprazol Pantoprazol No Pantoprazo e Sodium 40 e Sodium 40 le Sodium MG MG 40 MG amLODIPine amLODIPine No amLODIPine Besylate 5 Besylate 5 Besylate 5 MG MG MG buPROPion buPROPion No 1{table QD buPROPion HCl ER (XL) HCl ER (XL) t_in_th HCl ER 150 MG 150 MG e_morni (XL) 150 ng} MG Methylpheni Methylpheni No 3{table QD Methylphen date HCl 10 date HCl 10 ts} idate HCl MG MG 10 MG Metoprolol Metoprolol No Metoprolol Tartrate 50 Tartrate 50 Tartrate MG MG 50 MG PreserVisio PreserVisio No PreserVisi n AREDS 2 - n AREDS 2 - on AREDS 2 - Montelukast Montelukast No Montelukas Sodium 10 Sodium 10 t Sodium MG MG 10 MG Pantoprazol Pantoprazol No Pantoprazo e Sodium 40 e Sodium 40 le Sodium MG MG 40 MG amLODIPine amLODIPine No amLODIPine Besylate 5 Besylate 5 Besylate 5 MG MG MG buPROPion buPROPion No 1{table QD buPROPion HCl ER (XL) HCl ER (XL) t_in_th HCl ER 150 MG 150 MG e_morni (XL) 150 ng} MG Methylpheni Methylpheni No 3{table QD Methylphen date HCl 10 date HCl 10 ts} idate HCl MG MG 10 MG Metoprolol Metoprolol No Metoprolol Tartrate 50 Tartrate 50 Tartrate MG MG 50 MG PreserVisio PreserVisio No PreserVisi n AREDS 2 - n AREDS 2 - on AREDS 2 - Montelukast Montelukast No Montelukas Sodium 10 Sodium 10 t Sodium MG MG 10 MG Pantoprazol Pantoprazol No Pantoprazo e Sodium 40 e Sodium 40 le Sodium MG MG 40 MG amLODIPine amLODIPine No amLODIPine Besylate 5 Besylate 5 Besylate 5 MG MG MG buPROPion buPROPion No 1{table QD buPROPion HCl ER (XL) HCl ER (XL) t_in_th HCl ER 150 MG 150 MG e_morni (XL) 150 ng} MG Methylpheni Methylpheni No 3{table QD Methylphen date HCl 10 date HCl 10 ts} idate HCl MG MG 10 MG amLODIPine amLODIPine No 1{table QD amLODIPine Besylate 5 Besylate 5 t} Besylate 5 MG MG MG PreserVisio PreserVisio No PreserVisi n AREDS 2 - n AREDS 2 - on AREDS 2 - Metoprolol Metoprolol No 1{table BID Metoprolol Tartrate 50 Tartrate 50 t_with_ Tartrate MG MG food} 50 MG Pantoprazol Pantoprazol No 1{table QD Pantoprazo e Sodium 40 e Sodium 40 t} le Sodium MG MG 40 MG Montelukast Montelukast No 1{table QD Montelukas Sodium 10 Sodium 10 t} t Sodium MG MG 10 MG buPROPion buPROPion No 1{table QD buPROPion HCl ER (XL) HCl ER (XL) t_in_th HCl ER 150 MG 150 MG e_morni (XL) 150 ng} MG Methylpheni Methylpheni No 3{table QD Methylphen date HCl 10 date HCl 10 ts} idate HCl MG MG 10 MG amLODIPine amLODIPine No 1{table QD amLODIPine Besylate 5 Besylate 5 t} Besylate 5 MG MG MG PreserVisio PreserVisio No PreserVisi n AREDS 2 - n AREDS 2 - on AREDS 2 - Metoprolol Metoprolol No 1{table BID Metoprolol Tartrate 50 Tartrate 50 t_with_ Tartrate MG MG food} 50 MG Pantoprazol Pantoprazol No 1{table QD Pantoprazo e Sodium 40 e Sodium 40 t} le Sodium MG MG 40 MG Montelukast Montelukast No 1{table QD Montelukas Sodium 10 Sodium 10 t} t Sodium MG MG 10 MG buPROPion buPROPion No 1{table QD buPROPion HCl ER (XL) HCl ER (XL) t_in_th HCl ER 150 MG 150 MG e_morni (XL) 150 ng} MG Methylpheni Methylpheni No 3{table QD Methylphen date HCl 10 date HCl 10 ts} idate HCl MG MG 10 MG Montelukast Montelukast No Montelukas Sodium 10 Sodium 10 t Sodium MG MG 10 MG PreserVisio PreserVisio No PreserVisi n AREDS 2 - n AREDS 2 - on AREDS 2 - buPROPion buPROPion No 1{table QD buPROPion HCl ER (XL) HCl ER (XL) t_in_th HCl ER 150 MG 150 MG e_morni (XL) 150 ng} MG amLODIPine amLODIPine No amLODIPine Besylate 5 Besylate 5 Besylate 5 MG MG MG Pantoprazol Pantoprazol No Pantoprazo e Sodium 40 e Sodium 40 le Sodium MG MG 40 MG Metoprolol Metoprolol No Metoprolol Tartrate 50 Tartrate 50 Tartrate MG MG 50 MG Methylpheni Methylpheni No 3{table QD Methylphen date HCl 10 date HCl 10 ts} idate HCl MG MG 10 MG Norvasc 5 Norvasc 5 No Norvasc 5 MG MG MG Naproxen Naproxen No Naproxen Singulair Singulair No 1{table QD Singulair 10 MG 10 MG t} 10 MG amLODIPine amLODIPine No 1{table QD amLODIPine Besylate 5 Besylate 5 t} Besylate 5 MG MG MG Meclizine Meclizine No 1{table QD Meclizine HCl 25 MG HCl 25 MG t_as_ne HCl 25 MG eded} Pantoprazol Pantoprazol No Pantoprazo e Sodium 40 e Sodium 40 le Sodium MG MG 40 MG Metoprolol Metoprolol No 1{table BID Metoprolol Tartrate 25 Tartrate 25 t_with_ Tartrate MG MG food} 25 MG Ritalin SR Ritalin SR No Ritalin SR Flonase 50 Flonase 50 No 1{spray QD Flonase 50 MCG/ACT MCG/ACT _in_eac MCG/ACT h_nostr il} Metoprolol Metoprolol No Metoprolol Tartrate 50 Tartrate 50 Tartrate MG MG 50 MG Immunizations Ordered Filled Immunization Date Status Comments [facility] e Immunization Name Name FluAD FluAD 2019-09-29 Completed [facility] - 12:32:00 [facility] FluAD FluAD 2019-09-29 Completed [facility] - 12:32:00 [facility] FluAD FluAD 2019-09-29 Completed [facility] - 12:32:00 [facility] FluAD FluAD 2019-09-29 Completed [facility] - 12:32:00 [facility] FluAD FluAD 2019-09-29 Completed [facility] - 12:32:00 [facility] FluAD FluAD 2019-09-29 Completed [facility] - 12:32:00 [facility] FluAD FluAD 2019-09-29 Completed [facility] - 12:32:00 [facility] FluAD FluAD 2019-09-29 Completed [facility] - 12:32:00 [facility] FluAD FluAD 2019-09-29 Completed [facility] - 12:32:00 [facility] FluAD FluAD 2019-09-29 Completed [facility] - 12:32:00 [facility] FluAD FluAD 2019-09-29 Completed [facility] - 12:32:00 [facility] FluAD FluAD 2019-09-29 Completed [facility] - 12:32:00 [facility] FluAD FluAD 2019-09-29 Completed [facility] - 12:32:00 [facility] FluAD FluAD 2019-09-29 Completed [facility] - 12:32:00 [facility] FluAD FluAD 2019-09-29 Completed [facility] - 12:32:00 [facility] FluAD FluAD 2019-09-29 Completed [facility] - 12:32:00 [facility] FluAD FluAD 2019-09-29 Completed [facility] - 12:32:00 [facility] FluAD FluAD 2019-09-29 Completed [facility] - 12:32:00 [facility] Influenza, 2019-09-29 [facility] Influenza, 2019-09-29 Completed [facility], [facility] Influenza, 2019-09-29 Completed [facility], 00:00[facility]00 [facility] Influenza, 2019-09-29 Completed [facility], 00:00:00 [facility] FluAD FluAD 2019-09-29 Completed [facility] - 00:00:00 [facility] Vital Signs Vital Name Observation Time Observation Value Comments Source Systolic blood 2023-04-09 16:11:00 164 mm[Hg] Univer sity of pressure [facility] Diastolic blood 2023-04-09 16:11:00 82 mm[Hg] Unive rsity of [facility] Heart rate 2023-04-09 16:11:00 53 /min [facility] Body temperature 2023-04-09 16:11:00 36.39 Daily [facility] 2023-04-09 16:11:00 16 /min [facility] Body height 2023-04-09 16:11:00 165.1 cm [facility] Body weight 2023-04-09 16:11:00 84.641 kg [facility] BMI 2023-04-09 16:11:00 31.05 kg/m2 [facility] Oxygen saturation in 2023-04-09 16:11:00 96 /min [facility] Arterial blood by [facility] Pulse oximetry Branch Systolic blood 2022-04-03 15:56:00 156 mm[Hg] Univer sity of pressure [facility] Diastolic blood 2022-04-03 15:56:00 92 mm[Hg] Unive rsity of pressure [facility] Heart rate 2022-04-03 15:55:00 56 /min Universi ty [facility] Body temperature 2022-04-03 15:55:00 36.5 Daily [facility] Respiratory rate 2022-04-03 15:55:00 16 /min [facility] Body height 2022-04-03 15:55:00 162.6 cm [facility] Body weight 2022-04-03 15:55:00 87.091 kg [facility] BMI 2022-04-03 15:55:00 32.96 kg/m2 [facility] Oxygen saturation in 2022-04-03 15:55:00 97 /min [facility] blood by [facility] Pulse oximetry Branch height 2022-04-03 15:20:00 65.00 [in_i] [facility] weight 2022-04-03 15:20:00 191 [lb_av] [facility] temperature 2022-04-03 15:20:00 97 [degF] [facility] bmi 2022-04-03 15:20:00 31.78 kg/m2 [facility] oximetry 2022-04-03 15:20:00 96 % [facility] respiratory rate 2022-04-03 15:20:00 19 /min [facility] blood pressure 2022-04-03 15:20:00 120 mm[Hg] [facility] - systolic [facility] blood pressure 2022-04-03 15:20:00 70 mm[Hg] [facility] - diastolic [facility] Height 2020-06-28 00:00:00 65 [in_i] [facility] BMI (Body Mass 2020-06-28 00:00:00 30.8 kg/m2 [facility] e Family Index) Practice Body Weight 2020-06-28 00:00:00 185 [lb_av] [facility] Procedures Procedure Date / Time Performed Performing Clinician [facility] addi ASSIGNMENT OF BENEFITS 2023-04-09 15:50:20 Doctor Unassigned, No [facility] EXTERNAL MAMMOGRAM 2022-02-02 14:39:00 Doctor Unassigned, No [facility] Plan of Care Planned Activity Planned Date Details Comments Source Future Scheduled 2023-07-06 Screening for [facility] Test 07:05:17 malignant neoplasm of colon (procedure) [code = 871727553] Future Scheduled 2023-07-06 Screening for [facility] Test 07:05:17 malignant neoplasm of colon (procedure) [code = 810281983] Future Scheduled 2023-07-06 Screening for [facility] Test 07:05:17 malignant neoplasm of colon (procedure) [code = 053922618] Future Scheduled 2023-07-06 COVID-19 VACCINE (#1) [facility] Test 07:05:17 [code = COVID-19 VACCINE (#1)] Future Scheduled 2023-07-06 BREAST CANCER [facility] Test 07:05:17 SCREENING [code = BREAST CANCER SCREENING] Future Scheduled 2023-07-06 Screening for [facility] Test 07:05:17 malignant neoplasm of colon (procedure) [code = [id number]] Future Scheduled 2023-07-06 Screening for [facility] Test 07:05:17 malignant neoplasm of colon (procedure) [code = 574771058] Future Scheduled 2023-07-06 SHINGLES VACCINES (1 Met [facility] Test 07:05:17 of 2) [code = SHINGLES VACCINES (1 of 2)] Future Scheduled 2023-07-06 65+ [facility]:17 VACCINE (1 - PCV) [code = 65+ PNEUMOCOCCAL VACCINE (1 - PCV)] Future Scheduled 2023-07-06 INFLUENZA VACCINE (#1) [facility] Test 07:05:17 [code = INFLUENZA VACCINE (#1)] Future Scheduled 2023-04-02 COVID-19 VACCINE (#1) [facility] Test 09:51:43 [code = COVID-19 VACCINE (#1)] Future Scheduled 2023-04-02 BREAST CANCER [facility] Test 09:51:43 SCREENING [code = BREAST CANCER SCREENING] Future Scheduled 2023-04-02 COLONOSCOPY SCREENING [facility] Test 09:51:43 [code = COLONOSCOPY SCREENING] Future Scheduled 2023-04-02 SHINGLES VACCINES (1 Met [facility] Test 09:51:43 of 2) [code = SHINGLES VACCINES (1 of 2)] Future Scheduled 2023-04-02 65+ [facility] 09:51:43 VACCINE (1 - PCV) [code = 65+ PNEUMOCOCCAL VACCINE (1 - PCV)] Future Scheduled 2023-04-02 INFLUENZA VACCINE [facility] Test 09:51:43 [code = INFLUENZA VACCINE] Future Scheduled 2023-04-02 COVID-19 VACCINE (#1) [facility] Test 09:51:43 [code = COVID-19 VACCINE (#1)] Future Scheduled 2023-04-02 BREAST CANCER [facility] Test 09:51:43 SCREENING [code = BREAST CANCER SCREENING] Future Scheduled 2023-04-02 COLONOSCOPY SCREENING [facility] Test 09:51:43 [code = COLONOSCOPY SCREENING] Future Scheduled 2023-04-02 SHINGLES VACCINES (1 Met [facility] Test 09:51:43 of 2) [code = SHINGLES VACCINES (1 of 2)] Future Scheduled 2023-04-02 65+ [facility]AL [facility] Test 09:51:43 VACCINE (1 - PCV) [code = 65+ PNEUMOCOCCAL VACCINE (1 - PCV)] Future Scheduled 2023-04-02 [facility]INE [facility] 09:51:43 [code = INFLUENZA VACCINE] Future Scheduled 2023-02-19 COVID-19 VACCINE (#1) [facility] Test 13:40:16 [code = COVID-19 VACCINE (#1)] Future Scheduled 2023-02-19 BREAST [facility] Test 13:40:16 SCREENING [code = BREAST CANCER SCREENING] Future Scheduled 2023-02-19 COLONOSCOPY SCREENING [facility] Test 13:40:16 [code = COLONOSCOPY SCREENING] Future Scheduled 2023-02-19 SHINGLES VACCINES (1 Met [facility] Test 13:40:16 of 2) [code = SHINGLES VACCINES (1 of 2)] Future Scheduled 2023-02-19 65+ [facility]AL [facility] Test 13:40:16 VACCINE (1 - PCV) [code = 65+ PNEUMOCOCCAL VACCINE (1 - PCV)] Future Scheduled 2023-02-19 [facility]INE [facility] 13:40:16 [code = INFLUENZA VACCINE] Encounters Start End Encounter Admission Attending Care Care Encounter Source Date/Time Date/Time Type Type Clinicians Facility Department ID 2023-02-18 Outpatient [facility] [id number] Common 10:47:00 Mariel [id number] [facility] 2022-12-25 Outpatient Gwen [facility] [id number] Common 11:01:00 Mariel [id number] [facility] 2022-09-03 Outpatient Burrows, Na STLMLC STLMLC [id number] 2 Common 07:33:00 [facility] 2022-08-16 Outpatient Burrows, Na STLMLC STLMLC [id number] 2 Common 09:38:01 [facility] 2022-04-10 Outpatient Burrows, Na STLMLC STLMLC [id number] 2 Common 09:54:00 [facility] 2022-03-30 Outpatient Burrows, Na STLMLC STLMLC [id number] 2 Common 10:07:10 [facility] 2022-01-26 Outpatient Burrows, Na STLMLC STLMLC [id number] 2 Common 10:24:02 [facility] 2022-01-15 Outpatient Burrows, Na STLMLC STLMLC [id number] 2 Common 08:37:00 [facility] 2021-12-06 Outpatient [place]rows, Na STLMLC STLMLC [id number] 2 Common 12:05:31 [facility] 2021-12-06 Outpatient [place]rows, Na STLMLC STLMLC [id number] 2 Common 12:04:58 [id number] [facility] 2021-12-06 Outpatient [place]rows, Na STLMLC STLMLC [id number] 2 Common 11:46:16 [id number] [facility] 2021-12-06 Outpatient Burrows, Na STLMLC STLMLC [id number] 2 Common 11:45:40 [id number] [facility] 2021-12-06 Outpatient [place]rows, Na STLMLC STLMLC [id number] 2 Common 11:37:04 [id number] [facility] 2021-12-06 Outpatient [place]rows, Na STLMLC STLMLC [id number] 2 Common 11:15:16 [id number] [facility] 2021-12-06 Outpatient [place]rows, Na STLMLC STLMLC [id number] 2 Common 11:08:17 [id number] [facility] 2024-04-13 2024-04-13 Outpatient R CARTER NAGY [facility] B [id number] Univers 10:30:00 10:30:00 TOÑOCARTER GORDILLO [facility] 2023-07-11 2023-07-11 Outpatient DMG DM [id number] Devoted 00:00:00 00:00:00 [id number] [facility] 2023-04-09 2023-04-09 Outpatient R CARTER NAGY [facility] B [id number] Univers 11:00:00 11:35:10 IDACARTER PHILLIPS [facility] 2023-04-09 2023-04-09 Office Toñojeff LINDAKEITH ENFIELD 1.2.840.114 [id number] Univers 11:00:00 11:35:10 Visit Carter AZEVEDO 350.1.13.10 it y of WOMEN'S 4.2.7.2.686 [facility] [id number] [facility] [address] 2023-04-09 2023-04-09 Orders Doctor FRIDA 1.2.840.114 [id number] Univers 00:00:00 00:00:00 Only Unassigned, CIELO 350.1.13.10 ity of [place] [facility] 4.2.7.2.686 Jerel [id number] [facility] [address] 2023-04-03 2023-04-03 Outpatient R TOÑOCARTER GORDILLO [facility] B [id number] Univers 10:30: 10:30:00 IDACARTER PHILLIPS [facility] 2023-04-03 2023-04-03 Outpatient R TOÑOWILNERMATTCARTER PHILLIPS [facility] B [id number] Univers 10:30:00 10:30:00 [facility] 2023-04-02 2023-04-02 Pre Visit VÍCTOR Chan [id number] Univers 00:00:00 00:00:00 Outreach Jyoti LOONEY 350.1.13.10 i ty of [place] 4.2.7.2.686 Alfredo s [phone] [place] [address] [address] 2022-12-19 2022-12-19 Telephone Team, [facility] FRIDA Indu.2.840.114 [id number] Univers 00:00:00 00:00:00 Health CIELO 350.1.13.10 it y of [facility] 4.2.7.2.686 [place] [id number] [place] [address] [address] 2022-09-29 2022-09-29 (TEL) STLMLC STLMLC [id number] Co mmon 00:00:00 00:00:00 [facility] 2022-09-26 2022-09-26 (TEL) STLMLC STLMLC [id number] Co mmon 00:00:00 00:00:00 [facility] 2022-09-13 2022-09-13 (TEL) STLMLC STLMLC [id number] Co mmon 00:00:00 00:00:00 [facility] 2022-09-06 2022-09-06 (TEL) STLMLC STLMLC [id number] Co mmon 00:00:00 00:00:00 [facility] 2022-09-04 2022-09-04 OL DIG E/M STLMLC STLMLC [id number] Common 00:00:00 00:00:[address] [facility] 09-30 Spir it [facility] 2022-08-10 2022-08-10 (TEL) STLMLC STLMLC [id number] Co mmon 00:00:00 00:00:00 [facility] 2022-07-26 2022-07-26 Telephone Team, [facility] FRIDA Indu.2.840.114 [id number] Univers 00:00:00 00:00:00 Health CIELO 350.1.13.10 it y of [facility] 4.2.7.2.686 [place] [id number] [place] [address] [address] 2022-05-08 2022-05-08 OL DIG E/M STLMLC STLMLC [id number] Common 00:00:00 00:00:[address] [facility] 11-20 Spir it MIN - [facility] 2022-04-26 2022-04-26 (TEL) STLMLC STLMLC [id number] Co mmon 00:00:00 00:00:00 [facility] 2022-04-18 2022-04-18 (TEL) STLMLC STLMLC [id number] Co mmon 00:00:00 00:00:00 [facility] 2022-04-03 2022-04-03 Outpatient R EVANS GRACIE [facility] [id number] Univers 10:30:00 11:15:55 ity of [facility] 2022-04-03 2022-04-03 Office Evans Gracie [facility] 1.2.840.114 [id number] [facility] 10:30:00 11:15:55 Visit JOLLY 350.1.13.10 it [place] [id number] [address] 2022-04-03 2022-04-03 OFFICE STLMLC STLMLC [id number] Co mmon 00:00:00 00:00:00 VISIT EST Spir it PT LEVEL 3 - [facility] 2022-03-26 2022-03-26 (TEL) STLMLC STLMLC [id number] Co mmon 00:00:00 00:00:00 [facility] 2022-03-14 2022-03-14 Orders Doctor FRIDA 1.2.840.114 [id number] Univers 00:00:00 00:00:00 Only Unassigned, CIELO 350.1.13.10 ity of [place] [facility] 4.2.7.2.686 Jerel as [phone] [place] [address] [address] 2022-02-23 2022-02-23 Telephone EvansGracie [facility] 1.2.840.11 [id number] Univers 00:00:00 00:00:00 JOLLY 350.1.13.10 it [id number] [address] 2022-02-20 2022-02-20 Outpatient R GRACIE KRUEGER [facility] [id number] Univers 10:30:00 11:34:11 ity of [facility] 2022-02-20 2022-02-20 Office Gracie Krueger [facility] 1.2.840.114 [id number] Univers 10:30:00 11:34:11 Visit [place] 350.1.13.10 i ty of [place] 4.2.7.2.686 [facility] [id number] Ri [address] 2022-02-20 2022-02-20 Outpatient R GRACIE KRUEGER [facility] [id number] Univers 10:30:00 11:34:11 ity of [facility] 2022-02-19 2022-02-19 Outpatient R GRACIE KRUEGER [facility] [id number] Univers 15:02:36 23:59:00 ity of [facility] 2022-02-19 2022-02-19 Outpatient R GRACIE KRUEGER [facility] [id number] Univers 15:02:36 23:59:00 ity of [facility] 2022-02-19 2022-02-19 Hospital Gracie Krueger [facility] 1.2.840.114 [id number] Univers 15:00:00 23:59:00 Encounter [place] 350.1.13.10 ity of [place] 4.2.7.2.686 [facility] [id number] [facility] [address] [place] 2022-02-17 2022-02-17 Emergency X [facility] [id number] Univers 14:41:20 15:03:00 ity of [facility] 2022-02-07 2022-02-07 Telephone Gracie Krueger [facility] 1.2.840.11 [id number] Univers 00:00:00 00:00:00 JOLLY 350.1.13.10 it y of WOMEN'S 4.2.7.2.686 [facility] [id number] [address] 2022-02-06 2022-02-06 Telephone Gracie Krueger [facility] 1.2.840.114 [id number] Univers 00:00:00 00:00:00 [place] 350.1.13.10 i ty [place].2.7.2.[place] [id number] [address] 2022-02-04 2022-02-04 (TEL) [facility] [id number] Co mmon 00:00:00 00:00:00 [facility] 2022-02-02 2022-02-02 Outpatient R GRACIE KRUEGER [facility] [id number] Univers 14:30:00 16:12:54 ity [facility] 2022-02-02 2022-02-02 Office Gracie Krueger [facility] 1.2.840.114 [id number] Univers 14:30:00 16:12:54 Visit BEBETO 350.1.13.10 i ty of [place].2.[place] [id number] [address] 2022-02-02 2022-02-02 Outpatient R GRACIE KRUEGER [facility] [id number] Univers 14:30:00 16:12:54 ity [facility] 2022-02-02 2022-02-02 Outpatient R GRACIE KRUEGER [facility] [id number] Univers 14:15:00 14:15:00 ity [facility] 2022-02-02 2022-02-02 Orders Doctor FRIDA 1.2.840.114 [id number] Univers 00:00:00 00:00:00 Only Unassigned, CIELO 350.1.13.10 ity of [place] [facility] 4.2.7.2.686 Jerel as [id number] [address] 2022-01-19 2022-01-19 Telephone Gracie Krueger [facility] 1.2.840.114 [id number] Univers 00:00:00 00:00:00 [place] 350.1.13.10 i ty of [place] 4.2.7.2.686 [place] [id number] [address] 2022-01-19 2022-01-19 (TEL) STLC STLMLC [id number] Co mmon 00:00:00 00:00:00 [facility] 2022-01-182022-01-18 Telephone Kala [facility] 1.2.840.11 [id number] Univers 00:00:00 00:00:00 Carter AZEVEDO 350.1.13.10 it [place] [id number] [address] 2022-01-17 2022-01-17 [facility] 1.2.840.114 [id number] Univers 13:00:00 13:30:00 Visit Carter AZEVEDO 350.1.13.10 it [place] [id number] [address] 2022-01-17 2022-01-17 [facility] 1.2.840.114 [id number] Univers 13:00:00 13:30:00 Visit Carter AZEVEDO 350.1.13.10 it [place] [id number] [address] 2022-01-17 2022-01-17 Outpatient R CARTER NAGY [facility] B [id number] Univers 13:00:00 13:00:00 CARTER NAGY melissa [facility] 2022-01-17 2022-01-17 Outpatient R CARTER NAGY [facility] B [id number] Univers 13:00:00 13:00:00 TOÑOCARTER GORDILLO [facility] 2022-01-17 2022-01-17 Outpatient R CARTER NAGY [facility] B [id number] Univers 13:00:00 13:00:00 [facility] 2022-01-17 2022-01-17 (TEL) [facility] [id number] Co mmon 00:00:00 00:00:00 Spirit - [facility] 2022-01-17 2022-01-17 OL DIG E/M [facility] STLC [id number] Common 00:00:00 00:00:00 SVC 21+ Spirit MIN [facility] 2022-01-12 2022-01-12 (TEL) STLMLC STLMLC [id number] Co mmon 00:00:00 00:00:00 [facility] 2021-12-15 2021-12-15 (TEL) STLMLC STLMLC [id number] Co mmon 00:00:00 00:00:00 [facility] 2021-05-03 2021-05-03 Outpatient Miller_S_AH VFP VFP [address] [place] [address] 11:49:00 11:49:00 [id number] Family Practic e 2020-11-25 2020-11-25 Outpatient STLMLC STLMLC [id number] Common 00:00:00 00:00:00 [facility] 2020-11-24 2020-11-24 Outpatient STLMLC STLMLC [id number] Common 00:00:00 00:00:00 [facility] 2020-09-27 2020-09-27 Outpatient STLMLC STLMLC [id number] Common 00:00:00 00:00:00 [facility] 2020-07-26 2020-07-26 Outpatient STLMLC STLMLC [id number] Common 00:00:00 00:00:00 [facility] 2020-07-19 2020-07-19 Outpatient Harjinder-Mbayo VFP VFP [address] [place] [address] 01:26:00 01:26:00 _A_AH 60500 Family Practic e 2020-07-19 2020-07-19 Outpatient Harjinder-Mbayo VFP VFP [address] 01:26:00 01:26:00 _A_AH 77514 Family Practic e 2020-07-01 2020-07-01 Outpatient Harjinder-Mbayo VFP VFP [address] 12:10:00 12:10:00 _A_AH 30066 Family Practic e 2020-07-01 2020-07-01 Outpatient Harjinder-Mbayo VFP VFP [address] 12:10:00 12:10:00 _A_AH 53591 Family Practic e 2020-06-28 2020-06-28 Out[facility] [id number] Common 13:11:00 13:11:[address] [facility] 2020-06-28 2020-06-28 Cindy [facility] [place] - [id number] V illage 00:00:00 00:00:00 [facility]-ay [facility] Fam radha o, KNOWLEDGE MANAGER: Medical - Pracahsan lowery [address] [email or web address] [place] [address], [place] [address] , Ph. 2020-06-27 2020-06-27 Out[facility] [id number] Common 08:55:00 08:55:[address] Sp[address] [facility] 2020-06-24 2020-06-24 Outpatient [facility] [id number] Common 11:20:00 11:20:[address] Sp[address] [facility] 2020-04-13 2020-04-13 Outpatient Harjinder-Mbayo [facility] [address] [place] [address] 07:40:00 07:40:00 _A_AH 46787 Family Practic e 2020-03-23 2020-03-23 Out[facility] [id number] Common 11:00:00 11:00:[address] Sp[address] [facility] 2020-03-23 2020-03-23 Outpatient Harjinder-ayo [facility] [address] [place] [address] 03:03:00 03:03:00 _A_AH 88089 Family Practic e 2020-03-23 2020-03-23 [facility] [place] - [id number] V illage 00:00:00 00:00:00 Senait Bauer Famil y KNOWLEDGE MANAGER: [id number] Medical - Pract mratin Vega, [email or web address] [address], [facility] [address] , Ph. 2020-02-22 2020-02-22 Outpatient [facility] [id number] Common 14:41:00 14:41:[address] Sp[address] [facility] 2020-02-18 2020-02-18 Outpatient [facility] [id number] Common 15:18:00 15:18:[address] Sp[address] [facility] 2020-02-01 2020-02-01 Outpatient [facility] [id number] Common 13:35:00 13:35:[address] Sp[address] [facility] 2020-01-29 2020-01-29 Outpatient Harjinder-Mbayo [facility] [id number] [facility] 06:15:00 06:15:00 _A_AH 08102 Family Practic e 2019-12-29 2019-12-29 Outpatient [facility] [id number] Common 08:03:00 08:03:[address] Sp[address] [facility] 2019-09-29 2019-09-29 Outpatient [facility] [id number] Common 10:20:00 10:20:[address] Sp[address] [facility] 2019-09-28 2019-09-28 Outpatient [facility] [id number] Common 16:57:00 16:57:[address] Sp[address] [facility] 2019-09-15 2019-09-15 Outpatient [facility] [id number] Common 14:45:00 14:45:[address] Sp[address] [facility] 2019-07-07 2019-07-07 Outpatient [facility] [id number] Common 13:40:00 13:40:[address] Sp[address] [facility] 2019-04-07 2019-04-07 Outpatient [facility] [id number] Common 15:20:00 15:20:[address] Sp[address] [facility] 2019-01-07 2019-01-07 Outpatient [facility] [id number] Common 15:30:00 15:30:[address] Sp[address] [facility] 2018-10-08 2018-10-08 Outpatient [facility] [id number] Common 15:30:00 15:30:[address] Sp[address] [facility] 2018-06-27 2018-06-27 Outpatient [facility] [id number] Common 08:14:00 08:14:[address] Sp[address] [facility] 2018-06-25 2018-06-25 Outpatient [facility] [id number] Common 10:30:00 10:30:[address] Sp[address] [facility] Results Test Description Test Time Test Comments Results Result Comments Source EXTERNAL MAMMOGRAM 2022-02-04 20:12:00 Test Item Value Reference Range Interpretation Comme nts Radiology Study observation (narrative) (test code = 06993-6) ANN (test code = ANN) Please see results in External Provided. Mammogram and Ultrasound completed at [place] [address]. Lab Interpretation (test code = 26992-8) [id number] 20:12:00 Test Item Value Reference Range Interpretation Comments Radiology Study observation (narrative) (test code = 61758-9) ANN (test code = ANN) Please see results in External Provided. Mammogram and Ultrasound completed at [place] [address]. Lab Interpretation (test Normal code = 75380-6) [facility]
[2023-07-15] MEDS ORDERED: MORPHINE 4 MG/ML SYR ONE (09:17)
--- NOTE | 2023-07-15 09:59 | RAD REPORT ---
EXAM DESCRIPTION: RAD - Knee Right 3 View - 07/15/2023 9:43 am CLINICAL HISTORY: Right knee pain FINDINGS: Lucency lateral tibial plateau seen on the oblique view may indicate prominent trabecula o r nondisplaced fracture. Clinical correlation is needed see patient has point tenderness in this anderson on to suggest a fracture. Mild osteoarthritis No dislocation Small joint effusion
--- NOTE | 2023-07-15 10:07 | ER ---
Nurse's Notes [facility] Name: Monie Dailey Age: 73 yrs Sex: Female : 1950 Arrival Date: 07/15/2023 Time: 08:49 Bed 11 Private MD: Diagnosis: Pain in right knee;Effusion, knee Presentation: 07/15 09:03 Chief complaint: Patient states: Right knee pain x 1 week, hx of knee problems x 13 jl7 years. Coronavirus screen: At this time, the client does not indicate any symptoms associated with coronavirus-19. Ebola Screen: No symptoms or risks identified at this time. Initial Sepsis Screen: Does the patient meet any 2 criteria? No. Patient's initial sepsis screen is negative. Does the patient have a suspected source of infection? No. Patient's initial sepsis screen is negative. Risk Assessment: Do you want to hurt yourself or someone else? Patient reports no desire to harm self or others. Onset of symptoms is unknown. 09:03 Method Of Arrival: Ambulatory jl7 09:03 Acuity: MINGO 4 jl7 Triage Assessment: 09:05 General: Appears in no apparent distress. uncomfortable, Behavior is calm, cooperative, jl7 appropriate for age. Pain: Complains of pain in right knee Pain currently is 10 out of 10 on a pain scale. Historical: - Allergies: 09:05 Aspirin; jl7 09:05 Codeine; jl7 09:05 Ibuprofen; jl7 09:05 Iodine; jl7 09:05 Latex, Natural Rubber; jl7 09:05 PENICILLINS; jl7 09:05 teramycin; jl7 - Home Meds: 09:05 amlodipine 5 mg tab 1 tab once daily [Active]; metoprolol tartrate 50 mg Oral tab 1 tab jl7 2 times per day [Active]; montelukast 10 mg Oral tab 1 tab once daily [Active]; Protonix 40 mg Oral TbEC 1 tab once daily [Active]; Ritalin 10 mg Oral tab 1 tab 2 times per day [Active]; 09:11 Repatha Syringe 140 mg/mL subcutaneous Syringe [Active]; kc6 - PMHx: 09:05 breast cancer; Hypertension; narcolepsy; neuropathy; jl7 - Immunization history:: Adult Immunizations unknown. - Social history:: Smoking status: Patient denies any tobacco usage or history of. Screenin:09 [facility] ED Fall Risk Assessment (Adult) History of falling in the last 3 months, kc6 including since admission No falls in past 3 months (0 pts) Confusion or Disorientation No (0 pts) Intoxicated or Sedated No (0 pts) Impaired Gait Yes (1 pt) Mobility Assist Device Used Yes (1 pt) Altered Elimination No (0 pt) Score/Fall Risk Level 0 - 2 = Low Risk. Abuse screen: Denies threats or abuse. Denies injuries from another. Nutritional screening: No deficits noted. Tuberculosis screening: No symptoms or risk factors identified. Assessment: 09:10 General: Appears in no apparent distress. comfortable, Behavior is calm, cooperative, kc6 appropriate for age. Pain: Complains of pain in right knee. Neuro: Level of Consciousness is awake, alert, obeys commands, Oriented to person, place, time, situation, Appropriate for age. Cardiovascular: Capillary refill < 3 seconds. Respiratory: Airway is patent Trachea midline Respiratory effort is even, unlabored, Respiratory pattern is regular, symmetrical. GI: No signs and/or symptoms were reported involving the gastrointestinal system. : No signs and/or symptoms were reported regarding the genitourinary system. EENT: No signs and/or symptoms were reported regarding the EENT system. Derm: No signs and/or symptoms reported regarding the dermatologic system. Skin is intact, is healthy with good turgor, Skin is pink, warm \T\ dry. Musculoskeletal: No signs and/or symptoms reported regarding the musculoskeletal system. Circulation, motion, and sensation intact. Capillary refill < 3 seconds, Range of motion: intact in all extremities. 10:01 Reassessment: Patient appears in no apparent distress at this time. No changes from kc6 previously documented assessment. Patient and/or family updated on plan of care and expected duration. Pain level reassessed. Patient is alert, oriented x 3, equal unlabored respirations, skin warm/dry/pink. Vital Signs: 09:03 BP 174 / 84; Pulse 63; Resp 17; Temp 97.7; Pulse Ox 100% ; Weight 83.01 kg; Height 5 jl7 ft. 6 in. ; Pain 10/10; 09:03 Body Mass Index 29.54 (83.01 kg, 167.64 cm) [facility] 09:03 Pain Scale: Adult [facility] ED Course: 08:50 Patient arrived in ED. ts1 08:54 Melissa Petersen FNP-C [facility] snw 08:54 Bradford Strickland MD is Attending Physician. snw 08:57 Annie Barfield, SUMANTH is Primary Nurse. kc6 09:05 Triage completed. jl7 09:05 Arm band placed on right wrist. jl7 09:10 Patient has correct armband on for positive identification. Bed in low position. Call kc6 light in reach. Side rails up X2. Adult w/ patient. 09:45 Knee Right 3 View XRAY In Process Unspecified. EDMS 11:24 No provider procedures requiring assistance completed. Patient did not have IV access kc6 during this emergency room visit. Administered Medications: 09:09 Drug: morphine IM 4 mg Route: IM; Site: right deltoid; kc6 10:01 Follow up: Response: No adverse reaction; Pain is unchanged, physician notified; RASS: kc6 Alert and Calm (0) Medication: 11:24 VIS not applicable for this client. kc6 Outcome: 10:06 Discharge ordered by . snw 11:24 Discharged to home ambulatory, with family. kc6 11:24 Condition: stable 11:24 Discharge instructions given to patient, Instructed on discharge instructions, follow up and referral plans. Demonstrated understanding of instructions, follow-up care. 11:24 Patient left the ED. kc6 Signatures: Dispatcher [employer] EDMA Melissa Petersen FNP-C [employer]-Csnw Elias Martinez RN RN jl7 Campbell, Kaitlyn, SUMANTH RN kc6 Latasha Curiel PAS PAS ts1
--- NOTE | 2023-07-15 10:07 | EDPHYS ---
Physician Documentation [facility] Name: Monie Dailey Age: 73 yrs Sex: Female : 1950 Arrival Date: 07/15/2023 Time: 08:49 Bed 11 Private MD: ED Physician Bradford Strickland HPI: 07/15 09:04 This 73 yrs old Female presents to ER via Unassigned with complaints of Leg Pain. snw 09:04 The patient presents with decreased range of motion, pain, swelling, tenderness. The snw complaints affect the right knee. Onset: The symptoms/episode began/occurred acutely. The patient has experienced similar episodes in the past. knee dislocation 10 yr ago. Historical: - Allergies: 09:05 Aspirin; jl7 09:05 Codeine; jl7 09:05 Ibuprofen; jl7 09:05 Iodine; jl7 09:05 Latex, Natural Rubber; jl7 09:05 PENICILLINS; jl7 09:05 teramycin; jl7 - Home Meds: 09:05 amlodipine 5 mg tab 1 tab once daily [Active]; metoprolol tartrate 50 mg Oral tab 1 tab jl7 2 times per day [Active]; montelukast 10 mg Oral tab 1 tab once daily [Active]; Protonix 40 mg Oral TbEC 1 tab once daily [Active]; Ritalin 10 mg Oral tab 1 tab 2 times per day [Active]; 09:11 Repatha Syringe 140 mg/mL subcutaneous Syringe [Active]; kc6 - PMHx: 09:05 breast cancer; Hypertension; narcolepsy; neuropathy; jl7 - Immunization history:: Adult Immunizations unknown. - Social history:: Smoking status: Patient denies any tobacco usage or history of. ROS: 09:04 Constitutional: Negative for fever, chills, and weight loss, Eyes: Negative for injury, snw pain, redness, and discharge, ENT: Negative for injury, pain, and discharge, Neck: Negative for injury, pain, and swelling, Cardiovascular: Negative for chest pain, palpitations, and edema, Respiratory: Negative for shortness of breath, cough, wheezing, and pleuritic chest pain, Abdomen/GI: Negative for abdominal pain, nausea, vomiting, diarrhea, and constipation, Back: Negative for injury and pain, : Negative for injury, bleeding, discharge, and swelling, Skin: Negative for injury, rash, and discoloration, Neuro: Negative for headache, weakness, numbness, tingling, and seizure, Psych: Negative for depression, anxiety, suicide ideation, homicidal ideation, and hallucinations. 09:04 MS/extremity: Positive for decreased range of motion, pain, swelling, tenderness, of the right knee. Exam: 09:02 Constitutional: This is a well developed, well nourished patient who is awake, alert, snw and in no acute distress. Head/Face: Normocephalic, atraumatic. Eyes: Pupils equal round and reactive to light, extra-ocular motions intact. Lids and lashes normal. Conjunctiva and sclera are non-icteric and not injected. Cornea within normal limits. Periorbital areas with no swelling, redness, or edema. ENT: Nares patent. No nasal discharge, no septal abnormalities noted. Tympanic membranes are normal and external auditory canals are clear. Oropharynx with no redness, swelling, or masses, exudates, or evidence of obstruction, uvula midline. Mucous membranes moist. Neck: Trachea midline, no thyromegaly or masses palpated, and no cervical lymphadenopathy. Supple, full range of motion without nuchal rigidity, or vertebral point tenderness. No Meningismus. Chest/axilla: Normal chest wall appearance and motion. Nontender with no deformity. No lesions are appreciated. Cardiovascular: Regular rate and rhythm with a normal S1 and S2. No gallops, murmurs, or rubs. Normal PMI, no JVD. No pulse deficits. Respiratory: Lungs have equal breath sounds bilaterally, clear to auscultation and percussion. No rales, rhonchi or wheezes noted. No increased work of breathing, no retractions or nasal flaring. Abdomen/GI: Soft, non-tender, with normal bowel sounds. No distension or tympany. No guarding or rebound. No evidence of tenderness throughout. Back: No spinal tenderness. No costovertebral tenderness. Full range of motion. Skin: Warm, dry with normal turgor. Normal color with no rashes, no lesions, and no evidence of cellulitis. Neuro: Awake and alert, GCS 15, oriented to person, place, time, and situation. Cranial nerves II-XII grossly intact. Motor strength 5/5 in all extremities. Sensory grossly intact. Cerebellar exam normal. Normal gait. Psych: Awake, alert, with orientation to person, place and time. Behavior, mood, and affect are within normal limits. 09:02 Musculoskeletal/extremity: Extremities: grossly normal except: noted in the right knee: decreased ROM, swelling, tenderness, ROM: limited active range of motion due to pain, limited passive range of motion due to pain, Circulation is intact in all extremities. Sensation intact. Vital Signs: 09:03 BP 174 / 84; Pulse 63; Resp 17; Temp 97.7; Pulse Ox 100% ; Weight 83.01 kg; Height 5 jl7 ft. 6 in. ; Pain 08/20; 09:03 Body Mass Index 29.54 (83.01 kg, 167.64 cm) [facility] er 09:03 Pain Scale: Adult jl7 MDM: 09:06 Patient medically screened. snw 10:07 Differential diagnosis: dislocation, closed fracture, contusion, tendonitis. Data snw reviewed: vital signs, nurses notes, radiologic studies, plain films. I considered the following discharge prescriptions or medication management in the emergency department Medications were administered in the Emergency Department. See MAR. Counseling: I had a detailed discussion with the patient and/or guardian regarding the historical points, exam findings, and any diagnostic results supporting the discharge/admit diagnosis, radiology results, the need for outpatient follow up, for definitive care, a orthopedic surgeon. Response to treatment: the patient's symptoms have mildly improved after treatment. Special discussion: I have referred the patient to see his PCP for further evaluation of high blood pressure. Based on the history and exam findings, there is no indication for further emergent testing or inpatient evaluation. I discussed with the patient/guardian the need to see the orthopedic surgeon for further evaluation of the symptoms. I discussed with the patient/guardian the need to see the primary care provider for further evaluation of the symptoms. 07/15 09:02 Order name: Knee Right 3 View XRAY; Complete Time: 10:04 snw 07/15 10:05 Order name: Knee Immobilizer; Complete Time: 10:51 snw 07/15 10:05 Order name: Misc. Order: 4 pt walker; Complete Time: 10:51 snw Administered Medications: :09 Drug: morphine IM 4 mg Route: IM; Site: right deltoid; kc6 10:01 Follow up: Response: No adverse reaction; Pain is unchanged, physician notified; RASS: kc6 Alert and Calm (0) Disposition: 11:35 Co-signature as Attending Physician, Bradford Strickland MD I reviewed the patient's care rn provided by the Advanced Practice Provider and agree with the diagnosis and treatment plan. Disposition Summary: 07/15/23 10:06 Discharge Ordered Location: Home snw Condition: Stable snw Diagnosis - Pain in right knee snw - Effusion, knee snw Followup: snw - With: Emergency Department - When: As needed - Reason: Worsening of condition Followup: snw - With: Private Physician - When: 2 - 3 days - Reason: Recheck today's complaints, Continuance of care, Re-evaluation by your physician Discharge Instructions: - Discharge Summary Sheet snw - Joint Pain snw - How to Use a Knee Brace snw - Acute Knee Pain, Adult snw - How to Use Cold Therapy, Mdij-ca-[id number] snw - Heat Therapy snw Forms: - Medication Reconciliation Form snw - Thank You Letter snw - Antibiotic Education snw - Prescription Opioid Use snw - Patient Portal Instructions snw - Leadership Thank You Letter snw Signatures: Dispatcher [employer] EDMelissa Teresa, EIGHT SECTION BLOWER-C EIGHT SECTION BLOWER-Csnw Bradford Strickland MD MD rn Leal, Jahala RN RN jl7 Annie Barfield RN RN kc6
[2023-07-15 11:31] VITALS: BP 174/84; TEMP 97.7; O2SAT 100
== END 2023-07-15 11:24 | disposition home or self-care (01) ==
LOC: ER 08:49
DX: M25.461 Effusion, right knee (principal)
CPT/HCPCS: 96372; 99284

== ENCOUNTER → 2023-11-09 | Emergency (ER) | payer MEDICARE ==
--- NOTE | 2023-11-09 20:28 | ER ---
Nurse's Notes [facility] Name: Monie Dailey Age: 73 yrs Sex: Female : 1950 Arrival Date: 11/09/2023 Time: 19:43 Bed IW6 Private MD: Diagnosis: Other acute sinusitis Presentation: 11/09 20:23 Chief complaint: Patient states: 2 WK COUGH AND DIARRHEA. Coronavirus screen: At this hb time, the client does not indicate any symptoms associated with coronavirus-19. Ebola Screen: No symptoms or risks identified at this time. Initial Sepsis Screen: Does the patient meet any 2 criteria? No. Patient's initial sepsis screen is negative. Does the patient have a suspected source of infection? No. Patient's initial sepsis screen is negative. Risk Assessment: Do you want to hurt yourself or someone else? Patient reports no desire to harm self or others. Onset of symptoms is unknown. 20:23 Method Of Arrival: Ambulatory hb 20:23 Acuity: MINGO 4 hb Triage Assessment: 20:23 General: Appears in no apparent distress. Behavior is calm, cooperative, appropriate hb for age. Pain: Denies pain. GI: Reports diarrhea. Historical: - Allergies: 20:22 Aspirin; hb 20:22 Codeine; hb 20:22 Ibuprofen; hb 20:22 Iodine; hb 20:22 Latex; hb 20:22 PENICILLINS; hb 20:22 teramycin; hb - PMHx: 20:22 breast cancer; Hypertension; narcolepsy; neuropathy; hb - Immunization history:: Adult Immunizations up to date. - Social history:: Smoking status: Patient denies any tobacco usage or history of. Screenin:24 [facility] ED Fall Risk Assessment (Adult) History of falling in the last 3 months, hb including since admission No falls in past 3 months (0 pts). Abuse screen: Denies threats or abuse. Denies injuries from another. Nutritional screening: No deficits noted. Tuberculosis screening: No symptoms or risk factors identified. Vital Signs: 20:23 BP 160 / 93; Pulse 69; Resp 16; Temp 97.3; Pulse Ox 96% ; hb ED Course: 19:49 Patient arrived in ED. jj6 19:50 Moe Payton MD is Attending Physician. ec2 20:23 Arm band placed on. hb 20:24 Triage completed. hb 20:24 Patient has correct armband on for positive identification. hb 20:34 No provider procedures requiring assistance completed. Patient did not have IV access hb during this emergency room visit. Administered Medications: No medications were administered Outcome: 20:27 Discharge ordered by . ec2 20:34 Discharged to home ambulatory, hb 20:34 Condition: stable 20:34 Discharge instructions given to patient, Instructed on discharge instructions, follow up and referral plans. medication usage, Demonstrated understanding of instructions, follow-up care, medications, Prescriptions given X 3, 20:35 Patient left the ED. hb Signatures: Jyoti Rogers RN RN Yulia Dixon jj6 Moe Payton MD MD ec2
--- NOTE | 2023-11-09 20:28 | EDPHYS ---
Physician Documentation [facility] Name: Monie Dailey Age: 73 yrs Sex: Female : 1950 Arrival Date: 11/09/2023 Time: 19:43 Bed IW6 Private MD: ED Physician Moe Payton HPI: 11/09 20:28 This 73 yrs old Female presents to ER via Ambulatory with complaints of ec2 Cough, Nausea/Vomiting/Diarrhea, Sore on foot. 20:28 Patient arrives today for evaluation of cough and cold symptoms. Patient reports she ec2 been having some congestion as well as persistent cough ongoing for approximately 2 weeks. Patient reports no fevers or chills, no nausea or vomiting. States that the cough is caused her to have occasional emesis. Patient reports no significant difficulty breathing. Reports that she had bouts of diarrhea as well. States that she had taken an antidiarrheal and her diarrheal symptoms since resolved. Patient is listed as having nausea and vomiting however denied this to me.. Historical: - Allergies: 20:22 Aspirin; hb 20:22 Codeine; hb 20:22 Ibuprofen; hb 20:22 Iodine; hb 20:22 Latex; hb 20:22 PENICILLINS; hb 20:22 teramycin; hb - PMHx: 20:22 breast cancer; Hypertension; narcolepsy; neuropathy; hb - Immunization history:: Adult Immunizations up to date. - Social history:: Smoking status: Patient denies any tobacco usage or history of. ROS: 20:28 Constitutional: as per hpi ec2 Exam: 20:28 Constitutional: GEN: NAD Head: atraumatic Eyes: EOMI Ears: External ears are ec2 normal. CV: regular rate LUNGS: no respiratory distress, no wheezes, no rales, no rhonchi ABD: non-distended SKIN: no evidence of rashes MSK: no evidence of trauma NEURO: moves all extremities equally Vital Signs: 20:23 BP 160 / 93; Pulse 69; Resp 16; Temp 97.3; Pulse Ox 96% ; hb MDM: 20:18 Patient medically screened. ec2 20:28 Data reviewed: vital signs. ED course: Patient arrives today for 2 weeks of cough and ec2 cold symptoms. Examination remarkable for well-appearing nontoxic individual was otherwise in no acute distress. Patient also has a small sore on the plantar aspect of her foot that is noninfectious appearing. Ultimately given the 2 weeks of symptoms with sinusitis type symptoms, will start her antibiotics given duration. Will start her on steroids as well. Additionally will prescribe her cough suppressant. I suspect possible bacterial sinusitis, possible bronchitis, low suspicion for pneumonia given lack of focal lung sounds, low suspicion for NAVA or electrolyte disturbances given the patient's general well appearance and lack of systemic signs symptoms. Patient discharged home and instructed to follow-up with primary care doctor.. Administered Medications: No medications were administered Disposition Summary: 11/09/23 20:27 Discharge Ordered Notes: Location: Home ec2 Condition: Stable ec2 Diagnosis - Other acute sinusitis ec2 Followup: ec2 - With: Private Physician - When: - Reason: Re-evaluation by your physician Discharge Instructions: - Discharge Summary Sheet ec2 - Sinusitis, Adult ec2 - Acute Bronchitis, Adult, [id number] ec2 Forms: - Medication Reconciliation Form ec2 - Thank You Letter ec2 - Antibiotic Education ec2 - Prescription Opioid Use ec2 - Patient Portal Instructions ec2 - Leadership Thank You Letter ec2 Prescriptions: - Tessalon Perles 100 mg Oral Capsule - take 1 capsule ORAL route every 8 hours As needed; 15 capsule; Refills: 0, ec2 Product Selection Permitted - Zithromax Z-Maurice 250 mg Oral Tablet - take 1 tablet ORAL route as directed for 5 days Day 1 - take two (2) tablets ec2 one time. Day 2, 3, 4 , 5 take one (1) tablet once daily.; 6 tablet; Refills: 0, Product Selection Permitted - Prednisone 20 mg Oral Tablet - take 2 tablets ORAL route once daily for 5 days; 10 tablet; Refills: 0, Product ec2 Selection Permitted Signatures: Jyoti Rogers, SUMANTH RN Moe Ring MD MD ec2
[2023-11-09 21:16] VITALS: BP 160/93; TEMP 97.3; O2SAT 96
== END ==
LOC: ER 19:43
DX: J01.80 Other acute sinusitis (principal); Z88.0 Allergy status to penicillin; Z88.1 Allergy status to other antibiotic agents; Z88.5 Allergy status to narcotic agent; Z88.6 Allergy status to analgesic agent; Z91.040 Latex allergy status
CPT/HCPCS: 99283

== ENCOUNTER 2024-03-15 13:20 | Inpatient (IN) | payer MEDICARE ==
[2024-03-15] MEDS ORDERED: MORPHINE 2 MG/ML SYR ONE (13:59)
[2024-03-15] MEDS ORDERED: ONDANSETRON 4 MG/2 ML VIAL ONE (13:59)
[2024-03-15] MEDS ORDERED: FAMOTIDINE 20 MG/2 ML VIAL IV ONE (13:59)
[2024-03-15] MEDS ORDERED: NA CHLORIDE 0.9% 1,000 ML ONE (14:00)
[2024-03-15] MEDS ORDERED: NA CHLORIDE 0.9% 500 ML ONE (14:00)
[2024-03-15 14:10] LABS: Absolute Basophils 0.1 K/uL (0-0.5); Absolute Eosinophils 0.1 K/uL (0-0.5); Absolute Lymphocytes (CBC) 1.3 K/uL (0.7-4.9); Absolute Monocytes 0.8 K/uL (0.1-1.3); Absolute Neutrophil 6.5 K/uL (1.8-8.0); Basophils % 1.1 % (0-1.3); Eosinophils % 0.7 % (0-4.4); Hematocrit 37.7 % (36.0-45.0); Hemoglobin 13.2 g/dL (12.0-15.0); Lymphocytes % 15.3 % (15.3-44.8); MCH 34.1 pg (27.0-35.0); MCHC 34.9 g/dL (32.0-36.0); MCV 97.5 fL (80-100); MPV 7.2 fL (7.6-11.3); Monocytes % 8.9 % (3.3-12.3); Nucleated Red Blood Cells % 0.1 % (0-0); Platelets 265 thou/uL (152-406); RBC Red Blood Cell Count 3.86 M/uL (3.86-4.86); Red Cell Distribution Width 12.8 % (12.1-15.2)
[2024-03-15] MEDS ORDERED: MORPHINE 4 MG/ML SYR ONE (14:55)
[2024-03-15] MEDS ORDERED: dexAMETHasone 10 MG/ML VIAL ONE (14:55)
[2024-03-15] MEDS ORDERED: DIAZEPAM 5 MG TABLET ONE (14:55)
[2024-03-15] MEDS ORDERED: DIPHENHYDRAMINE 50 MG/ML VIAL ONE (14:55)
[2024-03-15 15:49] LABS: PT Prothrombin Time 11.5 SECONDS (9.5-12.5); Protime INR 1.05
--- NOTE | 2024-03-15 16:02 | RAD REPORT ---
EXAM DESCRIPTION: CT - Head C Spine Cap Wo Con - 03/15/2024 3:32 pm CLINICAL HISTORY: Head and neck pain. Chest and abdominal pain. Diarrhea. Breast cancer TECHNIQUE: Computed axial tomography of head, neck, chest, abdomen and pelvis obtained. IV and oral contrast not requested. Coronal and sagittal reconstruction performed. All CT scans are performed using dose optimization technique as appropriate and may include automated exposure control or mA/KV adjustment according to patient size. COMPARISON: [address] chest FINDINGS: An intracranial bleed is not seen. The ventricles are normal in caliber. An extra-axial fluid collection is not noted. Fluid within the sinuses/mastoids is not seen. A cervical fracture is not seen. No dislocation is noted. Mild anterior subluxation C2 on C3 and C3 o n C4 presumably chronic. Mild to moderate spondylosis cervical spine The evaluation of mediastinum, odette, vessels, solid organs and bowel are limited secondary to the lac k of contrast administration. 13 millimeter left lower lobe nodule unchanged. 10 millimeter right lower lobe nodule unchanged Development of a 22 x 14 millimeter opacity right middle lobe. Development of 9 millimeter left lower lobe opacity No pleural effusion No pericardial effusion. No mediastinal or hilar lymphadenopathy visualized. Coronary arterial calcifications Small hepatic lesions are unchanged likely benign Spleen, pancreas, left adrenal gland and kidneys grossly normal 2.6 centimeter right adrenal mass Hounsfield 4 unchanged from 2016 consistent with an adenoma. No fol low-up imaging recommended Tubal ligation clips in place. No adnexal mass. No evidence of diverticulitis. Atherosclerosis mild chronic anterior subluxation L4 on L5. Stable spondylosis IMPRESSION: No acute intracranial abnormality is seen. A cervical fracture is not visualized. If the patient continues to have symptoms to suggest intracran ial/spinal cord/spinal canal pathology MRI be recommended Development of a 9 millimeter left lower lobe and 22 millimeter right middle lobe opacities which are most likely inflammatory or infectious. Neoplasm less likely. Followup CT chest in 3 months recommen ded No acute abnormality abdomen/pelvis
--- NOTE | 2024-03-15 16:05 | RAD REPORT ---
EXAM DESCRIPTION: Rd Single View03/15/2024 2:36 pm CLINICAL HISTORY: Chest pain COMPARISON: 2022 CT chest and March 15, 2024 CT chest FINDINGS: Mild right middle lobe opacity Stable small lung nodules Heart is normal size
[2024-03-15 16:13] LABS: Albumin 3.2 g/dL (3.4-5.0); Anion Gap 7.8 mEq/L (5.0-15.0); Bilirubin Direct 0.3 mg/dL (0-0.2); Bilirubin Indirect, Calculated 0.6 mg/dL (0.2-0.8); Bilirubin Total 0.9 mg/dL (0.2-1.0); Globulin 3.3 g/dL (2.3-3.5); Magnesium 1.4 mg/dL (1.6-2.4); Potassium 2.8 mEq/L (3.5-5.1); Protein, Total 6.5 g/dL (6.4-8.2); Troponin High Sensitivity 7.8 pg/mL (<58.9)
--- NOTE | 2024-03-15 16:33 | ER ---
Nurse's Notes [facility] Name: Monie Dailey Age: 73 yrs Sex: Female : 1950 Arrival Date: 03/15/2024 Time: 13:20 Bed 8 Private MD: Diagnosis: Solitary pulmonary nodule;Pneumonia due to other specified bacteria;Unspecified symptoms and signs involving the musculoskeletal system;Hypokalemia;Hypomagnesemia;Chest pain, unspecified Presentation: 03/15 13:25 Chief complaint: Patient states: Hurting all over since she woke up this morning, nj1 movement makes it worse, nothing makes it better. Pt states she normally deals with diarrhea and her abdomen is sore from having "cramping" yesterday. Denies abdominal cramping at this time. States she came to ED because of the severe pain she is having all over, "head, back, shoulders, arms, chest". 13:25 Coronavirus screen: Vaccine status: Patient reports being unvaccinated. Ebola Screen: nj1 Patient denies travel to an Ebola-affected area in the 21 days before illness onset. Initial Sepsis Screen: Does the patient meet any 2 criteria? No. Patient's initial sepsis screen is negative. Does the patient have a suspected source of infection? No. Patient's initial sepsis screen is negative. Risk Assessment: Do you want to hurt yourself or someone else? Patient reports no desire to harm self or others. Onset of symptoms Onset of symptoms was March 15, 2024. 13:25 Method Of Arrival: Wheelchair nj1 13:25 Acuity: MINGO 3 nj1 Historical: - Allergies: 13:39 Aspirin; nj1 13:39 Codeine; nj1 13:39 Ibuprofen; nj1 13:39 Iodine; nj1 13:39 Latex; nj1 13:39 PENICILLINS; nj1 13:39 teramycin; nj1 13:39 Crab; nj1 - PMHx: 13:39 breast cancer; Hypertension; narcolepsy; neuropathy; nj1 - Immunization history:: Client reports having NOT received the Covid vaccine. - Infectious Disease History:: Denies. - Social history:: Smoking status: Patient/guardian denies using tobacco, but has a distant history of tobacco abuse. - Family history:: not pertinent. Screenin:06 [facility] ED Fall Risk Assessment (Adult) History of falling in the last 3 months, ld1 including since admission No falls in past 3 months (0 pts). Abuse screen: Denies threats or abuse. Denies injuries from another. Nutritional screening: No deficits noted. Tuberculosis screening: No symptoms or risk factors identified. Assessment: 14:06 General: Appears in no apparent distress. uncomfortable, Behavior is cooperative, ld1 anxious. Pain: Complains of pain in back and abdomen Pain does not radiate. Pain currently is 7 out of 10 on a pain scale. Quality of pain is described as throbbing, Pain began suddenly, Is continuous. Neuro: Level of Consciousness is awake, alert, obeys commands, Oriented to person, place, time, situation. Cardiovascular: Capillary refill < 3 seconds Patient's skin is warm and dry. Respiratory: Airway is patent Respiratory effort is even, unlabored. GI: Abdomen is round non-distended, Reports diarrhea. : No signs and/or symptoms were reported regarding the genitourinary system. EENT: No signs and/or symptoms were reported regarding the EENT system. Derm: No signs and/or symptoms reported regarding the dermatologic system. Musculoskeletal: No signs and/or symptoms reported regarding the musculoskeletal system. 15:15 Reassessment: Pt to CT now VIA stretcher. ss 17:00 Reassessment: Patient appears in no apparent distress at this time. No changes from ld1 previously documented assessment. Patient and/or family updated on plan of care and expected duration. Pain level reassessed. 17:53 Reassessment: Applied purewick to patient. ld1 Vital Signs: 13:25 BP 169 / 82; Pulse 76; Resp 18; Temp 98.1(O); Pulse Ox 97% on R/A; Weight 80.74 kg; nj1 Height 5 ft. 5 in. ; Pain 10/10; 14:06 BP 169 / 82; Pulse 80; Resp 18; Pulse Ox 91% on R/A; ld1 15:42 BP 147 / 79; Pulse 83; Resp 17; Pulse Ox 92% on 3 lpm NC; ld1 17:00 Pulse 83; Resp 18; Pulse Ox 98% on 2 lpm NC; ld1 13:25 Body Mass Index 29.62 (80.74 kg, 165.1 cm) [facility] 13:25 Pain Scale: Adult nj1 Rocio Coma Score: 15:01 Eye Response: spontaneous(4). Motor Response: obeys commands(6). Verbal Response: joshua oriented(5). Total: 15. ED Course: 13:23 Patient arrived in ED. ra3 13:25 Deniz Garza MD is Attending Physician. joshua 13:39 Triage completed. nj1 13:40 Arm band placed on left wrist. nj1 14:03 EKG done, by ED staff, reviewed by Deniz Garza MD. jr12 14:06 Patient has correct armband on for positive identification. Placed in gown. Bed in low ld1 position. Call light in reach. Side rails up X2. property assessment monitor on. Client placed on continuous cardiac and pulse oximetry monitoring. NIBP monitoring applied. Pulse ox on. NIBP on. Door closed. Noise minimized. Warm blanket given. 14:06 No provider procedures requiring assistance completed. Inserted saline lock: 22 gauge ld1 in right forearm, using aseptic technique. Blood collected. 14:08 Sherry Head, RN is Primary Nurse. ld1 14:38 XRAY Chest (1 view) In Process Unspecified. EDMS 15:34 CT Traumagram (Head C Spine CAP wo con) In Process Unspecified. EDMS 15:44 Inserted saline lock: 22 gauge in right antecubital area, using aseptic technique. ld1 16:32 Stefan Lockhart is Hospitalizing Provider. joshua 17:02 Lactate w/ 2H reflex if indic. Sent. ld1 17:02 Blood Culture Adult (2) Sent. ld1 19:11 Patient admitted, IV remains in place. km8 Administered Medications: 16:24 Discontinued: ns 0.9% 1000 ml IV at 125 ml/hr continuous joshua 14:05 Drug: Famotidine IVP 20 mg IVP once; dilute with 10 mL 0.9% NaCl; give over 2 minutes ld1 Route: IVP; Site: right forearm; 14:05 Drug: NS 0.9% IV 500 ml IV at bolus once Route: IV; Rate: bolus; Site: right forearm; ld1 14:05 Drug: Ondansetron IVP 4 mg IVP once; over 2 minutes Route: IVP; Site: right forearm; ld1 14:05 Drug: morphine IVP or IV 2 mg IVP once over 4 mins Route: IVP; Infused Over: 4 mins; ld1 Site: right forearm; 14:55 Not Given (Duplicate Order): ovutgzhbricqtfg55.5 mg IVP once joshua 15:16 Drug: NS 0.9% IV 1000 ml IV at 125 ml/hr continuous Route: IV; Rate: 125 ml/hr; Site: ld1 right antecubital; 15:16 Drug: Decadron - Dexamethasone IVP 10 mg IVP once Route: IVP; Site: right antecubital; ld1 15:16 Drug: Diazepam PO 10 mg PO once Route: PO; ld1 17:01 Drug: Potassium PO Effervescent Tablet 50 mEq PO once; dissolve in 4 ounces of water or ld1 juice Route: PO; 17:01 Drug: Enoxaparin Sub-Q 1 mg/kg Sub-Q once Route: Sub-Q; Site: left lower abdomen; ld1 17:02 Not Given (Duplicate Order): potassiumeffervescent tablet 50 meq PO once; dissolve in 4 ld1 ounces of water or juice GIVE 1HOUR AFTER 1ST 17:36 Drug: Potassium Chloride IV 20 mEq IV at per protocol once; administer over 1-2 hours ld1 Route: IV; Rate: per protocol; Site: right antecubital; 17:36 Drug: NS 0.9% with KCl IV 20 mEq/L 1000 ml IV at 125 ml/hr continuous Route: IV; Rate: ld1 125 ml/hr; Site: right antecubital; 17:36 Drug: Magnesium Sulfate IVPB 2 grams IVPB once over 2 hrs Route: IVPB; Infused Over: 2 ld1 hrs; Site: right antecubital; 17:36 Drug: levofloxacin IVPB 500 mg 100 ml IVPB once over 60 mins Volume: 100 ml; Route: ld1 IVPB; Infused Over: 60 mins; Site: left forearm; 17:37 Not Given (Other Intervention Used): morphineor iv 4 mg IVP once over 4 mins ld1 Medication: 14:06 VIS not applicable for this client. ld1 Outcome: 16:33 Decision to Hospitalize by Provider. [facility] 19:11 Admitted to Med/surg km8 19:11 Condition: unchanged 19:11 Instructed on the need for admit, 19:11 Patient left the ED. km8 Signatures: Dispatcher [employer] Deniz Dixon MD MD cha Blanchard, Shelby, RN RN ss Sherry Head, RN RN ld1 Lexi Kelley, RN RN nj1 Rosemary, Joselyn jr12 Aundrea Pabon, RN RN km8 Laura Lo ra3
--- NOTE | 2024-03-15 16:33 | EDPHYS ---
Physician Documentation [facility] Name: Monie Dailey Age: 73 yrs Sex: Female : 1950 Arrival Date: 03/15/2024 Time: 13:20 Bed 8 Private MD: Deniz Rowan HPI: 03/15 14:55 This 73 yrs old Female presents to ER via Wheelchair with complaints of Hurts joshua All Over, stomach cramping, [place], NECK AND UPPER BACK PAIN. 14:55 The patient complains of pain to the top of head, left frontal area, left side of the joshua back of head, left occipital area, left base of the skull, right frontal area, right side of the back of head, right occipital area and right base of the skull. The patient describes the headache as aching. Onset: The symptoms/episode began/occurred yesterday. The patient presents with abdominal pain in the upper abdomen, in the lower abdomen. The patient presents with pain that is acute, and decreased range of motion. The symptoms are located in the left trapezius, right trapezius, left scapular area, right scapular area, left subscapular area, right subscapular area and thoracic area. Onset: The symptoms/episode began/occurred yesterday. The pain does not radiate. Associated signs and symptoms: Pertinent positives: chest pain, nausea, weakness. Modifying factors: The patient symptoms are alleviated by remaining still, the patient symptoms are aggravated by any movement, bending, coughing, lifting, movement, standing. CUT HAIR YESTERDAY, ABD PAIN , TODAY [place], POSTERIOR NECK PAIN, UPPER BACK PAIN, SEVERE. Severity of symptoms: At their worst the symptoms were moderate, in the emergency department the symptoms are actually worse. Severity of symptoms: At its worst the pain was mild, moderate, in the emergency department the pain is unchanged. Historical: - Allergies: 13:39 Aspirin; nj1 13:39 Codeine; nj1 13:39 Ibuprofen; nj1 13:39 Iodine; nj1 13:39 Latex; nj1 13:39 PENICILLINS; nj1 13:39 teramycin; nj1 13:39 Crab; nj1 - PMHx: 13:39 breast cancer; Hypertension; narcolepsy; neuropathy; nj1 - Immunization history:: Client reports having NOT received the Covid vaccine. - Infectious Disease History:: Denies. - Social history:: Smoking status: Patient/guardian denies using tobacco, but has a distant history of tobacco abuse. - Family history:: not pertinent. ROS: 14:58 Constitutional: Negative for fever, chills, and weight loss, Eyes: Negative for injury, joshua pain, redness, and discharge, ENT: Negative for injury, pain, and discharge, Cardiovascular: Negative for chest pain, palpitations, and edema, Respiratory: Negative for shortness of breath, cough, wheezing, and pleuritic chest pain, : Negative for injury, bleeding, discharge, and swelling, MS/Extremity: Negative for injury and deformity, Skin: Negative for injury, rash, and discoloration, Neuro: Negative for headache, weakness, numbness, tingling, and seizure, Psych: Negative for depression, anxiety, suicide ideation, homicidal ideation, and hallucinations, Allergy/Immunology: Negative for hives, rash, and allergies, Endocrine: Negative for neck swelling, polydipsia, polyuria, polyphagia, and marked weight changes, Hematologic/Lymphatic: Negative for swollen nodes, abnormal bleeding, and unusual bruising, 14:58 Neck: Positive for pain with movement, pain at rest, tenderness, 14:58 Cardiovascular: Positive for chest pain, of the chest, 14:58 Respiratory: Negative for cough, shortness of breath, 14:58 Abdomen/GI: Positive for abdominal pain, of the right upper quadrant and left upper quadrant, 14:58 Back: Positive for decreased range of motion, pain at rest, pain with movement, of the left trapezius, right trapezius, left scapular area, right scapular area and thoracic area, 14:58 Skin: Negative for rash, 14:58 Neuro: Positive for headache, Exam: 14:58 Constitutional: This is a well developed, well nourished patient who is awake, alert, joshua and in no acute distress. Eyes: Pupils equal round and reactive to light, extra-ocular motions intact. Lids and lashes normal. Conjunctiva and sclera are non-icteric and not injected. Cornea within normal limits. Periorbital areas with no swelling, redness, or edema. ENT: Nares patent. No nasal discharge, no septal abnormalities noted. Tympanic membranes are normal and external auditory canals are clear. Oropharynx with no redness, swelling, or masses, exudates, or evidence of obstruction, uvula midline. Mucous membranes moist. Neck: Trachea midline, no thyromegaly or masses palpated, and no cervical lymphadenopathy. Supple, full range of motion without nuchal rigidity, or vertebral point tenderness. No Meningismus. Cardiovascular: Regular rate and rhythm with a normal S1 and S2. No gallops, murmurs, or rubs. Normal PMI, no JVD. No pulse deficits. Respiratory: Lungs have equal breath sounds bilaterally, clear to auscultation and percussion. No rales, rhonchi or wheezes noted. No increased work of breathing, no retractions or nasal flaring. Female : Normal external genitalia. Skin: Warm, dry with normal turgor. Normal color with no rashes, no lesions, and no evidence of cellulitis. MS/ Extremity: Pulses equal, no cyanosis. Neurovascular intact. Full, normal range of motion. Neuro: Awake and alert, GCS 15, oriented to person, place, time, and situation. Cranial nerves II-XII grossly intact. Motor strength 5/5 in all extremities. Sensory grossly intact. Cerebellar exam normal. Normal gait. Psych: Awake, alert, with orientation to person, place and time. Behavior, mood, and affect are within normal limits. 14:58 Neck: External neck: is normal, ROM/movement: limited range of motion, that is mild, that is moderate, in any direction, Meningeal signs: are not present, nuchal rigidity, is not appreciated, 14:58 ECG was reviewed by the Attending Physician. 15:06 ECG was reviewed by the Attending Physician. [facility] Vital Signs: 13:25 BP 169 / 82; Pulse 76; Resp 18; Temp 98.1(O); Pulse Ox 97% on R/A; Weight 80.74 kg; nj1 Height 5 ft. 5 in. ; Pain 10/10; 14:06 BP 169 / 82; Pulse 80; Resp 18; Pulse Ox 91% on R/A; ld1 15:42 BP 147 / 79; Pulse 83; Resp 17; Pulse Ox 92% on 3 lpm NC; ld1 17:00 Pulse 83; Resp 18; Pulse Ox 98% on 2 lpm NC; ld1 13:25 Body Mass Index 29.62 (80.74 kg, 165.1 cm) [facility] 13:25 Pain Scale: Adult nj1 Rocio Coma Score: 15:01 Eye Response: spontaneous(4). Motor Response: obeys commands(6). Verbal Response: joshua oriented(5). Total: 15. MDM: 13:25 Patient medically screened. joshua 15:01 Differential diagnosis: chronic back pain, Fatigue Fracture Hydronephrosis Leaking joshua Aortic Aneurysm Obesity Osteomyelitis Peptic Ulcer Perforated Ulcer Pyelonephritis Renal Infarction ruptured disc, Scoliosis spinal injury, sprain, Ureterolithiasis bowel obstruction, Cholelithiasis, diverticulitis, gastritis, Mesenteric ischemia or infarction, non-specific abd pain, pancreatitis, Peptic Ulcer Disease, Perf. Duodenal Ulcer, Peritonitis, Ureterolithiasis, urinary tract infection, vertebral fracture. Differential Diagnosis altered mental status, sepsis, flu. Data reviewed: vital signs, nurses notes, lab test result(s), EKG, radiologic studies, CT scan, plain films. Consideration of Admission/Observation Escalation of care including admission/observation considered. I considered the following discharge prescriptions or medication management in the emergency department Medications were administered in the Emergency Department. See MAR. Independent interpretation of the following test(s) in the Emergency Department EKG: See my EKG interpretation above. Test considered but Not performed: Ultrasound NO ABD USG. Care significantly affected by the following chronic conditions: Hypertension, Cancer, NARCOLEPSY, NEUROPATHY. 03/15 13:27 Order name: Basic Metabolic Panel; Complete Time: 16:23 [facility] 03/15 13:27 Order name: CBC with Diff; Complete Time: 14:37 joshua 03/15 13:27 Order name: LFT's; Complete Time: 16:23 joshua 03/15 13:27 Order name: Magnesium; Complete Time: 16:23 joshua 03/15 13:27 Order name: NT PRO-BNP; Complete Time: 16:23 joshua 03/15 13:27 Order name: PT-INR; Complete Time: 16:23 joshua 03/15 13:27 Order name: Troponin HS; Complete Time: 16:23 joshua 03/15 13:27 Order name: Lipase; Complete Time: 16:23 [facility] 03/15 16:24 Order name: Phosphorus [facility] 03/15 16:30 Order name: Blood Culture Adult (2) [facility] 03/15 16:30 Order name: Lactate w/ 2H reflex if indic. [facility] 03/15 13:27 Order name: XRAY Chest (1 view); Complete Time: 16:23 [facility] 03/15 14:52 Order name: CT Traumagram (Head C Spine CAP wo con) [facility] 03/15 14:53 Order name: EKG; Complete Time: 14:53 joshua 03/15 13:27 Order name: Cardiac monitoring; Complete Time: 14:03 joshua 03/15 13:27 Order name: EKG - Nurse/Tech; Complete Time: 14:03 joshua 03/15 13:27 Order name: IV Saline Lock; Complete Time: 13:58 joshua 03/15 13:27 Order name: Labs collected and sent; Complete Time: 13:58 joshua 03/15 13:27 Order name: O2 Per Protocol; Complete Time: 13:31 joshua 03/15 13:27 Order name: O2 Sat Monitoring; Complete Time: 13:31 joshua 03/15 14:15 Order name: Labs - recollect needed: green blue; Complete Time: 15:16 03/15 14:53 Order name: EKG - Nurse/Tech; Complete Time: 15:16 joshua 03/15 14:54 Order name: Bilateral blood pressure; Complete Time: 15:41 joshua 03/15 15:25 Order name: IV Saline Lock - Large Bore; Complete Time: 15:41 joshua EC:58 Rate is 78 beats/min. Rhythm is regular. QRS [place] is Normal. VA interval is normal. QRS joshua interval is normal. QT interval is normal. No Q waves. T waves are Normal. Clinical impression: NSR w/ Non-specific ST/T Changes and No evidence of ischemia. Interpreted by me. Reviewed by me. 15:06 Rate is 85 beats/min. Rhythm is regular. QRS [place] is Normal. VA interval is normal. QRS joshua interval is normal. QT interval is prolonged at 502 msec. No Q waves. T waves are Normal. No ST changes noted. Clinical impression: NSR w/ Non-specific ST/T Changes, LVH, and No evidence of ischemia. Interpreted by me. Reviewed by me. Administered Medications: 16:24 Discontinued: ns 0.9% 1000 ml IV at 125 ml/hr continuous joshua 14:05 Drug: Famotidine IVP 20 mg IVP once; dilute with 10 mL 0.9% NaCl; give over 2 minutes ld1 Route: IVP; Site: right forearm; 14:05 Drug: NS 0.9% IV 500 ml IV at bolus once Route: IV; Rate: bolus; Site: right forearm; ld1 14:05 Drug: Ondansetron IVP 4 mg IVP once; over 2 minutes Route: IVP; Site: right forearm; ld1 14:05 Drug: morphine IVP or IV 2 mg IVP once over 4 mins Route: IVP; Infused Over: 4 mins; ld1 Site: right forearm; 14:55 Not Given (Duplicate Order): yjyffwlgpdicrhl82.5 mg IVP once joshua 15:16 Drug: NS 0.9% IV 1000 ml IV at 125 ml/hr continuous Route: IV; Rate: 125 ml/hr; Site: ld1 right antecubital; 15:16 Drug: Decadron - Dexamethasone IVP 10 mg IVP once Route: IVP; Site: right antecubital; ld1 15:16 Drug: Diazepam PO 10 mg PO once Route: PO; ld1 17:01 Drug: Potassium PO Effervescent Tablet 50 mEq PO once; dissolve in 4 ounces of water or ld1 juice Route: PO; 17:01 Drug: Enoxaparin Sub-Q 1 mg/kg Sub-Q once Route: Sub-Q; Site: left lower abdomen; ld1 17:02 Not Given (Duplicate Order): potassiumeffervescent tablet 50 meq PO once; dissolve in 4 ld1 ounces of water or juice GIVE 1HOUR AFTER 1ST 17:36 Drug: Potassium Chloride IV 20 mEq IV at per protocol once; administer over 1-2 hours ld1 Route: IV; Rate: per protocol; Site: right antecubital; 17:36 Drug: NS 0.9% with KCl IV 20 mEq/L 1000 ml IV at 125 ml/hr continuous Route: IV; Rate: ld1 125 ml/hr; Site: right antecubital; 17:36 Drug: Magnesium Sulfate IVPB 2 grams IVPB once over 2 hrs Route: IVPB; Infused Over: 2 ld1 hrs; Site: right antecubital; 17:36 Drug: levofloxacin IVPB 500 mg 100 ml IVPB once over 60 mins Volume: 100 ml; Route: ld1 IVPB; Infused Over: 60 mins; Site: left forearm; 17:37 Not Given (Other Intervention Used): morphineor iv 4 mg IVP once over 4 mins ld1 Disposition Summary: 03/15/24 16:33 Hospitalization Ordered Notes: Hospitalization Status: Inpatient Admission joshua Provider: Stefan Lockhart cha Location: Telemetry/MedSurg (observation) joshua Condition: Fair joshua Problem: new joshua Symptoms: have improved joshua Bed/Room Type: Standard [facility] Room Assignment: 222(03/15/24 18:07) sp Diagnosis - Solitary pulmonary nodule joshua - Pneumonia due to other specified bacteria joshua - Unspecified symptoms and signs involving the musculoskeletal system joshua - Hypokalemia joshua - Hypomagnesemia joshua - Chest pain, unspecified joshua Forms: - Medication Reconciliation Form joshua - SBAR form joshua - Leadership Thank You Letter joshua Signatures: Dispatcher [employer] EDMS Deniz Garza MD MD cha Pinkerton, Shawna sp Sims, Lauren, SUMANTH RN ld1 Lexi Kelley RN RN nj1 Corrections: (The following items were deleted from the chart) 13:27 13:27 BASIC METABOLIC PANEL+C.LAB.BRZ ordered. EDMS EDMS 13:27 13:27 CBC+H.LAB.BRZ ordered. EDMS EDMS 13:27 13:27 HEPATIC FUNCTION+C.LAB.BRZ ordered. EDMS EDMS 13:27 13:27 MAGNESIUM+C.LAB.BRZ ordered. EDMS EDMS 13:27 13:27 PROBNP+C.LAB.BRZ ordered. EDMS EDMS 13:27 13:27 PROTIME (+INR)+COAG.LAB.BRZ ordered. EDMS EDMS 13:27 13:27 Troponin High Sensitivity+C.LAB.BRZ ordered. EDMS EDMS 13:27 13:27 LIPASE+C.LAB.BRZ ordered. EDMS EDMS 13:27 13:27 Chest Single View+RAD.RAD.BRZ ordered. EDMS EDMS 13:27 13:27 Abdomen Pelvis W Con+CT.RAD.BRZ ordered. EDMS EDMS 14:59 14:43 Head C Spine CAP W Con+CT.RAD.BRZ ordered. EDMS EDMS 16:25 16:25 PHOSPHORUS+C.LAB.BRZ ordered. EDMS EDMS 16:30 16:30 BLOOD CULTURE*+BA.LAB.BRZ ordered. EDMS EDMS 16:30 16:30 LACTATE+C.LAB.BRZ ordered. EDMS EDMS 18:07 16:33 joshua sp
[2024-03-15] MEDS ORDERED: ENOXAPARIN 80 MG/0.8 ML SQ ONE (16:41)
[2024-03-15] MEDS ORDERED: Levofloxacin500mg IV 500 MG/100 ML BAG IV ONE (16:41)
[2024-03-15] MEDS ORDERED: POTASSIUM 25 MEQ EFFERV TAB ONE (16:41)
[2024-03-15] MEDS ORDERED: NS KCL 20MEQ 0 ML IV ONE (16:41)
[2024-03-15] MEDS ORDERED: Magnesium Sulfate 2gm IVPB 2 G/50 ML BAG IV ONE (16:42)
[2024-03-15] MEDS ORDERED: KCL 20 MEQ/100 mL IVPB 100 ML IV ONE (16:42)
[2024-03-15] MEDS ORDERED: NS KCL 20MEQ 1,000 ML IV ONE (16:43)
--- NOTE | 2024-03-15 17:18 | P.HP ---
Certification for Inpatient Patient admitted to: Inpatient With expected LOS: >2 Midnights Patient will require the following post-hospital care: None Practitioner: I am a practitioner with admitting privileges, knowledge of patient current condition, hospital course, and medical plan of care. Services: Services provided to patient in accordance with Admission requirements found in Title 42 Section 412.3 of the Code of Federal Regulations Patient History Date of Service: 03/15/24 Reason for admission: Pneumonia, hypokalemia, hypomagnesemia History of Present Illness: 73-year-old female with history of hypertension, neuropathy, narcolepsy presents emergency department chief complaint of bodyaches, abdominal cramping. She reports she deals with chronic diarrhea but had some significant abdominal cramping yesterday and is dealing with generalized bodyaches, neck pain today. She also does admit to increasing cough last couple of days. She was evaluated in the emergency department her labs are significant for hypokalemia with a potassium of 2.8 hypomagnesemia with a magnesium of 1.4 white blood cell count within normal limits CT head/C-spine/chest/abdomen/pelvis was performed which showed development of a 9 mm left lower lobe and 22 mm right upper lobe opacities which are most likely inflammatory or infectious, neoplasm less likely. Given significant hypokalemia, hypomagnesemia and suspected pneumonia ED read wishes to admit for further evaluation and management. Allergies aspirin Allergy (Verified 10/21/15 11:48) tinnitus codeine Allergy (Verified 10/21/15 11:48) severe headache ibuprofen Allergy (Verified 10/21/15 11:48) tinnitus Iodinated Contrast Media [Iodinated Contrast Media - IV Dye] Allergy (Verified 10/21/15 11:48) blisters latex Allergy (Verified 08/22/15 10:44) Rash Penicillins Allergy (Verified 10/21/15 11:48) Itching/Hives/Rash teramycin Allergy (Unknown, Uncoded 10/21/15 11:48) unknown Latex, Na Allergy (Uncoded 03/30/17 00:25) Unknown Home Medications: Methylphenidate HCl [Ritalin] 20 mg PO BID 08/22/15 Sertraline [Zoloft] 50 mg PO DAILY 08/22/15 Tramadol HCl [Ultram] 1 tab PO TID 08/22/15 Amlodipine [Norvasc] 5 mg PO DAILY 10/21/15 Gabapentin [Neurontin] 300 mg PO BID 10/21/15 Lansoprazole [Prevacid] 30 mg PO DAILY 10/21/15 Losartan Potassium [Cozaar] 25 mg PO DAILY 10/21/15 - Past Medical/Surgical History -: Hypertension -: Neuropathy -: Narcolepsy -: Tonsillectomy Psychosocial/ Personal History: Lives at home alone - Family History Sister -: Cancer - Social History Place of Residence: Home Review of Systems 10-point ROS is otherwise unremarkable Respiratory: Cough Gastrointestinal: Diarrhea Genitourinary: Frequency, Urgency Musculoskeletal: Other (Generalized body aches/pain) Physical Examination - Physical Exam General: Alert, In no apparent distress, Oriented x3 HEENT: Atraumatic, PERRLA, EOMI Neck: Supple, 2+ carotid pulse no bruit, No LAD Respiratory: Clear to auscultation bilaterally, Normal air movement Cardiovascular: Regular rate/rhythm, Normal S1 S2 Gastrointestinal: Normal bowel sounds, No tenderness Musculoskeletal: No tenderness Integumentary: No rashes Neurological: Normal gait, Normal speech, Normal strength at 5/5 x4 extr, Normal tone - Studies Laboratory Data (last 24 hrs) 03/15/24 03/15/24 03/15/24 15:11 15:11 13:55 WBC 8.80 Hgb 13.2 Hct 37.7 Plt Count 265 PT 11.5 INR 1.05 Sodium 138 Potassium 2.8 L BUN 7 Creatinine 0.62 Glucose 97 Magnesium 1.4 L Total Bilirubin 0.9 AST 12 L ALT 16 Alkaline Phosphatase 85 Lipase 26 Assessment and Plan - Plan Assessment: Community-acquired pneumonia Hypokalemia Hypomagnesemia Hypertension Narcolepsy Neuropathy Plan: Community-acquired pneumonia Continue antibioticsLevaquin Supplemental oxygen as needed Blood cultures obtained in ED, white blood cells are normal in its Daily CBC, monitor for fevers Hypokalemia Hypomagnesemia Replaced in ED, protocol in place Hypertension Narcolepsy Neuropathy Restart home medications once verified DVT PPX: Lovenox Code status: Full Discharge Plan: Home Plan to discharge in: 48 Hours - Advance Directives Does patient have a Living Will: No Does patient have a Durable POA for Healthcare: No - Code Status/Comfort Care Code Status Assessed: Yes (Full code) Critical Care: No Time Spent Managing Pts Care (In Minutes): 70
[2024-03-15] MEDS ORDERED: ACETAMINOPHEN 500 MG TAB PO PRN (19:24)
[2024-03-15] MEDS: NA CHLORIDE 0.9% 1,000 ML IV SCH (19:24)
[2024-03-15] MEDS ORDERED: MORPHINE 2 MG/ML SYR IV PRN (19:24)
[2024-03-15 20:26] VITALS: BMI 30.1
[2024-03-15] MEDS: CYCLOBENZAPRINE 10 MG TAB PO PRN (21:41)
[2024-03-15] MEDS: lisinopriL 20 MG TAB PO SCH (22:30)
[2024-03-15] MEDS: METOPROLOL TAR 50 MG TAB PO SCH (22:31)
[2024-03-16 03:33] LABS: Absolute Lymphocytes (CBC) 0.8 K/uL (0.7-4.9); Absolute Monocytes 0.3 K/uL (0.1-1.3); Basophils % 0.3 % (0-1.3); Hematocrit 33.7 % (36.0-45.0); Lymphocytes % 15.7 % (15.3-44.8); MCH 34.9 pg (27.0-35.0); MCHC 35.7 g/dL (32.0-36.0); MCV 97.7 fL (80-100); MPV 7.5 fL (7.6-11.3); Monocytes % 5.9 % (3.3-12.3); Neutrophils % 78.1 % (41.7-73.7); Nucleated Red Blood Cells % 0.1 % (0-0); Platelets 276 thou/uL (152-406); RBC Red Blood Cell Count 3.45 M/uL (3.86-4.86)
[2024-03-16 03:51] LABS: Anion Gap 6.7 mEq/L (5.0-15.0); Magnesium 1.9 mg/dL (1.6-2.4); Potassium 4.7 mEq/L (3.5-5.1); Thyroid Stimulating Hormone 0.197 uIU/mL (0.358-3.740)
[2024-03-16 03:59] LABS: Phosphorus 1.4 mg/dL (2.5-4.9)
[2024-03-16] MEDS: POTASS/SODIUM PHOSPHATE 1 PKT POWD.PACK PO SCH (05:30)
[2024-03-16] MEDS: PANTOPRAZOLE 40MG TABLET PO SCH (07:44)
[2024-03-16] MEDS: METHYLPHENIDATE HCL 10 MG PO SCH (09:00)
--- NOTE | 2024-03-16 09:19 | P.PN ---
Date of Service: 03/16/24 Subjective: Feeling much better today tolerating room air ROS: 10 point ROS as noted above, otherwise negative Physical exam GEN: Alert, oriented, NAD HEENT: Normal conjunctiva, sclera anicteric CV: Regular rate and rhythm, no edema Pulm: Nonlabored respirations on room air ABD: Soft, nontender, nondistended MSK: No joint tenderness Integumentary: No rashes Neuro: Normal speech, normal affect Vitals reviewed Assessment: Community-acquired pneumonia Hypokalemia Hypomagnesemia Hypophosphatemia Hypertension Narcolepsy Neuropathy Plan: Community-acquired pneumonia Continue antibioticsLevaquin Supplemental oxygen as needed Blood cultures obtained in ED, white blood cells WNL Daily CBC, no fevers thus far Discussed recommendation for repeat CT chest in 3 months to evaluate for resolution/eval pulmonary nodules Hypokalemia Hypomagnesemia Replaced in ED, protocol in place improved Hypophosphatemia Protocol in place Replaced today Hypertension Narcolepsy Neuropathy Restart home medications once verified DVT PPX: Lovenox Code status: Full Discharge Plan: Home Plan to discharge in: 24 hours Time Spent Managing Pts Care (In Minutes): 35 <Chito Scanlon - Last Filed: 03/16/24 09:19> Patient seen and examined. Plan of care discussed with Chito Scanlon. Patient with a history of narcolepsy presenting with generalized weakness and myalgia. Patient also report recent intermittent diarrhea. Electrolyte deficiency-potassium, magnesium and phosphate likely related to the ongoing diarrhea. Low TSH indicating hyperthyroid state but normal free T4. Repeat TSH. Outpatient workup if hyperthyroidism confirmed <kristi fuller - Last Filed: 03/16/24 18:54>
[2024-03-16] MEDS: Levofloxacin 750mg IV 750 MG/150 ML BAG IV SCH (09:41)
[2024-03-16] MEDS: ENOXAPARIN 40 MG/0.4 ML SQ SCH (09:41)
[2024-03-16] MEDS: BUPROPION HCL XL 150 MG TAB PO SCH (09:44)
--- NOTE | 2024-03-16 14:40 | EKG ---
Test Date: 2024-03-15 Test Time: 15:02:56 Criminal Investigator: ZULEYKA MEASUREMENT RESULTS: Intervals: Rate: 85 RI: 168 QRSD: 88 QT: 422 QTc: 502 [place]: P: 26 RI: 168 QRS: -22 T: 23 INTERPRETIVE STATEMENTS: Sinus rhythm with occasional premature ventricular complexes and premature atrial complexes Voltage criteria for left ventricular hypertrophy Prolonged QT Abnormal ECG Compared to ECG 03/15/2024 14:00:06 Ventricular premature complex(es) now present Left ventricular hypertrophy now present Prolonged QT interval now present Electronically Signed On 03-16-24 14:37:50 CDT by Ricky Walker
--- NOTE | 2024-03-16 14:40 | EKG ---
Test Date: 2024-03-15 Test Time: 14:00:06 Sleep Manager: ZULEYKA MEASUREMENT RESULTS: Intervals: Rate: 78 NC: 184 QRSD: 90 QT: 428 QTc: 487 [place]: P: 39 NC: 184 QRS: -14 T: 34 INTERPRETIVE STATEMENTS: Sinus rhythm with premature atrial complexes Otherwise normal ECG Compared to ECG 09/10/2020 23:12:52 Atrial premature complex(es) now present Sinus bradycardia no longer present Electronically Signed On 03-16-24 14:37:54 CDT by Ricky Walker
[2024-03-17] MEDS: MORPHINE 4 MG/ML SYR IV PRN (02:32)
[2024-03-17 04:13] VITALS: O2SAT 98
[2024-03-17 07:02] LABS: Absolute Eosinophils 0.1 K/uL (0-0.5); Absolute Lymphocytes (CBC) 1.4 K/uL (0.7-4.9); Absolute Monocytes 0.4 K/uL (0.1-1.3); Absolute Neutrophil 3.6 K/uL (1.8-8.0); Basophils % 0.6 % (0-1.3); Eosinophils % 1.1 % (0-4.4); Hematocrit 30.3 % (36.0-45.0); Hemoglobin 10.8 g/dL (12.0-15.0); Lymphocytes % 24.8 % (15.3-44.8); MCH 35.1 pg (27.0-35.0); MCHC 35.5 g/dL (32.0-36.0); MCV 98.8 fL (80-100); MPV 7.2 fL (7.6-11.3); Monocytes % 7.8 % (3.3-12.3); Neutrophils % 65.7 % (41.7-73.7); Nucleated Red Blood Cells % 0.1 % (0-0); Platelets 248 thou/uL (152-406); RBC Red Blood Cell Count 3.07 M/uL (3.86-4.86)
[2024-03-17 07:27] LABS: Anion Gap 3.6 mEq/L (5.0-15.0); Magnesium 1.6 mg/dL (1.6-2.4); Phosphorus 1.9 mg/dL (2.5-4.9); Potassium 3.6 mEq/L (3.5-5.1); Thyroid Stimulating Hormone 2.08 uIU/mL (0.358-3.740)
[2024-03-17 08:55] VITALS: BP 134/62; TEMP 97
--- NOTE | 2024-03-17 12:04 | P.DS ---
Admission Date: 03/15/24 Discharge Date: 03/17/24 Disposition: ROUTINE DISCHARGE Discharge Condition: GOOD Reason for Admission: Pneumonia, hypokalemia, hypomagnesemia Brief History of Present Illness: 73-year-old female with history of hypertension, neuropathy, narcolepsy presents emergency department chief complaint of bodyaches, abdominal cramping. She reports she deals with chronic diarrhea but had some significant abdominal c ramping yesterday and is dealing with generalized bodyaches, neck pain today. She also does admit to increasing cough last couple of days. She was evaluated in the emergency department her labs are significant for hypokalemia with a potassium of 2.8 hypomagnesemia with a magnesium of 1.4 white blood cell count within normal limits CT head/C-spine/chest/abdomen/pelvis was performed which showed development of a 9 mm left lower lobe and 22 mm right upper lobe opacities which are most likely inflammatory or infectious, neoplasm less likely. Given significant hypokalemia, hypomagnesemia and suspected pneumonia ED read wishes to admit for further evaluation and management. Hospital Course: Assessment: Community-acquired pneumonia Hypokalemia Hypomagnesemia Hypophosphatemia Hypertension Narcolepsy Neuropathy Patient presented to the emergency department with chief complaint of bodyaches, neck pain. She reports that she deals with diarrhea relatively frequently. She was evaluated in the emergency department and found to have significant hypokalemia with a potassium of 2.8, hypomagnesemia with a magnesium of 1.4. She had a CT scan performed which revealed development of a 9 mm left lower lobe and 22 mm right middle lobe opacity which are most likely inflammatory or infectious. Patient was treated with IV Levaquin for suspected pneumonia, electrolytes were replaced. She has been without diarrhea for the last 24 hours, she is breathing well on room air and stable for discharge at this time. Prescription for levofloxacin 750 mg by mouth once daily sent to the pharmacy, please start taking this medication on 03/18/2024 as you have already received a dose today. Continue other home medications as prescribed. Regarding your CT scan and the findings of 9 mm left lower lobe and 22 mm right middle lobe opacities, radiology believes these are most likely inflammatory or infectious, take the Levaquin as prescribed. We recommend you obtain a CT scan in 3 months to reevaluate for resolution and to rule out neoplasm. Please follow-up with your primary care doctor 1 to 2 weeks Vital Signs/Physical Exam: Temp Pulse Resp BP Pulse Ox 97 F 59 15 134/62 92 03/17/24 08:00 03/17/24 08:48 03/17/24 08:00 03/17/24 08:48 03/17/24 08:00 General: Alert, In no apparent distress, Oriented x3 HEENT: Atraumatic, PERRLA Neck: Supple, JVD not distended Respiratory: Clear to auscultation bilaterally, Normal air movement Cardiovascular: Regular rate/rhythm, Normal S1 S2 Gastrointestinal: Normal bowel sounds, No tenderness Musculoskeletal: No tenderness Integumentary: No rashes Neurological: Normal speech, Normal tone Laboratory Data at Discharge: WBC 5.40 thou/uL (4.3-10.9) 03/17/24 06:34 Hgb 10.8 g/dL (12.0-15.0) L 03/17/24 06:34 Hct 30.3 % (36.0-45.0) L 03/17/24 06:34 Plt Count 248 thou/uL (152-406) 03/17/24 06:34 PT 11.5 SECONDS (9.5-12.5) 03/15/24 15:11 INR 1.05 03/15/24 15:11 Sodium 142 mEq/L (136-145) 03/17/24 06:34 Potassium 3.6 mEq/L (3.5-5.1) 03/17/24 06:34 BUN 11 mg/dL (7-18) 03/17/24 06:34 Creatinine 0.61 mg/dL (0.55-1.02) 03/17/24 06:34 Glucose 97 mg/dL (74-106) 03/17/24 06:34 Phosphorus 1.9 mg/dL (2.5-4.9) L 03/17/24 06:34 Magnesium 1.6 mg/dL (1.6-2.4) 03/17/24 06:34 Total Bilirubin 0.9 mg/dL (0.2-1.0) 03/15/24 15:11 AST 12 U/L (15-37) L 03/15/24 15:11 ALT 16 U/L (13-56) 03/15/24 15:11 Alkaline Phosphatase 85 U/L (45-117) 03/15/24 15:11 Lipase 26 U/L (13-75) 03/15/24 15:11 Home Medications: Evolocumab [Repatha Pushtronex] 3.5 ml SQ SEECOM 03/15/24 Lemborexant [Dayvigo] 10 mg PO BEDTIME 03/15/24 Lisinopril [Zestril] 20 mg PO DAILY 03/15/24 Methylphenidate HCl [Ritalin] 10 mg PO TID 03/15/24 Metoprolol Tartrate [Lopressor*] 50 mg PO BID 03/15/24 Pantoprazole [Protonix Tab*] 40 mg PO DAILY 03/15/24 buPROPion HCL [Bupropion Xl] 150 mg PO DAILY 03/15/24 levoFLOXacin [Levaquin*] 750 mg PO DAILY 4 Days #4 tab 03/17/24 New Medications: levoFLOXacin [Levaquin*] 750 mg PO DAILY 4 Days #4 tab Physician Discharge Instructions: Patient presented to the emergency department with chief complaint of bodyaches, neck pain. She reports that she deals with diarrhea relatively frequently. She was evaluated in the emergency department and found to have significant hypokalemia with a potassium of 2.8, hypomagnesemia with a magnesium of 1.4. She had a CT scan performed which revealed development of a 9 mm left lower lobe and 22 mm right middle lobe opacity which are most likely inflammatory or infectious. Patient was treated with IV Levaquin for suspected pneumonia, electrolytes were replaced. She has been without diarrhea for the last 24 hours, she is breathing well on room air and stable for discharge at this time. Prescription for levofloxacin 750 mg by mouth once daily sent to the pharmacy, please start taking this medication on 03/18/2024 as you have already received a dose today. Continue other home medications as prescribed. Regarding your CT scan and the findings of 9 mm left lower lobe and 22 mm right middle lobe opacities, radiology believes these are most likely inflammatory or infectious, take the Levaquin as prescribed. We recommend you obtain a CT scan in 3 months to reevaluate for resolution and to rule out neoplasm. Please follow-up with your primary care doctor 1 to 2 weeks Followup: Mariel Hidalgo MD [Primary Care Provider] - Time spent managing pt's care (in minutes): 35
== END 2024-03-17 10:48 | disposition home or self-care (01) | DRG 195 ==
LOC: ER 13:20 → ERHOLD 17:18 → 2ND 18:59
PROVIDERS: ADMIT Internal Medicine; ATTEND Hospitalist
DX: J18.9 Pneumonia, unspecified organism (principal); E87.6 Hypokalemia; E83.42 Hypomagnesemia; G62.9 Polyneuropathy, unspecified; I10 Essential (primary) hypertension; G47.419 Narcolepsy without cataplexy; E83.39 Other disorders of phosphorus metabolism; K52.9 Noninfective gastroenteritis and colitis, unspecified; R91.1 Solitary pulmonary nodule; Z88.0 Allergy status to penicillin; Z88.5 Allergy status to narcotic agent; Z88.6 Allergy status to analgesic agent; Z60.2 Problems related to living alone; Z88.1 Allergy status to other antibiotic agents; Z88.8 Allergy status to other drugs, medicaments and biological substances; Z85.3 Personal history of malignant neoplasm of breast; Z91.040 Latex allergy status; Z91.013 Allergy to seafood; Z28.310 Unvaccinated for COVID-19; Z87.891 Personal history of nicotine dependence; Z79.899 Other long term (current) drug therapy
CPT/HCPCS: 36415; 70450; 71045; 71250; 72125; 80048; 80076; 83605; 83690; 83735; 83880; 84100; 84439; 84443; 84484; 85025; 85610; 87040; 93005; 96372; 99285; J1100; J1200; J1650; J2270; J2405; J3475; J3480; J7030; J7040

== ENCOUNTER 2024-04-28 08:17 | Emergency (ER) | payer MEDICARE ==
--- NOTE | 2024-04-28 10:05 | RAD REPORT ---
EXAM DESCRIPTION: CT - Head Brain Wo Cont - 04/28/2024 8:54 am CLINICAL HISTORY: fall, headinjury COMPARISON: Facial Bones W/ Mpr dated 04/28/2024; Ct Stroke Brain Wo Cont dated 09/10/2020 TECHNIQUE: Noncontrast head CT images were obtained without IV contrast. Multiplanar reformats were generated and reviewed. All CT scans are performed using dose optimization technique as appropriate and may include automated exposure control or mA/KV adjustment according to patient size. FINDINGS: No intracranial hemorrhage, mass, or edema. Midline structures are unremarkable. Normal ventricular caliber for age. Ramirez-white matter differentiation is preserved, without evidence of acute infarct. No abnormal extra- axial fluid collections. Mastoid air cells and visualized portions of the paranasal sinuses are clear. No acute bony findings. IMPRESSION: No evidence of an acute intracranial process.
--- NOTE | 2024-04-28 10:15 | RAD REPORT ---
EXAM DESCRIPTION: CT - Thorax Wo Con - 04/28/2024 8:56 am CLINICAL HISTORY: fall, left chest/rib pain COMPARISON: Thorax Wo Con dated 04/05/2023; Thorax Wo Con dated 09/26/2022; Thorax Wo Con dated 022 TECHNIQUE: Axial thin cut images of the chest were obtained without IV contrast. Multiplanar reforma ts were generated and reviewed. All CT scans are performed using dose optimization technique as appropriate and may include automated exposure control or mA/KV adjustment according to patient size. FINDINGS: No mass or infiltrate in the lung parenchyma. Left costophrenic angle ovoid 1 cm nodule is stable. Right lower lobe peribronchovascular triangular 7-8 mm nodule is stable. These are likely be nign. No pleural thickening or pleural effusion. No pneumothorax. No abnormal mediastinal or hilar masses or lymphadenopathy seen. No significant aortic or pulmonary a rtery findings. Assessment is limited in the absence of IV contrast. No chest wall mass or abnormal axillary lymphadenopathy. Evaluation of the solid abdominal structures reveals no suspicious findings. Low-density ovoid 4.2 cm right adrenal nodule, with CT density less than 10 Hounsfield units, suggestive of a benign adenoma. Subcapsular hepatic segment 4 A fluid density cyst measuring 1.7 cm. No acute osseous abnormality. IMPRESSION: No acute process within the chest. Stable findings as above.
--- NOTE | 2024-04-28 10:18 | RAD REPORT ---
EXAM DESCRIPTION: CT - CTFB CLINICAL HISTORY: fall, facial injury COMPARISON: No comparisons TECHNIQUE: Axial thin cut noncontrast CT images of the face were obtained with sagittal and coronal reconstruction images. All CT scans are performed using dose optimization technique as appropriate and may include automated exposure control or mA/KV adjustment according to patient size. FINDINGS: No acute facial bone fracture is seen.The mandible is intact. The globes and orbital contents are grossly unremarkable.The paranasal sinuses and mastoids are clear . Multiple dental periapical small collections, and sequelae of prior dental treatments. IMPRESSION: Negative for facial bone fracture. Suggestion of multiple small dental periapical abscess ease, particularly along the right maxillary t eeth. Please correlate with dental exam.
--- NOTE | 2024-04-28 12:28 | RAD REPORT ---
EXAM DESCRIPTION: RAD - Knee Left 3 View - 04/28/2024 9:14 am CLINICAL HISTORY: PAIN COMPARISON: No comparisons TECHNIQUE: Left knee, 3 views. FINDINGS: No fracture, dislocation or periosteal reaction. Mild degenerative changes with marginal s purring most pronounced medially. Small suprapatellar joint effusion. Mineralization along the latera l meniscus. Clinical concerns for internal derangement or occult bony injury could be further assessed with MR im aging. 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 Depositional arthropathy such as CPPD should be considered. Small suprapatellar joint effusion.
--- NOTE | 2024-04-28 12:29 | RAD REPORT ---
EXAM DESCRIPTION: RAD - Hip Left 2 View - 04/28/2024 9:14 am CLINICAL HISTORY: PAIN COMPARISON: No comparisons TECHNIQUE: Left hip, AP and frogleg views of the left hip. FINDINGS: There is no fracture or dislocation. Mild left hip joint degenerative changes. No acute or destructive bony process seen. IMPRESSION: No acute findings of the left hip. Mild degenerative changes.
[2024-04-28 13:15] VITALS: BP 116/86; TEMP 97.8; O2SAT 100
--- NOTE | 2024-04-28 18:02 | EDPHYS ---
Physician Documentation [facility] Name: Monie Dailey Age: 73 yrs Sex: Female : 1950 Arrival Date: 04/28/2024 Time: 08:17 Bed 11 Private MD: ED Physician Bradford Strickland HPI: 04/28 10:36 This 73 yrs old Female presents to ER via Ambulatory with complaints of Fall Injury - rn on 04/24/24. 10:36 Details of fall: The patient fell from an upright position, while walking. Onset: The rn symptoms/episode began/occurred 4 day(s) ago. Associated injuries: The patient sustained injury to the head. 10:37 Severity of symptoms: At their worst the symptoms were mild, in the emergency rn department the symptoms are unchanged. The patient has not experienced similar symptoms in the past. The patient has not recently seen a physician. Patient reports fall last Saturday. Struck left head and face on the ground. Reports left hip and left knee pain as well. Ambulatory. No blood thinners.. Historical: - Allergies: 08:27 Aspirin; iw 08:27 Codeine; iw 08:27 crab; iw 08:27 Ibuprofen; iw 08:27 Iodine; iw 08:27 Latex; iw 08:27 PENICILLINS; iw 08:27 teramycin; iw - PMHx: 08:27 Hypertension; breast cancer; narcolepsy; neuropathy; iw - Immunization history:: Adult Immunizations up to date. - Infectious Disease History:: Denies. - Family history:: not pertinent. - Social history:: Smoking status: Patient denies any tobacco usage or history of. - Hospitalizations: : No recent hospitalization is reported. ROS: 10:37 Constitutional: Negative for fever, chills, and weight loss, Eyes: Negative for injury, rn pain, redness, and discharge, Neck: Negative for injury, pain, and swelling, Cardiovascular: Positive for left rib pain Respiratory: Negative for shortness of breath, cough, wheezing, and pleuritic chest pain, Abdomen/GI: Negative for abdominal pain, nausea, vomiting, diarrhea, and constipation, Back: Negative for injury and pain, MS/Extremity: Positive for left knee and left hip pain Neuro: Positive for left head and rib pain Exam: 10:38 Constitutional: This is a well developed, well nourished patient who is awake, alert, rn and in no acute distress. Head/Face: Mild ecchymosis upper lip, no laceration. No facial bony tenderness Neck: No midline cervical tenderness Chest/axilla: No crepitus but mild left lateral rib tenderness Cardiovascular: Regular rate and rhythm. No pulse deficits. Respiratory: No increased work of breathing, no retractions or nasal flaring. Abdomen/GI: Soft, non-tender Back: No spinal tenderness MS/ Extremity: Pulses equal, no cyanosis. Neurovascular intact. Full, normal range of motion. No gross deformity Neuro: Awake and alert, GCS 15, oriented to person, place, time, and situation. Cranial nerves II-XII grossly intact. Motor strength 5/5 in all extremities. Sensory grossly intact. Cerebellar exam normal. Normal gait. Vital Signs: 08:26 BP 208 / 95; Pulse 66; Resp 16; Temp 97.5; Pulse Ox 99% on R/A; iw 09:58 BP 167 / 84; Pulse 65; Resp 17; Pulse Ox 99% ; ll1 12:49 BP 154 / 87; Pulse 64; Resp 15; Pulse Ox 99% ; as6 MDM: 08:22 Patient medically screened. rn 12:35 Differential diagnosis: abrasion, closed head injury, contusion, fracture, sprain, rn strain. Data reviewed: vital signs, nurses notes, radiologic studies, CT scan, plain films, and as a result, I will discharge patient. Counseling: I had a detailed discussion with the patient and/or guardian regarding the historical points, exam findings, and any diagnostic results supporting the discharge/admit diagnosis, radiology results, the need for outpatient follow up, to return to the emergency department if symptoms worsen or persist or if there are any questions or concerns that arise at home. Special discussion: I discussed with the patient/guardian in detail that at this point there is no indication for admission to the hospital. It is understood, however, that if the symptoms persist or worsen the patient needs to return immediately for re-evaluation. Special discussion: I discussed with the patient the need to follow-up with the PCP/specialist for the noted incidental finding on X-ray/CT scanning. ED course: No acute traumatic findings. I have personally reviewed all of the results, including but not limited to blood tests and imaging deemed necessary to safely discharge this patient at this time. All results given to and printed out for patient. I personally went over all the results with the patient and answered all questions. Patient will follow-up with PCP and or specialist as discussed. Return precautions given and understood.. 04/28 08:31 Order name: CT Head Brain wo Cont; Complete Time: 10:51 rn 04/28 08:31 Order name: CT Facial Bones W/O Con; Complete Time: 10:51 rn 04/28 08:31 Order name: XRAY Hip LEFT 2 view; Complete Time: 12:30 rn 04/28 08:31 Order name: CT Chest Wo Con; Complete Time: 10:51 rn 04/28 09:00 Order name: XRAY Knee LEFT 3 view; Complete Time: 12:30 rn Administered Medications: No medications were administered Disposition Summary: 04/28/24 12:36 Discharge Ordered Notes: Location: Home rn Problem: new rn Symptoms: have improved rn Condition: Stable rn Diagnosis - Unspecified injury of head, initial encounter rn - Contusion of left hip rn - Contusion of left knee rn Followup: rn - With: Private Physician - When: As needed - Reason: Recheck today's complaints, Re-evaluation by your physician Discharge Instructions: - Discharge Summary Sheet rn - Contusion rn - Head Injury, Adult rn Forms: - Medication Reconciliation Form rn - Antibiotic rn diabetes educator - Prescription Opioid Use rn - Patient Portal Instructions rn - Leadership Thank You Letter rn Signatures: Dispatcher [employer] Shalini Lanza, RN RN Bradford Perry MD MD rn Lewis, Lynsay, RN RN ll1 Corrections: (The following items were deleted from the chart) 08:32 08:31 Facial Bones W/ MPR+CT.RAD.BRZ ordered. EDMS EDMS 08:32 08:32 Hip Left 2 View+RAD.RAD.BRZ ordered. EDMS EDMS 08:32 08:32 Thorax Wo Con+CT.RAD.BRZ ordered. EDMS EDMS
--- NOTE | 2024-04-28 18:02 | ER ---
Nurse's Notes [facility] Name: Monie Dailey Age: 73 yrs Sex: Female : 1950 Arrival Date: 04/28/2024 Time: 08:17 Bed 11 Private MD: Diagnosis: Unspecified injury of head, initial encounter;Contusion of left hip;Contusion of left knee Presentation: 04/28 08:25 Chief complaint: Patient states: tripped and fell on Saturday night, fell on left side, iw now is having pain in left side of chest and left knee pain , fell on face and busted lip and left hip pain. 08:25 Acuity: MINGO 4 iw 08:26 Coronavirus screen: At this time, the client does not indicate any symptoms associated iw with coronavirus-19. Ebola Screen: Patient negative for fever greater than or equal to 101.5 degrees Fahrenheit, and additional compatible Ebola Virus Disease symptoms Patient denies exposure to infectious person. Patient denies travel to an Ebola-affected area in the 21 days before illness onset. No symptoms or risks identified at this time. Risk Assessment: Do you want to hurt yourself or someone else? Patient reports no desire to harm self or others. Onset of symptoms was April 24, 2024. 08:26 Method Of Arrival: Ambulatory iw 08:29 Initial Sepsis Screen: Does the patient meet any 2 criteria? No. Patient's initial iw sepsis screen is negative. Does the patient have a suspected source of infection? No. Patient's initial sepsis screen is negative. Historical: - Allergies: 08:27 Aspirin; iw 08:27 Codeine; iw 08:27 crab; iw 08:27 Ibuprofen; iw 08:27 Iodine; iw 08:27 Latex; iw 08:27 PENICILLINS; iw 08:27 teramycin; iw - PMHx: 08:27 Hypertension; breast cancer; narcolepsy; neuropathy; iw - Immunization history:: Adult Immunizations up to date. - Infectious Disease History:: Denies. - Family history:: not pertinent. - Social history:: Smoking status: Patient denies any tobacco usage or history of. - Hospitalizations: : No recent hospitalization is reported. Screenin:36 [facility] ED Fall Risk Assessment (Adult) History of falling in the last 3 months, ll1 including since admission Yes- single mechanical fall (1 pt) Confusion or Disorientation No (0 pts) Intoxicated or Sedated No (0 pts) Impaired Gait No (0 pts) Mobility Assist Device Used No (0 pt) Altered Elimination No (0 pt) Score/Fall Risk Level 0 - 2 = Low Risk Maintained a safe environment, Hourly rounding (assess needs \T\ fall precautionary measures) done, Used ambulatory aids as needed (educated on \T\ assisted with). Abuse screen: Denies threats or abuse. Nutritional screening: No deficits noted. Tuberculosis screening: No symptoms or risk factors identified. Assessment: 08:35 General: Appears uncomfortable, Behavior is calm, cooperative, appropriate for age. ll1 Pain: Complains of pain in L hip, chest Quality of pain is described as aching. Neuro: Reports pain to upper mouth area. Musculoskeletal: Circulation, motion, and sensation intact. Capillary refill < 3 seconds, Reports pain in L hip, sternum. Injury Description: Bruise. 09:58 Reassessment: No changes from previously documented assessment. Patient and/or family ll1 updated on plan of care and expected duration. Pain level reassessed. Patient is alert, oriented x 3, equal unlabored respirations, skin warm/dry/pink. 12:12 General: pt ambulating to bathroom with even and steady gait . as6 Vital Signs: 08:26 BP 208 / 95; Pulse 66; Resp 16; Temp 97.5; Pulse Ox 99% on R/A; iw 09:58 BP 167 / 84; Pulse 65; Resp 17; Pulse Ox 99% ; ll1 12:49 BP 154 / 87; Pulse 64; Resp 15; Pulse Ox 99% ; as6 ED Course: 08:20 Patient arrived in ED. im 08:22 Bradford Strickland MD is Attending Physician. rn 08:26 Triage completed. iw 08:27 Arm band placed on. iw 08:37 Patient has correct armband on for positive identification. Bed in low position. Call ll1 light in reach. Provided Education on: ER procedures and process. Cardiac monitoring not applicable on this patient. 08:37 No provider procedures requiring assistance completed. ll1 08:40 Aditi Adams, SUMANTH is Primary Nurse. ll1 08:56 CT Head Brain wo Cont In Process Unspecified. EDMS 08:56 CT Facial Bones W/O Con In Process Unspecified. EDMS 08:57 CT Chest Wo Con In Process Unspecified. EDMS 09:16 XRAY Hip LEFT 2 view In Process Unspecified. EDMS 09:16 XRAY Knee LEFT 3 view In Process Unspecified. EDMS 12:50 Patient did not have IV access during this emergency room visit. as6 Administered Medications: No medications were administered Medication: 12:12 VIS not applicable for this client. as6 Outcome: 12:36 Discharge ordered by . sumanth 12:49 Discharged to home ambulatory, as6 12:49 Condition: stable 12:49 Discharge instructions given to patient, Instructed on discharge instructions, follow up and referral plans. Demonstrated understanding of instructions, follow-up care, 12:50 Patient left the ED. as6 Signatures: Dispatcher [employer] Shalini Lanza, RN RN iw Bradford Strickland MD MD rn Lewis, Lynsay, RN RN ll1 Nghia Stuart RN RN as6 Anat Wright Corrections: (The following items were deleted from the chart) 08:29 08:26 BP 208 / 95; Pulse 66bpm; Resp 16bpm; Pulse Ox 99% RA; iw iw
== END 2024-04-28 12:50 | disposition home or self-care (01) ==
LOC: ER 08:17
DX: S09.90XA Unspecified injury of head, initial encounter (principal); S70.02XA Contusion of left hip, initial encounter; S80.02XA Contusion of left knee, initial encounter
CPT/HCPCS: 70450; 70486; 71250; 76377

== ENCOUNTER 2024-05-13 10:11 | Emergency (ER) | payer MEDICARE ==
--- NOTE | 2024-05-13 10:35 | EDPHYS ---
Physician Documentation [facility] Name: Monie Dailey Age: 73 yrs Sex: Female : 1950 Arrival Date: 05/13/2024 Time: 10:11 Bed 15 Private MD: ED Physician Mana Pacheco HPI: 05/13 10:31 This 73 yrs old Female presents to ER via Ambulatory with complaints of Problem With sp3 Urinary Catheter. 10:31 73-year-old female here for catheter removal which was placed for urinary retention sp3 several days ago here in this ED. Patient is already been on antibiotics. She could not get into see Dr. Cerda so presents here for removal. She has no current symptoms. She denies fever, abdominal pain, back pain, or any other signs or symptoms on ROS at this time. PMH above.. Historical: - Allergies: 10:19 Aspirin; db 10:19 Codeine; db 10:19 crab; db 10:19 Ibuprofen; db 10:19 Iodine; db 10:19 Latex; db 10:19 PENICILLINS; db 10:19 teramycin; db - PMHx: 10:19 narcolepsy; neuropathy; Hypertension; breast cancer; db - Immunization history:: Adult Immunizations unknown. - Infectious Disease History:: Denies. - Social history:: Smoking status: Patient denies any tobacco usage or history of. ROS: 10:32 Constitutional: Negative for fever, chills, and weight loss, Eyes: Negative for injury, sp3 pain, redness, and discharge, ENT: Negative for injury, pain, and discharge, Neck: Negative for injury, pain, and swelling, Cardiovascular: Negative for chest pain, palpitations, and edema, Respiratory: Negative for shortness of breath, cough, wheezing, and pleuritic chest pain, Abdomen/GI: Negative for abdominal pain, nausea, vomiting, diarrhea, and constipation, Back: Negative for injury and pain, MS/Extremity: Negative for injury and deformity, Skin: Negative for injury, rash, and discoloration, Neuro: Negative for headache, weakness, numbness, tingling, and seizure, Psych: Negative for depression, anxiety, suicide ideation, homicidal ideation, and hallucinations, Allergy/Immunology: Negative for hives, rash, and allergies, 10:32 All other systems are negative, Exam: 10:32 Constitutional: This is a well developed, well nourished patient who is awake, alert, sp3 and in no acute distress. Head/Face: Normocephalic, atraumatic. Chest/axilla: Normal chest wall appearance and motion. Nontender with no deformity. No lesions are appreciated. Cardiovascular: Regular rate and rhythm with a normal S1 and S2. No gallops, murmurs, or rubs. Normal PMI, no JVD. No pulse deficits. Respiratory: Lungs have equal breath sounds bilaterally, clear to auscultation and percussion. No rales, rhonchi or wheezes noted. No increased work of breathing, no retractions or nasal flaring. Abdomen/GI: Soft, non-tender, with normal bowel sounds. No distension or tympany. No guarding or rebound. No evidence of tenderness throughout. MS/ Extremity: Pulses equal, no cyanosis. Neurovascular intact. Full, normal range of motion. Neuro: Awake and alert, GCS 15, oriented to person, place, time, and situation. Cranial nerves II-XII grossly intact. Motor strength 5/5 in all extremities. Sensory grossly intact. Cerebellar exam normal. Normal gait. Psych: Awake, alert, with orientation to person, place and time. Behavior, mood, and affect are within normal limits. 10:32 : Catheter will be removed by nurse., Vital Signs: 10:15 BP 170 / 66; Pulse 59; Resp 16; Temp 98.3; Pulse Ox 99% on R/A; Weight 73.03 kg; Height db 5 ft. 5 in. ; 10:46 BP 158 / 72; Pulse 56 LA; Resp 20; Pulse Ox 100% on R/A; kj2 10:15 Body Mass Index 26.79 (73.03 kg, 165.1 cm) db MDM: 10:31 Patient medically screened. sp3 10:33 Data reviewed: vital signs, nurses notes, old medical records. ED course: Catheter will sp3 be removed by nurse. Follow-up with urology.. Administered Medications: No medications were administered Disposition Summary: 05/13/24 10:34 Discharge Ordered Notes: Location: Home sp3 Condition: Stable sp3 Diagnosis - Urinary retention, resolved sp3 Followup: sp3 - With: Sudhakar Cerda MD - When: Upon discharge from the Emergency Department - Reason: Continuance of care Discharge Instructions: - Discharge Summary Sheet sp3 - Indwelling Urinary Catheter Removal at Home, Female sp3 Forms: - Medication Reconciliation Form sp3 - Antibiotic Education sp3 - Prescription Opioid Use sp3 - Patient Portal Instructions sp3 - Leadership Thank You Letter sp3 Signatures: Mana Pacheco MD MD sp3 Shweta Richter RN RN db
--- NOTE | 2024-05-13 10:35 | ER ---
Nurse's Notes [facility] Name: Monie Dailey Age: 73 yrs Sex: Female : 1950 Arrival Date: 05/13/2024 Time: 10:11 Bed 15 Private MD: Diagnosis: Urinary retention, resolved Presentation: 05/13 10:15 Chief complaint: Patient states: REQUESTING URINARY CATHETER TO BE REMOVED. UNABLE TO db GET INTO OFFICE WITH UROLOGIST. CATHETER IN PLACE X 1 WEEK. STATES IS PAINFUL. Coronavirus screen: Client denies travel out of the [place] in the last 14 days. At this time, the client does not indicate any symptoms associated with coronavirus-19. Ebola Screen: Patient negative for fever greater than or equal to 101.5 degrees Fahrenheit, and additional compatible Ebola Virus Disease symptoms Patient denies exposure to infectious person. Patient denies travel to an Ebola-affected area in the 21 days before illness onset. No symptoms or risks identified at this time. Initial Sepsis Screen: Does the patient meet any 2 criteria? No. Patient's initial sepsis screen is negative. Does the patient have a suspected source of infection? No. Patient's initial sepsis screen is negative. Risk Assessment: Do you want to hurt yourself or someone else? Patient reports no desire to harm self or others. Onset of symptoms was May 06, 2024. 10:15 Method Of Arrival: Ambulatory db 10:15 Acuity: MINGO 3 db Triage Assessment: 10:19 General: Appears in no apparent distress. comfortable, Behavior is calm, cooperative. db Pain: Denies pain. Neuro: Level of Consciousness is awake, alert, obeys commands, Oriented to person, place, time, situation. Respiratory: Airway is patent Respiratory effort is even, unlabored, Respiratory pattern is regular, symmetrical. Historical: - Allergies: 10:19 Aspirin; db 10:19 Codeine; db 10:19 crab; db 10:19 Ibuprofen; db 10:19 Iodine; db 10:19 Latex; db 10:19 PENICILLINS; db 10:19 teramycin; db - PMHx: 10:19 narcolepsy; neuropathy; Hypertension; breast cancer; db - Immunization history:: Adult Immunizations unknown. - Infectious Disease History:: Denies. - Social history:: Smoking status: Patient denies any tobacco usage or history of. Screenin:35 [facility] ED Fall Risk Assessment (Adult) History of falling in the last 3 months, nj1 including since admission No falls in past 3 months (0 pts) Confusion or Disorientation No (0 pts) Intoxicated or Sedated No (0 pts) Impaired Gait No (0 pts) Mobility Assist Device Used No (0 pt) Altered Elimination Yes (1 pt) Score/Fall Risk Level 0 - 2 = Low Risk Oriented to surroundings, Maintained a safe environment, Hourly rounding (assess needs \T\ fall precautionary measures) done. 10:35 Abuse screen: Denies threats or abuse. Denies injuries from another. Nutritional nj1 screening: No deficits noted. Tuberculosis screening: No symptoms or risk factors identified. Assessment: 10:35 General: Appears in no apparent distress. comfortable, Behavior is calm, cooperative, nj1 appropriate for age. 10:35 Pain: Denies pain. Neuro: Level of Consciousness is awake, alert, obeys commands, nj1 Oriented to person, place, time, situation. Cardiovascular: Patient's skin is warm and dry. Respiratory: Airway is patent Respiratory effort is even, unlabored. : Redmond in place to gravity drainage. Vital Signs: 10:15 BP 170 / 66; Pulse 59; Resp 16; Temp 98.3; Pulse Ox 99% on R/A; Weight 73.03 kg; Height db 5 ft. 5 in. ; 10:46 BP 158 / 72; Pulse 56 LA; Resp 20; Pulse Ox 100% on R/A; kj2 10:15 Body Mass Index 26.79 (73.03 kg, 165.1 cm) db ED Course: 10:13 Patient arrived in ED. ra3 10:19 Triage completed. db 10:19 Arm band placed on Patient placed in an exam room. db 10:28 Mana Pacheco MD is Attending Physician. sp3 10:34 Sudhakar Cerda MD is Referral Physician. sp3 10:35 Patient has correct armband on for positive identification. Bed in low position. Call nj1 light in reach. 10:35 Provided Education on: call light, fall precautions. nj1 10:37 Redmond cath removed intact, balloon deflated. nj1 10:40 Notified ED physician of other Clarification for discharge. Per Dr Pacheco, ok to go nj1 ahead with discharge, no need for patient to void. 10:41 Lexi Kelley, RN is Primary Nurse. nj1 10:43 No provider procedures requiring assistance completed. Patient did not have IV access nj1 during this emergency room visit. Administered Medications: No medications were administered Medication: 10:43 VIS not applicable for this client. nj1 Outcome: 10:34 Discharge ordered by . sp3 10:43 Discharged to home ambulatory, nj1 10:43 Condition: stable 10:43 Discharge instructions given to patient, Instructed on discharge instructions, follow up and referral plans. Demonstrated understanding of instructions, follow-up care, 10:54 Patient left the ED. nj1 Signatures: Mana Pacheco MD MD sp3 Shweta Richter, RN RN db Lexi Kelley, RN RN nj1 Laura Lo 3 Laura Martinez, SUMANTH RN kj2
[2024-05-13 11:12] VITALS: TEMP 98.3
[2024-05-13 11:28] VITALS: BP 158/72; O2SAT 100
== END 2024-05-13 10:54 | disposition home or self-care (01) ==
LOC: ER 10:11
DX: Z46.6 Encounter for fitting and adjustment of urinary device (principal)
CPT/HCPCS: 99282

== ENCOUNTER 2024-09-18 13:51 | Emergency (ER) | payer MEDICARE ==
--- NOTE | 2024-09-18 14:50 | RAD REPORT ---
EXAMINATION: CT HEAD WITHOUT CONTRAST CT CERVICAL SPINE WITHOUT CONTRAST CLINICAL INDICATION: Head and neck injury status post fall. Head and neck pain TECHNIQUE: Axial CT images from the skull base to the vertex without intravenous contrast. Axial CT i mages through the cervical spine were obtained without intravenous contrast. Sagittal and coronal reformatted images were created from the data set. Coronal and sagittal reformatted images were creat ed from the data set. One or more of the following dose reduction techniques were used: Automated exposure control, adjustment of the mA and/or kV according to patient size, and/or iterative reconstr uction. Unless otherwise specified, incidental findings do not require dedicated imaging follow-up. [id number]. Comparison: March 2024 FINDINGS: Intracranial bleed not noted. Ventricles are normal in caliber. No significant hypodensity within the brain No extra-axial fluid collection. No fluid within the sinuses/mastoids No fracture or dislocation is seen involving the cervical spine. IMPRESSION: No acute intracranial abnormality noted A cervical fracture is not seen. 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 If the patient continues to have symptoms to suggest acute CONSTRUCTION RECRUITER/spinal pathology then MRI would be rec ommended
--- NOTE | 2024-09-18 15:00 | RAD REPORT ---
Exam:Elbow Left 3 View HISTORY: Left elbow pain FINDINGS: No fracture or dislocation seen
--- NOTE | 2024-09-18 15:02 | RAD REPORT ---
Exam:Knee Left 3 View HISTORY: Left knee pain FINDINGS: No fracture or dislocation seen Chondrocalcinosis
--- NOTE | 2024-09-18 16:44 | RAD REPORT ---
Exam:Hip Left 2 View HISTORY: Left hip pain FINDINGS: No fracture or dislocation seen. Osteoporosis If the patient continues to have symptoms to suggest an occult fracture then MRI would be recommended
--- NOTE | 2024-09-18 16:48 | RAD REPORT ---
Exam:Knee Right 3 View HISTORY: Right knee pain FINDINGS: No fracture or dislocation seen. Osteoporosis. Chondrocalcinosis is present. Small joint effusion If the patient continues to have symptoms to suggest an occult fracture, ligamentous or meniscal inju ry then MRI would be recommended
--- NOTE | 2024-09-18 17:13 | ER ---
Nurse's Notes [facility] Name: Monie Dailey Age: 74 yrs Sex: Female : 1950 Arrival Date: 09/18/2024 Time: 13:51 Bed 23 Private MD: Diagnosis: Pain in left hip;Pain in right knee;Pain in left knee;Abrasion, left knee Presentation: 09/18 14:29 Chief complaint: Patient states: fell form standing, pain to left hip and left knee. iw 14:29 Acuity: MINGO 4 iw 14:29 Method Of Arrival: Wheelchair iw 14:29 Coronavirus screen: At this time, the client does not indicate any symptoms associated iw with coronavirus-19. Ebola Screen: No symptoms or risks identified at this time. Initial Sepsis Screen: Does the patient meet any 2 criteria? No. Patient's initial sepsis screen is negative. Does the patient have a suspected source of infection? No. Patient's initial sepsis screen is negative. Risk Assessment: Do you want to hurt yourself or someone else? Patient reports no desire to harm self or others. Onset of symptoms was September 18, 2024. Historical: - Allergies: 17:05 Aspirin; iw 17:05 Codeine; iw 17:05 crab; iw 17:05 Ibuprofen; iw 17:05 Iodine; iw 17:05 Latex; iw 17:05 PENICILLINS; iw 17:05 teramycin; iw - PMHx: 17:05 breast cancer; Hypertension; narcolepsy; neuropathy; iw Screenin:06 [facility] ED Fall Risk Assessment (Adult) History of falling in the last 3 months, iw including since admission Yes- single mechanical fall (1 pt) Confusion or Disorientation No (0 pts) Intoxicated or Sedated No (0 pts) Impaired Gait Yes (1 pt) Mobility Assist Device Used Yes (1 pt) Altered Elimination No (0 pt) Score/Fall Risk Level 3 or more points = High Risk Oriented to surroundings. Abuse screen: Denies injuries from another. Nutritional screening: No deficits noted. Nutritional screening: No deficits noted. Tuberculosis screening: No symptoms or risk factors identified. Assessment: 14:30 General: Appears in no apparent distress. Behavior is calm, cooperative. Pain: iw Complains of pain in pelvis, right leg and left leg. Neuro: Level of Consciousness is awake, alert, obeys commands, Oriented to person, place, time, situation, Moves all extremities. Full function. Cardiovascular: Patient's skin is warm and dry. Respiratory: Respiratory effort is even, unlabored, Respiratory pattern is regular, symmetrical. Derm: Wound noted left knee Wound is abrasion. Musculoskeletal: Range of motion: limited in left hip and right hip. 16:00 Reassessment: assisted to the bathroom, pt able to bear weight to stand. iw Vital Signs: 14:29 BP 142 / 95; Pulse 87; Resp 16; Temp 98.1; Pulse Ox 96% on R/A; iw ED Course: 13:58 Patient arrived in ED. sj2 13:59 Bong Head DO is Attending Physician. ms3 14:29 Triage completed. iw 14:30 Arm band placed on. iw 14:40 CT Head C Spine In Process Unspecified. EDMS 14:53 Knee Left 3 View XRAY In Process Unspecified. EDMS 14:53 Elbow Left 3 View XRAY In Process Unspecified. EDMS 16:15 Hip Left 2 View XRAY In Process Unspecified. EDMS 16:15 Knee Right 3 View XRAY In Process Unspecified. EDMS 17:04 Shalini Multani, RN is Primary Nurse. iw 17:06 Patient has correct armband on for positive identification. Provided Education on: . iw 17:06 No provider procedures requiring assistance completed. Patient did not have IV access iw during this emergency room visit. 17:13 Edson Bryan MD is Referral Physician. ms3 Administered Medications: 16:09 Drug: Boostrix Tdap IM 0.5 ml IM once; as a single dose Route: IM; Site: left deltoid; iw Medication: 14:30 VIS not applicable for this client. iw Outcome: 17:13 Discharge ordered by . ms3 17:42 Discharged to home via wheelchair, with family, iw 17:42 Condition: good 17:42 Discharge instructions given to patient, Instructed on discharge instructions, follow up and referral plans. Demonstrated understanding of instructions, follow-up care, 17:43 Patient left the ED. iw Signatures: Dispatcher [employer] EDShalini Smith, SUMANTH RN iw Bong Head DO DO ms3 Ghazal Walker sj2
--- NOTE | 2024-09-18 17:14 | EDPHYS ---
Physician Documentation [facility] Name: Monie Dailey Age: 74 yrs Sex: Female : 1950 Arrival Date: 09/18/2024 Time: 13:51 Bed 23 Private MD: ED Physician Bong Head HPI: 09/18 15:34 This 74 yrs old Female presents to ER via Unassigned with complaints of Fall Injury. ms3 15:34 74-year-old female presents to the emergency department for falling today at ms3 approximately 11:30 AM while trying to retrieve her dog. During the fall, the patient injured the left hand, knee, elbow, and groin. The patient describes the groin pain as severe and persistent. The patient has a history of chronic neck pain, which has been exacerbated since hospitalization for an electrolyte imbalance in March or April. The patient also reports intermittent diarrhea over the past several months, which has improved recently. There is a past incident of head injury while getting into a car, but no loss of consciousness occurred at that time. The patient has not had a tetanus shot in a long time.. Historical: - Allergies: 17:05 Aspirin; iw 17:05 Codeine; iw 17:05 crab; iw 17:05 Ibuprofen; iw 17:05 Iodine; iw 17:05 Latex; iw 17:05 PENICILLINS; iw 17:05 teramycin; iw - PMHx: 17:05 breast cancer; Hypertension; narcolepsy; neuropathy; iw ROS: 15:34 Constitutional: Negative for fever, and chills. Cardiovascular: Negative for chest ms3 pain, and palpitations. Respiratory: Negative for shortness of breath, cough, wheezing, and pleuritic chest pain, Abdomen/GI: Negative for abdominal pain, nausea, vomiting, diarrhea, and constipation, 15:34 MS/extremity: Positive for pain, of the Left hip, left knee, right knee,, 15:34 Skin: Positive for abrasion(s), Exam: 15:34 Constitutional: This is a well developed, well nourished patient who is awake, alert, ms3 and in no acute distress. Head/Face: Normocephalic, atraumatic. Chest/axilla: Normal chest wall appearance and motion. Nontender with no deformity. Cardiovascular: Regular rate and rhythm with a normal S1 and S2. No gallops, murmurs, or rubs. Normal PMI, no JVD. No pulse deficits. Respiratory: Lungs have equal breath sounds bilaterally, clear to auscultation and percussion. No rales, rhonchi or wheezes noted. No increased work of breathing, no retractions or nasal flaring. Abdomen/GI: Soft, non-tender, with normal bowel sounds. No distension or tympany. No guarding or rebound. No evidence of tenderness throughout. Skin: Warm, dry with normal turgor. Normal color with no rashes, no lesions, and no evidence of cellulitis. 15:34 Musculoskeletal/extremity: Extremities: noted in the Left knee: abrasion, pain, tenderness, There is no evidence of swelling, noted in the Left elbow: abrasion, no evidence of deformity, swelling, noted in the Left hip: pain, no evidence of tenderness, Vital Signs: 14:29 BP 142 / 95; Pulse 87; Resp 16; Temp 98.1; Pulse Ox 96% on R/A; iw MDM: 14:25 Medical Screening Exam initiated ms3 15:34 Differential diagnosis: abrasion, closed head injury, contusion, fracture, sprain, ms3 strain. 18:26 Data reviewed: vital signs, nurses notes, and as a result, I will discharge patient. I ms3 considered the following discharge prescriptions or medication management in the emergency department Medications were administered in the Emergency Department. See MAR. Independent interpretation of the following test(s) in the Emergency Department CT Scan: My interpretation is CT head without contrast images reviewed by me did not reveal intracranial hemorrhage.. Counseling: I had a detailed discussion with the patient and/or guardian regarding the historical points, exam findings, and any diagnostic results supporting the discharge/admit diagnosis, radiology results, the need for outpatient follow up, to return to the emergency department if symptoms worsen or persist or if there are any questions or concerns that arise at home. ED course: On reevaluation patient symptoms improved. Patient ambulatory in the emergency department with assistance. Patient to follow-up with orthopedics next week. Patient understands and agrees with plan peer all questions were answered. Return precautions discussed include worsening symptoms, or any other concerns.. 09/18 14:27 Order name: CT Head C Spine; Complete Time: 15:11 ms3 09/18 14:27 Order name: Knee Left 3 View XRAY; Complete Time: 15:11 ms3 09/18 14:27 Order name: Elbow Left 3 View XRAY; Complete Time: 15:11 ms3 09/18 15:18 Order name: Hip Left 2 View XRAY; Complete Time: 17:02 ms3 09/18 15:18 Order name: Knee Right 3 View XRAY; Complete Time: 17:02 ms3 Administered Medications: 16:09 Drug: Boostrix Tdap IM 0.5 ml IM once; as a single dose Route: IM; Site: left deltoid; iw Disposition Summary: 09/18/24 17:13 Discharge Ordered Notes: Location: Home ms3 Condition: Stable ms3 Diagnosis - Pain in left hip ms3 - Pain in right knee ms3 - Pain in left knee ms3 - Abrasion, left knee ms3 Followup: ms3 - With: Edson Bryan MD - When: 2 - 3 days - Reason: Recheck today's complaints Discharge Instructions: - Discharge Summary Sheet ms3 - Acute Knee Pain, Adult ms3 - Abrasion, [id number] ms3 Forms: - Medication Reconciliation Form ms3 - Antibiotic Education ms3 - Prescription Opioid Use ms3 - Patient Portal Instructions ms3 - Leadership Thank You Letter ms3 Signatures: Dispatcher [employer] Shalini Lanza RN RN iw Bong Head DO DO ms3 Corrections: (The following items were deleted from the chart) 14:27 14:27 Head C Spine MPR Wo Con+CT.RAD.BRZ ordered. EDMS EDMS 14:27 14:27 Knee Left 3 View+RAD.RAD.BRZ ordered. EDMS EDMS 14:27 14:27 Elbow Left 3 View+RAD.RAD.BRZ ordered. EDMS EDMS
[2024-09-18] MEDS ORDERED: TDAP (DIPHTH,PERTUSS(ACELL),TET VAC) 0.5 ML VIAL IMVAC ONE (17:31)
[2024-09-18 17:58] VITALS: BP 142/95; TEMP 98.1; O2SAT 96
== END 2024-09-18 17:43 | disposition home or self-care (01) ==
LOC: ER 13:51
DX: S80.212A Abrasion, left knee, initial encounter (principal); M25.562 Pain in left knee; M25.561 Pain in right knee; W18.30XA Fall on same level, unspecified, initial encounter
CPT/HCPCS: 70450; 72125; 96372; 99284

== ENCOUNTER 2024-09-19 18:40 | Emergency (ER) | payer MEDICARE ==
[2024-09-19] MEDS ORDERED: LIDOCAINE 2% MPF 5 ML VIAL ONE (20:19)
--- NOTE | 2024-09-19 20:20 | RAD REPORT ---
EXAM: Hand Right 3 View HISTORY: injury/laceration COMPARISON: None FINDINGS: Bones: No acute fracture identified. Alignment:No significant malalignment. Degenerative changes:Advanced degenerative changes are present at the base of the thumb. Interphalang eal joint space narrowing is present. Other: n/a IMPRESSION: No evidence of acute osseous abnormality involving the imaged hand. No radiopaque foreign body.
[2024-09-19] MEDS ORDERED: LIDOCAINE 2% W/EPI 1:200,000 MPF 20 ML VIAL IM ONE (20:30)
--- NOTE | 2024-09-19 21:08 | ER ---
Nurse's Notes [facility] Name: Monie Dailey Age: 74 yrs Sex: Female : 1950 Arrival Date: 09/19/2024 Time: 18:40 Bed 13 Private MD: Diagnosis: Laceration without foreign body of right hand, initial encounter Presentation: 09/19 18:45 Chief complaint: EMS states: RIGHT HAND LACERATION. BLEEDING CONTROLLED. CUT HAND WHILE db WORKING ON A TV. Coronavirus screen: Client denies travel out of the [place] in the last 14 days. At this time, the client does not indicate any symptoms associated with coronavirus-19. Ebola Screen: Patient negative for fever greater than or equal to 101.5 degrees Fahrenheit, and additional compatible Ebola Virus Disease symptoms Patient denies exposure to infectious person. Patient denies travel to an Ebola-affected area in the 21 days before illness onset. No symptoms or risks identified at this time. Complicating Factors: The patient fell landing on an outstretched hand. Initial Sepsis Screen: Does the patient meet any 2 criteria? No. Patient's initial sepsis screen is negative. Does the patient have a suspected source of infection? No. Patient's initial sepsis screen is negative. Risk Assessment: Do you want to hurt yourself or someone else? Patient reports no desire to harm self or others. Onset of symptoms was September 19, 2024. Care prior to arrival: Bleeding of injury controlled. 18:45 Method Of Arrival: EMS: [facility] db 18:45 Acuity: MINGO 3 db Triage Assessment: 18:45 General: Appears in no apparent distress. comfortable, Behavior is calm, cooperative. db Pain: Complains of pain in right hand. Neuro: Level of Consciousness is awake, alert, obeys commands, Oriented to person, place, time, situation. Injury Description: Laceration sustained to right hand. Historical: - Allergies: 18:45 Aspirin; db 18:45 crab; db 18:45 Codeine; db 18:45 Iodine; db 18:45 Ibuprofen; db 18:45 PENICILLINS; db 18:45 Latex; db 18:45 teramycin; db - Home Meds: 22:35 amlodipine 5 mg tab 1 tab once daily [Active]; metoprolol tartrate 50 mg Oral tab 1 tab tl4 2 times per day [Active]; Ritalin 10 mg Oral tab 1 tab 2 times per day [Active]; Repatha Syringe 140 mg/mL subcutaneous Syringe [Active]; Protonix 40 mg Oral TbEC 1 tab once daily [Active]; montelukast 10 mg Oral tab 1 tab once daily [Active]; - PMHx: 18:45 breast cancer; Hypertension; narcolepsy; neuropathy; db - Immunization history:: Adult Immunizations unknown. - Infectious Disease History:: Denies. - Social history:: Smoking status: Patient denies any tobacco usage or history of. Screenin:31 [facility] ED Fall Risk Assessment (Adult) History of falling in the last 3 months, tl4 including since admission Yes- single mechanical fall (1 pt) Confusion or Disorientation No (0 pts) Intoxicated or Sedated No (0 pts) Impaired Gait No (0 pts) Mobility Assist Device Used No (0 pt) Altered Elimination No (0 pt) Score/Fall Risk Level 0 - 2 = Low Risk Oriented to surroundings, Maintained a safe environment, Educated pt \T\ family on fall prevention, incl call for assistance when getting out of bed, Assessed \T\ reinforced patient's understanding of fall precautions. Abuse screen: Denies threats or abuse. Denies injuries from another. Nutritional screening: No deficits noted. Tuberculosis screening: No symptoms or risk factors identified. Assessment: 20:30 Reassessment: Patient and/or family updated on plan of care and expected duration. Pain tl4 level reassessed. Patient is alert, oriented x 3, equal unlabored respirations, skin warm/dry/pink. Musculoskeletal: Reports pain in left arm and left elbow and left leg and left knee and right hand. 22:30 Reassessment: Patient and/or family updated on plan of care and expected duration. Pain tl4 level reassessed. Patient is alert, oriented x 3, equal unlabored respirations, skin warm/dry/pink. 22:35 Injury Description: Laceration is clean. tl4 Vital Signs: 18:45 BP 167 / 97; Pulse 69; Resp 16; Temp 98; Pulse Ox 100% ; Weight 90.72 kg; Height 6 ft. db 1 in. ; 20:30 BP 165 / 89; Pulse 90; Resp 20; Pulse Ox 97% on R/A; tl4 22:30 BP 156 / 81; Pulse 78; Resp 18; Temp 98.3(O); Pulse Ox 99% on R/A; tl4 18:45 Body Mass Index 26.39 (90.72 kg, 185.42 cm) db ED Course: 18:45 Patient arrived in ED. db 18:45 Arm band placed on Patient placed in an exam room. db 18:48 Deniz Coyne PA is PHCP. cp 18:48 Juan Moscoso MD is Attending Physician. cp 19:14 Triage completed. db 20:15 XRAY Hand RIGHT 3 View In Process Unspecified. EDMS 22:31 Patient has correct armband on for positive identification. Bed in low position. Call tl4 light in reach. Side rails up X 1. Adult w/ patient. Provided Education on: call elizabeth. 22:31 No provider procedures requiring assistance completed. Patient did not have IV access tl4 during this emergency room visit. Wound care: to abrasion, located on left knee was dressed with Neosporin, 4X4s, Patient tolerated well. 22:32 Wound care: to abrasion, located on left elbow was dressed with Neosporin, band aid, tl4 Patient tolerated well. 22:32 Velcro wrist splint applied to right wrist. tl4 Administered Medications: 21:00 Drug: Lidocaine Infiltration (2 %) 10 ml 5 ml Infiltration once; to bedside. with tl4 epinephrine {Note: administered by HERON Kothari to affected site.} Volume: 5 ml; Route: Infiltration; 21:48 Follow up: Response: No adverse reaction tl4 21:54 Drug: HYDROcodone-acetaminophen PO 5 mg-325 mg 1 tabs PO once Route: PO; tl4 22:36 Follow up: Response: No adverse reaction; Pain is decreased tl4 Medication: 22:31 VIS not applicable for this client. tl4 Outcome: 21:07 Discharge ordered by . cp 22:34 Discharged to home via wheelchair, with family, tl4 22:34 Condition: stable 22:34 Discharge instructions given to patient, family, Instructed on discharge instructions, follow up and referral plans. wound care, splint care Demonstrated understanding of instructions, follow-up care, wound care, splint care, 22:35 Patient left the ED. tl4 Signatures: Dispatcher [employer] EDVA Deniz Coyne PA PA cp Benton, Danielle, RN RN db Logdahl, Juliano, RN RN tl4
--- NOTE | 2024-09-19 21:08 | EDPHYS ---
Physician Documentation [facility] Name: Monie Dailey Age: 74 yrs Sex: Female : 1950 Arrival Date: 09/19/2024 Time: 18:40 Bed 13 Private MD: ED Physician Juan Moscoso HPI: 09/19 19:00 This 74 yrs old Female presents to ER via EMS with complaints of Laceration To Hand. cp 19:00 The patient has a laceration related to: sharp edge of glass or piece of metal. The cp laceration(s) is(are) located on the dorsal side of right hand. Onset: The symptoms/episode began/occurred just prior to arrival. Associated signs and symptoms: Pertinent negatives: dizziness, heavy bleeding, numbness distal to injury, suspected foreign body. Historical: - Allergies: 18:45 Aspirin; db 18:45 crab; db 18:45 Codeine; db 18:45 Iodine; db 18:45 Ibuprofen; db 18:45 PENICILLINS; db 18:45 Latex; db 18:45 teramycin; db - Home Meds: 22:35 amlodipine 5 mg tab 1 tab once daily [Active]; metoprolol tartrate 50 mg Oral tab 1 tab tl4 2 times per day [Active]; Ritalin 10 mg Oral tab 1 tab 2 times per day [Active]; Repatha Syringe 140 mg/mL subcutaneous Syringe [Active]; Protonix 40 mg Oral TbEC 1 tab once daily [Active]; montelukast 10 mg Oral tab 1 tab once daily [Active]; - PMHx: 18:45 breast cancer; Hypertension; narcolepsy; neuropathy; db - Immunization history:: Adult Immunizations unknown. - Infectious Disease History:: Denies. - Social history:: Smoking status: Patient denies any tobacco usage or history of. ROS: 19:05 MS/extremity: Positive for ecchymosis, laceration, swelling, of the dorsal side of cp right hand, Negative for decreased range of motion, paresthesias, 19:05 Constitutional: Negative for body aches, chills, fever, cp 19:05 Respiratory: Negative for cough, shortness of breath, wheezing, 19:05 Neuro: Negative for numbness, weakness, 19:05 All other systems are negative, Exam: 19:10 Constitutional: The patient appears in no acute distress, alert, awake, non-toxic, well cp developed, well nourished, 19:10 Head/Face: Normocephalic, atraumatic. cp 19:10 Chest/axilla: Inspection: normal, 19:10 Cardiovascular: Rate: normal, Pulses: Pulses are 2+ in right radial artery. 19:10 Respiratory: the patient does not display signs of respiratory distress, Respirations: normal, no use of accessory muscles, no retractions, 19:10 Musculoskeletal/extremity: Extremities: noted in the dorsal side of right hand: ecchymosis, laceration, swelling, There is no evidence of decreased ROM, deformity, ROM: full active range of motion, in the right hand, Perfusion: the extremity is normally perfused throughout, Sensation intact. Vital Signs: 18:45 BP 167 / 97; Pulse 69; Resp 16; Temp 98; Pulse Ox 100% ; Weight 90.72 kg; Height 6 ft. db 1 in. ; 20:30 BP 165 / 89; Pulse 90; Resp 20; Pulse Ox 97% on R/A; tl4 22:30 BP 156 / 81; Pulse 78; Resp 18; Temp 98.3(O); Pulse Ox 99% on R/A; tl4 18:45 Body Mass Index 26.39 (90.72 kg, 185.42 cm) db Laceration: 21:04 Wound Repair of 4cm ( 1.6in ) subcutaneous laceration to dorsal side of right hand. cp Linear shaped.. Distal neuro/vascular/tendon intact. Anesthesia: Wound infiltrated with 5 mls of 2% lidocaine. Wound prep: Moderate cleansing with hibiclenz by me, Wound irrigation by me. Skin closed with 5 4-0 Prolene using simple sutures and sterile technique. Dressed with Bacitracin, 4x4's, coban. Patient tolerated well. MDM: 18:48 Medical Screening Exam initiated cp 19:00 Differential diagnosis: superficial laceration, tendon injury, vascular injury, open cp fracture, foreign body. 21:07 Data reviewed: vital signs, nurses notes, radiologic studies, plain films, and as a cp result, I will discharge patient. 09/19 18:54 Order name: XRAY Hand RIGHT 3 View; Complete Time: 20:23 cp 09/19 20:23 Interpretation: Report reviewed. cp 09/19 18:55 Order name: Dressing - Wound; Complete Time: 21:49 cp 09/19 18:55 Order name: Gloves, Sterile; Complete Time: 21:01 cp 09/19 18:55 Order name: Setup Suture Tray; Complete Time: 21:01 cp 09/19 20:05 Order name: Wound Care: please clean and irrigate wound; Complete Time: 21:49 cp 09/19 21:00 Order name: Splint - Thumb Spica: right cp Administered Medications: 21:00 Drug: Lidocaine Infiltration (2 %) 10 ml 5 ml Infiltration once; to bedside. with tl4 epinephrine {Note: administered by HERON Kothari to affected site.} Volume: 5 ml; Route: Infiltration; 21:48 Follow up: Response: No adverse reaction tl4 21:54 Drug: HYDROcodone-acetaminophen PO 5 mg-325 mg 1 tabs PO once Route: PO; tl4 22:36 Follow up: Response: No adverse reaction; Pain is decreased tl4 Disposition: 09/20 20:00 Chart complete. cp Disposition Summary: 09/19/24 21:07 Discharge Ordered Notes: Location: Home cp Problem: new cp Symptoms: have improved cp Condition: Stable cp Diagnosis - Laceration without foreign body of right hand, initial encounter cp Followup: cp - With: Private Physician - When: 10 - 14 days - Reason: Staple/Suture removal Discharge Instructions: - Discharge Summary Sheet cp - Laceration Care, Adult cp - Sutured Wound Care cp Forms: - Medication Reconciliation Form cp - Antibiotic Education cp - Prescription Opioid Use cp - Patient Portal Instructions cp - Leadership Thank You Letter cp Addendum: 09/21/2024 20:49 Co-signature as Attending Physician, Juan Moscoso MD I reviewed the patient's care r t provided by the Advanced Practice Provider and agree with the diagnosis and treatment plan. Signatures: Dispatcher [employer] EDFL Deniz Coyne PA PA cp Shweta Richter RN RN db [place], Ryan, MD MD rt Juliano Coleman RN RN tl4
[2024-09-19] MEDS ORDERED: HYDROCODONE/APAP 5/325 MG TAB ONE (21:52)
[2024-09-19 23:08] VITALS: BP 156/81; TEMP 98.3; O2SAT 99
== END 2024-09-19 22:35 | disposition home or self-care (01) ==
LOC: ER 18:40
DX: S61.411A Laceration without foreign body of right hand, initial encounter (principal)
CPT/HCPCS: 73130; 99284; 12002; J2003

== ENCOUNTER 2024-11-21 18:58 | Emergency (ER) | payer OTHER ==
[2024-11-21] MEDS ORDERED: DIPHENHYDRAMINE 50 MG/ML VIAL ONE (19:29)
[2024-11-21] MEDS ORDERED: METOCLOPRAMIDE 10 MG/2mL INJ ONE (19:29)
[2024-11-21] MEDS ORDERED: NA CHLORIDE 0.9% 1,000 ML ONE (19:29)
[2024-11-21 19:47] LABS: Absolute Basophils 0.1 K/uL (0-0.5); Absolute Eosinophils 0.1 K/uL (0-0.5); Absolute Lymphocytes (CBC) 1.8 K/uL (0.7-4.9); Absolute Monocytes 0.4 K/uL (0.1-1.3); Absolute Neutrophil 5.2 K/uL (1.8-8.0); Basophils % 0.8 % (0-1.3); Hematocrit 34.6 % (36.0-45.0); Hemoglobin 11.9 g/dL (12.0-15.0); Lymphocytes % 23.5 % (15.3-44.8); MCH 33.3 pg (27.0-35.0); MCHC 34.5 g/dL (32.0-36.0); MCV 96.6 fL (80-100); MPV 7.1 fL (7.6-11.3); Monocytes % 5.8 % (3.3-12.3); Neutrophils % 68.9 % (41.7-73.7); Nucleated Red Blood Cells % 0.1 % (0-0); Platelets 292 thou/uL (152-406); RBC Red Blood Cell Count 3.59 M/uL (3.86-4.86); Red Cell Distribution Width 13.4 % (12.1-15.2)
[2024-11-21 20:03] LABS: AST/SGOT 14 U/L (15-37); Albumin 3.7 g/dL (3.4-5.0); Albumin/Globulin Ratio 1.1 (1.1-1.8); Alkaline Phosphatase 66 U/L (45-117); Anion Gap 9.3 mEq/L (5.0-15.0); BUN Blood Urea Nitrogen 21 mg/dL (7-18); Bicarbonate 28 mEq/L (21-32); Bilirubin Total 0.3 mg/dL (0.2-1.0); Globulin 3.3 g/dL (2.3-3.5); Glomerular Filtration Rate 57 ml/min (=/>90); Glucose Level 118 mg/dL (74-106); Lipase 28 U/L (13-75); Potassium 3.3 mEq/L (3.5-5.1); Sodium Level 137 mEq/L (136-145)
[2024-11-21 20:05] LABS: ALT/SGPT < 14 U/L (13-56)
[2024-11-21 20:25] LABS: SARS-CoV-2 Antigen CONTROL BLUE LINE VIS/BG OK; SARS-CoV-2 Antigen Rapid Res Negative (Negative)
[2024-11-21] MEDS ORDERED: KCL 20 MEQ/100 mL IVPB 100 ML IV ONE (20:31)
[2024-11-21] MEDS ORDERED: POTASSIUM CL SA 10 MEQ TAB PO ONE (20:31)
[2024-11-21] MEDS ORDERED: Magnesium Sulfate 2gm IVPB 2 G/50 ML BAG IV ONE (20:31)
[2024-11-21] MEDS ORDERED: NA CHLORIDE 0.9% 500 ML ONE (20:32)
--- NOTE | 2024-11-21 20:38 | RAD REPORT ---
EXAM: CT Head Brain Wo Cont HISTORY: CONFUSED COMPARISON: 04/28/2024 TECHNIQUE: Multiple contiguous axial images were obtained for a CT of the brain without contrast. Sag ittal and coronal reformats were performed. One or more of the following dose reduction techniques were used: Automated exposure control, adjus tment of the mA and kV according to patient size, and iterative reconstruction. Unless otherwise specified, incidental findings do not require dedicated imaging follow-up. FINDINGS: No evidence of hydrocephalus, intracranial hemorrhage, or extra-axial fluid collection. The brain is normal in morphology. The calvarium is intact. The visualized paranasal sinuses and mastoid air cells are essentially clear . IMPRESSION: No evidence of acute intracranial abnormality.
[2024-11-21 20:44] LABS: Barbiturates NEGATIVE (NEGATIVE); Benzodiazepines NEGATIVE (NEGATIVE); Cocaine NEGATIVE (NEGATIVE); METHAMPHETAM NEGATIVE (NEGATIVE); Methadone NEGATIVE (NEGATIVE); Opiates NEGATIVE (NEGATIVE); Phencyclidine NEGATIVE (NEGATIVE); THC Cannibis NEGATIVE (NEGATIVE)
--- NOTE | 2024-11-21 20:49 | RAD REPORT ---
EXAMINATION: CT Abdomen Pelvis Wo Contrast CLINICAL INDICATION: Female, 74 years old. ABD PAIN TECHNIQUE: CT abdomen and pelvis was performed, without IV contrast, as per department protocol. Axia l, sagittal and coronal reconstructions were obtained. One or more of the following dose reduction techniques were used: Automated exposure control, adjustment of the mA and kV according to the patien t size, and iterative reconstruction. Unless otherwise specified, incidental findings do not require dedicated imaging follow-up. COMPARISON: Pelvis MRI left hip MRI 10/19/2024 FINDINGS: The lack of intravenous contrast limits the sensitivity of this exam for evaluation of solid visceral organs, vascular structures, and retroperitoneum. LOWER CHEST: Left lower lobe subpleural rounded 11 mm lung nodule, and right central lower lobe 1 cm nodule, stable. LIVER: Normal in size and contour. No suspicious focal lesion. Stable 1.6 cm cyst near the falciform ligament margin. BILIARY SYSTEM: No suspicious abnormalities. SPLEEN: Normal size. No focal lesion. PANCREAS: No mass, ductal dilation, or skye-pancreatic fluid. ADRENALS: 2.7 cm right adrenal hypoattenuating lesion, stable. Left adrenal gland is normal in appear ance. KIDNEYS AND URETERS: Normal size and contour. No hydronephrosis. URINARY BLADDER: Normal contour. GASTROINTESTINAL TRACT: No evidence of bowel obstruction, significant free fluid, free air or abscess . APPENDIX: Normal appendix. LYMPH NODES: No lymphadenopathy. MUSCULOSKELETAL: Healing left inferior and superior pubic ramus fractures. ADDITIONAL FINDINGS: None. IMPRESSION: No acute or concerning abnormalities in the abdomen or pelvis, with evaluation limited by lack of IV contrast. Healing left inferior and superior pubic ramus fractures, previously seen left hip MRI. Other stable findings as above.
[2024-11-21 20:51] LABS: Specific Gravity 1.023 (1.005-1.030); Sqamous Epithelial <5 /HPF (None Seen); Urine Bacteria <20 /HPF (<20); Urine Bilirubin NEGATIVE (Negative); Urine Blood Negative (Negative); Urine Clarity Turbid (Clear); Urine Color Light-Yellow (Yellow); Urine Culture Reflex Order NOT NEEDED; Urine Glucose NEGATIVE (Negative); Urine Ketones NEGATIVE (Negative); Urine Micro Reflex YN NO BILL MICROSCOPIC; Urine Mucus Slight /HPF (None Seen); Urine Nitrite NEGATIVE (Negative); Urine Protein NEGATIVE (Negative); Urine RBC <5 /HPF (None Seen); Urine Urobilinogen Normal (Normal); Urine WBC <5 /HPF (<5)
--- NOTE | 2024-11-21 21:26 | ER ---
Nurse's Notes [facility] Name: Monie Dailey Age: 74 yrs Sex: Female : 1950 Arrival Date: 11/21/2024 Time: 18:58 Bed 11 Private MD: Diagnosis: Nausea with vomiting, unspecified;Hypokalemia Presentation: 11/21 19:06 Chief complaint: EMS states: nausea and vomiting, reports drinking some alcoholic ha1 drinks. glucose level 105, low heart rate at 47. 19:06 Coronavirus screen: Client denies travel out of the [place] in the last 14 days. Ebola ha1 Screen: No symptoms or risks identified at this time. Initial Sepsis Screen: Does the patient meet any 2 criteria? No. Patient's initial sepsis screen is negative. Does the patient have a suspected source of infection? No. Patient's initial sepsis screen is negative. Risk Assessment: Do you want to hurt yourself or someone else? Patient reports no desire to harm self or others. Onset of symptoms was November 21, 2024. 19:06 Method Of Arrival: EMS: [facility] ha1 19:06 Acuity: MINGO 3 ha1 Triage Assessment: 19:06 General: Appears uncomfortable, Behavior is cooperative. Pain: Complains of pain in ha1 left leg Pain does not radiate. Pain currently is 4 out of 10 on a pain scale. Quality of pain is described as aching. Neuro: Level of Consciousness is awake, alert, obeys commands, Oriented to person, place, situation. Cardiovascular: Capillary refill < 3 seconds Patient's skin is warm and dry. Respiratory: Airway is patent Respiratory effort is even, unlabored, Respiratory pattern is regular, symmetrical. GI: Abdomen is round non-distended, obese, Reports nausea, vomiting. : No signs and/or symptoms were reported regarding the genitourinary system. Derm: Skin is pink, warm \T\ dry. Musculoskeletal: Circulation, motion, and sensation intact. Historical: - Allergies: 19:21 Aspirin; ha1 19:21 Codeine; ha1 19:21 crab; ha1 19:21 Ibuprofen; ha1 19:21 Iodine; ha1 19:21 Latex; ha1 19:21 PENICILLINS; ha1 19:21 teramycin; ha1 - Home Meds: 19:21 amlodipine 5 mg tab 1 tab once daily [Active]; metoprolol tartrate 50 mg Oral tab 1 tab ha1 2 times per day [Active]; montelukast 10 mg Oral tab 1 tab once daily [Active]; Protonix 40 mg Oral TbEC 1 tab once daily [Active]; Ritalin 10 mg Oral tab 1 tab 2 times per day [Active]; Repatha Syringe 140 mg/mL subcutaneous Syringe [Active]; - PMHx: 19:21 breast cancer; Hypertension; narcolepsy; neuropathy; ha1 - Immunization history:: Adult Immunizations up to date. - Infectious Disease History:: Denies. - Social history:: Smoking status: Patient denies any tobacco usage or history of. Screenin:06 [facility] ED Fall Risk Assessment (Adult) History of falling in the last 3 months, ha1 including since admission Yes- single mechanical fall (1 pt) Confusion or Disorientation No (0 pts) Intoxicated or Sedated Yes (3 pts) Impaired Gait No (0 pts) Mobility Assist Device Used No (0 pt) Altered Elimination Yes (1 pt) Score/Fall Risk Level 3 or more points = High Risk Oriented to surroundings, Maintained a safe environment, Educated pt \T\ family on fall prevention, incl call for assistance when getting out of bed, Hourly rounding (assess needs \T\ fall precautionary measures) done. Abuse screen: Denies threats or abuse. Denies injuries from another. Nutritional screening: No deficits noted. Tuberculosis screening: No symptoms or risk factors identified. Assessment: 19:06 Reassessment: see triage assessment. ha1 20:20 Reassessment: Patient and/or family updated on plan of care and expected duration. Pain ha1 level reassessed. Patient is alert, oriented x 3, equal unlabored respirations, skin warm/dry/pink. 20:20 Reassessment: Patient states feeling better. Patient states symptoms have improved. GI: ha1 Abdomen is round non-distended. 21:30 Reassessment: Patient and/or family updated on plan of care and expected duration. Pain ha1 level reassessed. Patient is alert, oriented x 3, equal unlabored respirations, skin warm/dry/pink. Patient states feeling better. Patient states symptoms have improved. 21:30 Neuro: Level of Consciousness is awake, alert, obeys commands, Oriented to person, ha1 place, time, situation. Vital Signs: 19:06 BP 151 / 66; Pulse 48; Resp 17 S; Temp 97.2(T); Pulse Ox 98% on 2 lpm NC; Weight 74.84 ha1 kg; Height 5 ft. 5 in. ; 20:20 BP 135 / 66; Pulse 54; Resp 18 S; Pulse Ox 97% on R/A; ha1 21:19 BP 129 / 59; Pulse 75; Resp 18 S; Pulse Ox 98% on R/A; ha1 19:06 Body Mass Index 27.46 (74.84 kg, 165.1 cm) ha1 ED Course: 19:06 Patient arrived in ED. ll1 19:06 Patient has correct armband on for positive identification. Placed in gown. Bed in low ha1 position. Call light in reach. Side rails up X2. 19:06 Client placed on continuous cardiac and pulse oximetry monitoring. NIBP monitoring ha1 applied. design consultant on. 19:06 Inserted saline lock: 20 gauge in left forearm, using aseptic technique. Blood ha1 collected. Flushed with 10 mL NS. 19:12 Moe Payton MD is Attending Physician. ec2 19:16 Tran Lagunas, SUMANTH is Primary Nurse. ha1 19:21 Triage completed. ha1 19:40 CT Head Brain wo Cont In Process Unspecified. EDMS 19:44 CT Abd/Pelvis - Without Contrast In Process Unspecified. EDMS 21:35 Provided Education on: medication administration . ha1 21:35 Arm band placed on right wrist. ha1 21:35 No provider procedures requiring assistance completed. IV discontinued, intact, ha1 bleeding controlled, No redness/swelling at site. Pressure dressing applied. Administered Medications: 19:40 Drug: NS 0.9% IV 1000 ml IV at 1 bolus Per protocol; to be given as a bolus over 60 ha1 minutes Route: IV; Rate: 1 bolus; Site: left forearm; 21:54 Follow up: Response: No adverse reaction; IV Status: Completed infusion; IV Intake: ha1 1000ml 19:50 Drug: diphenhydrAMINE IVP 25 mg IVP once Route: IVP; Site: left femoral; ha1 20:20 Follow up: Response: No adverse reaction ha1 19:52 Drug: metoCLOPramide IVP 10 mg IVP once; over 1 to 2 minutes Route: IVP; Site: left ha1 forearm; 20:20 Follow up: Response: No adverse reaction; Marked relief of symptoms ha1 20:35 Drug: Potassium Chloride PO 40 mEq PO once Route: PO; ha1 21:51 Follow up: Response: No adverse reaction ha1 20:40 Drug: Potassium Chloride IV 20 mEq IV at calculated rate once; administer over 1-2 ha1 hours Route: IV; Rate: calculated rate; Site: left forearm; 21:52 Follow up: Response: No adverse reaction; IV Status: Completed infusion; IV Intake: ha1 100ml 20:48 Drug: Magnesium Sulfate IVPB 2 grams IVPB once over 30 mins Route: IVPB; Infused Over: ha1 30 mins; Site: left forearm; 21:52 Follow up: Response: No adverse reaction; IV Status: Completed infusion; IV Intake: [id number] Medication: 19:26 VIS not applicable for this client. ha1 Intake: 21:52 IV: 100ml; Total: 100ml. ha1 21:52 IV: 50ml; Total: 150ml. ha1 21:54 IV: 1000ml; Total: 1150ml. ha1 Outcome: 21:26 Discharge ordered by . ec2 21:35 Condition: stable ha1 21:55 Discharged to home via wheelchair, with family, ha1 21:55 Discharge instructions given to patient, family, Instructed on discharge instructions, follow up and referral plans. 21:55 Patient left the ED. ha1 Signatures: Dispatcher [employer] Aditi Sotomayor RN RN 1 Tran Lagunas RN RN 1 Moe Payton MD MD ec2 Corrections: (The following items were deleted from the chart) 21:34 21:20 BP 135 / 66; Pulse 54bpm; Resp 18bpm; Spontaneous; Pulse Ox 97% RA; ha1 ha1 21:36 21:15 BP 129 / 59; Pulse 75bpm; Resp 18bpm; Spontaneous; Pulse Ox 98% RA; ha1 ha1
--- NOTE | 2024-11-21 21:26 | EDPHYS ---
Physician Documentation [facility] Name: Monie Dailey Age: 74 yrs Sex: Female : 1950 Arrival Date: 11/21/2024 Time: 18:58 Bed 11 Private MD: ED Physician Moe Payton HPI: 11/21 19:16 This 74 yrs old Female presents to ER via Unassigned with complaints of ec2 Nausea/Vomiting. 19:16 Patient arrives today for evaluation of nausea and vomiting onset of earlier this ec2 afternoon. Reports that she did have some abdominal pain as well. Denies any falls injuries or trauma. Denies any urinary complaints. . 19:29 Patient also states that she has some chronic pain that she has been treated with ec2 alcohol today.. Historical: - Allergies: 19:21 Aspirin; ha1 19:21 Codeine; ha1 19:21 crab; ha1 19:21 Ibuprofen; ha1 19:21 Iodine; ha1 19:21 Latex; ha1 19:21 PENICILLINS; ha1 19:21 teramycin; ha1 - Home Meds: 19:21 amlodipine 5 mg tab 1 tab once daily [Active]; metoprolol tartrate 50 mg Oral tab 1 tab ha1 2 times per day [Active]; montelukast 10 mg Oral tab 1 tab once daily [Active]; Protonix 40 mg Oral TbEC 1 tab once daily [Active]; Ritalin 10 mg Oral tab 1 tab 2 times per day [Active]; Repatha Syringe 140 mg/mL subcutaneous Syringe [Active]; - PMHx: 19:21 breast cancer; Hypertension; narcolepsy; neuropathy; ha1 - Immunization history:: Adult Immunizations up to date. - Infectious Disease History:: Denies. - Social history:: Smoking status: Patient denies any tobacco usage or history of. ROS: 19:16 Constitutional: as per hpi ec2 Exam: 19:16 Constitutional: GEN: NAD Head: atraumatic Eyes: EOMI Ears: External ears are ec2 normal. CV: regular rate LUNGS: no respiratory distress ABD: non-distended, soft, generally tender, not guarding, not rigid SKIN: no evidence of rashes MSK: no evidence of trauma Vital Signs: 19:06 BP 151 / 66; Pulse 48; Resp 17 S; Temp 97.2(T); Pulse Ox 98% on 2 lpm NC; Weight 74.84 ha1 kg; Height 5 ft. 5 in. ; 20:20 BP 135 / 66; Pulse 54; Resp 18 S; Pulse Ox 97% on R/A; ha1 21:19 BP 129 / 59; Pulse 75; Resp 18 S; Pulse Ox 98% on R/A; ha1 19:06 Body Mass Index 27.46 (74.84 kg, 165.1 cm) ha1 MDM: 19:15 Medical Screening Exam initiated ec2 19:16 Data reviewed: vital signs, nurses notes. ED course: Patient arrives today for ec2 evaluation of nausea and vomiting along with abdominal pain. Examination yields abdominal findings as above. Obtain lab work, urine studies, CT abdomen pelvis as well as CT of the head. Patient does appear little drowsy as well, investigating for processes such as intra-abdominal infection, intracranial mass, urinary tract infection as well.. 20:12 ED course: EKG independently reviewed and interpreted by me, shows normal sinus rhythm, ec2 rate of 81, no acute ST segment elevations, intervals are pertinent for QTc prolongation of 513, metabolic profile shows hypokalemia with potassium of 3.3, will supplement magnesium and potassium.. 21:04 ED course: On reassessment patient with marked improvement in her symptoms. Will ec2 discharge home have the patient follow-up PCP.. 11/21 19:13 Order name: CBC with Diff; Complete Time: 20:09 ec2 11/21 19:13 Order name: CMP; Complete Time: 20:09 ec2 11/21 19:13 Order name: Lipase; Complete Time: 20:09 ec2 11/21 19:13 Order name: Influenza Screen (a \T\ B); Complete Time: 20:28 ec2 11/21 19:13 Order name: SARS RAPID; Complete Time: 20:28 ec2 11/21 19:13 Order name: UDS; Complete Time: 20:48 ec2 11/21 19:13 Order name: UAM; Complete Time: 20:55 ec2 11/21 19:22 Order name: Ethanol ec2 11/21 19:31 Order name: Troponin High Sensitivity; Complete Time: 20:48 ec2 11/21 19:13 Order name: CT Abd/Pelvis - Without Contrast; Complete Time: 20:55 ec2 11/21 19:13 Order name: CT Head Brain wo Cont; Complete Time: 20:48 ec2 11/21 19:13 Order name: IV Saline Lock; Complete Time: 19:44 ec2 11/21 19:13 Order name: Labs collected and sent; Complete Time: 19:44 ec2 11/21 19:31 Order name: EKG - Nurse/Tech; Complete Time: 20:13 ec2 Administered Medications: 19:40 Drug: NS 0.9% IV 1000 ml IV at 1 bolus Per protocol; to be given as a bolus over 60 ha1 minutes Route: IV; Rate: 1 bolus; Site: left forearm; 21:54 Follow up: Response: No adverse reaction; IV Status: Completed infusion; IV Intake: ha1 1000ml 19:50 Drug: diphenhydrAMINE IVP 25 mg IVP once Route: IVP; Site: left femoral; ha1 20:20 Follow up: Response: No adverse reaction ha1 19:52 Drug: metoCLOPramide IVP 10 mg IVP once; over 1 to 2 minutes Route: IVP; Site: left ha1 forearm; 20:20 Follow up: Response: No adverse reaction; Marked relief of symptoms ha1 20:35 Drug: Potassium Chloride PO 40 mEq PO once Route: PO; ha1 21:51 Follow up: Response: No adverse reaction ha1 20:40 Drug: Potassium Chloride IV 20 mEq IV at calculated rate once; administer over 1-2 ha1 hours Route: IV; Rate: calculated rate; Site: left forearm; 21:52 Follow up: Response: No adverse reaction; IV Status: Completed infusion; IV Intake: ha1 100ml 20:48 Drug: Magnesium Sulfate IVPB 2 grams IVPB once over 30 mins Route: IVPB; Infused Over: ha1 30 mins; Site: left forearm; 21:52 Follow up: Response: No adverse reaction; IV Status: Completed infusion; IV Intake: [id number] Disposition Summary: 11/21/24 21:26 Discharge Ordered Notes: Location: Home ec2 Condition: Stable ec2 Diagnosis - Nausea with vomiting, unspecified ec2 - Hypokalemia ec2 Followup: ec2 - With: Private Physician - When: - Reason: Re-evaluation by your physician Discharge Instructions: - Discharge Summary Sheet ec2 - Nausea and Vomiting, Adult ec2 Forms: - Medication Reconciliation Form ec2 - Antibiotic Education ec2 - Prescription Opioid Use ec2 - Patient Portal Instructions ec2 - Leadership Thank You Letter ec2 Critical care time excluding procedures: 21:26 Critical care time: Bedside Care: 30 minutes. Total time: 30 minutes ec2 Signatures: Dispatcher [employer] Tran Adams RN RN ha1 Moe Payton MD MD ec2 Corrections: (The following items were deleted from the chart) 20:26 19:13 Urinalysis+U.LAB.BRZ ordered. DHIRAJ HEARN
[2024-11-24 15:38] VITALS: BP 129/59; TEMP 97.2; O2SAT 98
== END 2024-11-21 21:55 | disposition home or self-care (01) ==
LOC: ER 18:58
DX: E87.6 Hypokalemia (principal); R11.2 Nausea with vomiting, unspecified; I10 Essential (primary) hypertension; G47.419 Narcolepsy without cataplexy; G62.9 Polyneuropathy, unspecified; Z85.3 Personal history of malignant neoplasm of breast
CPT/HCPCS: 85025; 81001; 36415; 84484; 83690; 80053; 80307; 87804 ×2; 70450; 74176; 99285; 82077; 87811; J3480; J3475; J2765; J1200; J7040; J7030; 93005

== ENCOUNTER 2024-12-15 05:34 | Day surgery (SDC) | payer OTHER ==
[2024-12-09 10:22] LABS: Absolute Eosinophils 0.1 K/uL (0-0.5); Absolute Lymphocytes (CBC) 1.3 K/uL (0.7-4.9); Absolute Monocytes 0.4 K/uL (0.1-1.3); Absolute Neutrophil 2.9 K/uL (1.8-8.0); Basophils % 0.4 % (0-1.3); Eosinophils % 2.1 % (0-4.4); Hematocrit 35.1 % (36.0-45.0); Hemoglobin 12.2 g/dL (12.0-15.0); Lymphocytes % 27.9 % (15.3-44.8); MCH 33.3 pg (27.0-35.0); MCHC 34.9 g/dL (32.0-36.0); MCV 95.6 fL (80-100); MPV 7.2 fL (7.6-11.3); Monocytes % 7.8 % (3.3-12.3); Neutrophils % 61.8 % (41.7-73.7); Nucleated Red Blood Cells % 0.1 % (0-0); Platelets 311 thou/uL (152-406); RBC Red Blood Cell Count 3.67 M/uL (3.86-4.86); Red Cell Distribution Width 12.9 % (12.1-15.2)
[2024-12-09 10:41] LABS: Specific Gravity 1.018 (1.005-1.030); Urine Bacteria None Seen /HPF (<20); Urine Bilirubin NEGATIVE (Negative); Urine Blood Negative (Negative); Urine Clarity Turbid (Clear); Urine Color Light-Yellow (Yellow); Urine Culture Reflex Order NOT NEEDED; Urine Glucose NEGATIVE (Negative); Urine Ketones NEGATIVE (Negative); Urine Microscopic Reflex YN ORDER UMIC; Urine Nitrite NEGATIVE (Negative); Urine Protein NEGATIVE (Negative); Urine RBC <5 /HPF (None Seen); Urine Urobilinogen Normal (Normal); Urine WBC <5 /HPF (<5); Urine pH 5.5 (5.0-7.0)
[2024-12-09 10:42] LABS: PT Prothrombin Time 10.5 SECONDS (9.4-12.5); PTT, Activated Partial Thromb 36.8 SECONDS (24.3-36.9)
[2024-12-09 10:45] LABS: Albumin 3.7 g/dL (3.4-5.0); Albumin/Globulin Ratio 1.1 (1.1-1.8); Alkaline Phosphatase 63 U/L (45-117); Anion Gap 9.3 mEq/L (5.0-15.0); BUN Blood Urea Nitrogen 30 mg/dL (7-18); Bicarbonate 27 mEq/L (21-32); Bilirubin Total 0.4 mg/dL (0.2-1.0); Globulin 3.3 g/dL (2.3-3.5); Glomerular Filtration Rate 53 ml/min (=/>90); Glucose Level 105 mg/dL (74-106); Potassium 4.3 mEq/L (3.5-5.1); Sodium Level 133 mEq/L (136-145)
[2024-12-09 10:48] LABS: ALT/SGPT < 14 U/L (13-56); AST/SGOT < 10 U/L (15-37)
--- NOTE | 2024-12-09 11:39 | RAD REPORT ---
EXAM: Chest Pa And Lat (2 Views) HISTORY: 74 years Female pre op for surgery COMPARISON: 05/06/2024 FINDINGS: LUNGS/PLEURA: The lungs are clear. No pleural effusions or pneumothorax. No pulmonary edema. MEDIASTINUM: The mediastinal silhouette is within normal limits CARDIAC: The cardiac silhouette is within normal limits. UPPER ABDOMEN: No significant abnormality. BONES: No acute abnormality. LINES/TUBES/OTHER: N/A IMPRESSION: No evidence of acute cardiopulmonary disease.
[2024-12-15] MEDS: ACETAMINOPHEN 500 MG TAB ONE (06:02)
[2024-12-15] MEDS: CELECOXIB 100 MG CAPSULE ONE (06:02)
[2024-12-15] MEDS: Ringers Lactate 1,000 ML IV ONE (06:10)
[2024-12-15] MEDS: dexAMETHasone 10 MG/ML VIAL ONE (06:11)
[2024-12-15] MEDS: DEXMEDETOMIDINE HCL 200 MCG/2 ML VIAL ONE (06:12)
[2024-12-15] MEDS: EPINEPHRINE 1 MG/ML VIAL ONE (06:12)
[2024-12-15] MEDS: MIDAZOLAM HCL 2 MG/2 ML INJ ONE (06:12)
[2024-12-15] MEDS: LIDOCAINE 1% MPF 5 ML VIAL ONE (06:12)
[2024-12-15] MEDS: BUPIVACAINE 0.25% PF 30 ML VIAL ONE (06:13)
[2024-12-15] MEDS: BUPIVACAINE 0.5% PF 10 ML VIAL ONE (06:13)
[2024-12-15] MEDS: MAGNESIUM SULFATE 1 gm IVPB 1 GM/100 ML BAG IV ONE (06:13)
[2024-12-15] MEDS: TRANEXAMIC ACID 1,000 MG/10 ML VIAL IV ONE (06:27)
[2024-12-15] MEDS ORDERED: ONDANSETRON 4 MG/2 ML VIAL ONE (06:57)
[2024-12-15] MEDS ORDERED: dexAMETHasone 10 MG/ML VIAL ONE (06:57)
[2024-12-15] MEDS ORDERED: LIDOCAINE 2% MPF 5 ML VIAL ONE ×2 (06:57)
[2024-12-15] MEDS ORDERED: propofoL 200 MG/20 ML VIAL IV ONE (06:57)
[2024-12-15] MEDS ORDERED: KETOROLAC 30 MG/ML INJ ONE (06:57)
[2024-12-15] MEDS ORDERED: KETAMINE HCL IN 0.9 % NACL 50 MG/5 ML SYRINGE IV ONE (06:58)
[2024-12-15] MEDS: CLINDAMYCIN 900MG/D5W 900 MG/50 ML IVPB IV ONE (07:00)
[2024-12-15] MEDS ORDERED: DOCUSATE NA 100 MG CAP PO PRN (09:16)
[2024-12-15] MEDS ORDERED: ONDANSETRON 4 MG/2 ML VIAL IV PRN (09:16)
--- NOTE | 2024-12-15 09:16 | P.BOP ---
Preoperative diagnosis: right knee arthritis Postoperative diagnosis: same Primary procedure: right total knee arthoplasty Estimated blood loss: 50ccs Anesthesia: General Complications: None Transferred to: Recovery Room Condition: Good
[2024-12-15] MEDS: HYDROMORPHONE HCL 1 MG/ML INJ ONE (09:45)
[2024-12-15] MEDS: FENTANYL CITR 100 MCG/2 ML ONE ×2 (10:12→10:15)
[2024-12-15 12:29] VITALS: BMI 27.8
[2024-12-15] MEDS: HYDROCODONE/APAP 7.5/325 MG TAB PO PRN (13:44)
--- NOTE | 2024-12-15 14:24 | OP ---
Date of Procedure: 12/15/2024 Surgeon: Justo Laura MD Preoperative Diagnosis: Right knee arthritic changes, unresponsive to conservative measures. Postoperative Diagnosis: Right knee arthritic changes, unresponsive to conservative measures. Procedure: Right total knee arthroplasty using the [employer] Vanguard System. Estimated Blood Loss: 50 cc. Complications: There were no complications. Specimens: No pathology specimens sent. Indication For Operation: The patient has essentially exhausted conservative management for her arth ritic symptoms related to her knee. She was offered arthroscopy, however declined stating that she w ould like to have the arthritis taken care of and does not want surgery for any mechanical type sympt oms, and requested total knee arthroplasty. Risks, benefits, and alternatives of this procedure have been discussed with the patient. She states she understands things as presented, wishes to proceed. Description Of Procedure: The patient obtained a block in the holding area and was taken to the oper ating room, where general anesthesia was easily obtained by the anesthesia staff. Following this, we ll-padded tourniquet was placed on the superior right thigh. Right lower extremity was then prepped and draped in usual sterile fashion for procedure. Following this, the knee was gently exsanguinated using an Jeffry wrap. The knee was bent. Tourniquet was raised. A standard anterior incision was karen en down carefully through skin and soft tissue. Meticulous hemostasis being maintained using Bovie e lectrocautery. This led to the extensor mechanism, which was exposed at the appropriate level. It w as then marked at the superior medial pole, and a standard medial parapatellar arthrotomy was then pe rformed with liberation approximately 20 cc of rather normal-appearing synovial fluid. The anterior cruciate ligament, medial and lateral menisci were then excised and some osteophytes were removed fro m the lateral femur and patella. Following this, an intramedullary alignment guide was then placed w ithout difficulty and distal femur was cut. It was then sized to a size 67.5, and the remainder of t he femoral cuts were performed without difficulty. Attention was then turned back to the tibia, wher e it was completely exposed. A standard tibial cut was then made, and it was then sized to a size 75 . A size 10 polyethylene trial was then used. It comes to full extension and appears to be well bal anced in both flexion and extension. Attention was then turned to the patella, which was then calipe red and cut. It was trialed and best fit was a 31. The trial patella was then placed. It glided id eally. After this, attention was turned back to the femur and the box was cut, followed by punching of the tibia. The wound was then copiously irrigated using jet lavage and cleaned and prepared for f inal cementation. After this, the final components were then cemented with the exception of the tibi al polyethylene, which the trial was used as a spacer while the cement hardened. Any unsupported yvette ent was removed. After this, the knee was brought through range of motion. Patella still appeared t o glide excellently. It was stable and appeared to be well balanced. The polyethylene was chosen be ing a size 10 poly. Final was then placed and locked in place using a locking bar. The knee was aga in irrigated. The extensor mechanism was sutured using Ethibond sutures. It was again irrigated and the skin was closed using Vicryl sutures, followed by stapling of the skin. She was then placed in a very well-padded sterile dressing, awakened, taken to recovery room in good condition. There were no complications. SE/MODL Voice ID: [id number] Report ID: [id number]
[2024-12-15] MEDS: CEFAZOLIN 1 GM in NA CHLORIDE 0.9% 50 ML IVPB SCH (17:55)
[2024-12-15] MEDS ORDERED: HOME MED 1 EA UNK (Losartan Potassium [Losartan Potassium] 100 MG Tablet) PO SCH (21:00)
[2024-12-15] MEDS: METHYLPHENIDATE HCL 10 MG PO SCH (21:00)
[2024-12-15] MEDS: MONTELUKAST 10 MG TAB PO SCH (21:18)
[2024-12-15] MEDS: PANTOPRAZOLE 40MG TABLET PO SCH (21:18)
[2024-12-15] MEDS: BUPROPION HCL XL 150 MG TAB PO SCH (21:18)
[2024-12-15] MEDS: TRAZODONE 50 MG TABLET PO SCH (21:18)
[2024-12-15] MEDS: METOPROLOL TAR 50 MG TAB PO SCH (21:18)
[2024-12-15] MEDS: LOSARTAN POTASSIUM 50 MG TABLET PO SCH (21:19)
--- NOTE | 2024-12-16 02:23 | P.CNS ---
Date of Consult: 12/15/24 Reason for Consult: Assistance with medical management Requesting Physician: Justo Laura Chief Complaint: patient presents for right total knee arthroplasty History of Present Illness: patient is a 74-year-old female who has history of arthritis with severe pain in the right knee. Her symptoms were progressively worsening and she was unable to ambulate. Patient decided to present to the hospital for right total knee a rthroplasty. Patient was taken to the OR this morning by Dr. Laura. Patient did well during the perioperative pd. Clinically, she is doing well postoperatively. I had a long discussion with her. She does complain also of being exposed to bedbugs. However, she has not had 1 while she has been in the hospital. She also states she has was to go to inpatient rehab. Will have to discuss this with inpatient rehab services as I have not been made aware of this. typically, patient get to go home after right total knee arthroplasty with pain control and anticoagulation with outpatient PT. Will discuss with Orthopedics and inpatient rehab services and see what kind of arrangements have been made. Otherwise, medically patient is doing well with no complaints. Will resume home medications and proceed with plan of care per Orthopedics. Allergies aspirin Allergy (Verified 12/09/24 09:18) tinnitus codeine Allergy (Verified 12/09/24 09:18) severe headache ibuprofen Allergy (Verified 12/09/24 09:18) tinnitus Iodinated Contrast Media [Iodinated Contrast Media - IV Dye] Allergy (Verified 12/09/24 09:18) blisters latex Allergy (Verified 12/09/24 09:18) Rash Penicillins Allergy (Verified 12/09/24 09:18) Itching/Hives/Rash gabapentin Adverse Reaction (Intermediate, Verified 12/09/24 09:18) delerium teramycin Allergy (Unknown, Uncoded 12/09/24 09:18) unknown Latex, Na Allergy (Uncoded 12/09/24 09:18) Unknown Home Medications: Bupropion *Xl* [Wellbutrin XL] 150 mg PO BEDTIME 12/09/24 Lemborexant [Dayvigo] 10 mg PO BEDTIME 12/09/24 Losartan Potassium 100 mg PO BEDTIME 12/09/24 Methylphenidate HCl 3 tab PO BEDTIME 12/09/24 Metoprolol Tartrate 50 mg PO BID 12/09/24 Mirabegron [Myrbetriq] 25 mg PO BEDTIME 12/09/24 Montelukast Sodium 10 mg PO BEDTIME 12/09/24 Pantoprazole Sodium 1 tab PO BEDTIME 12/09/24 Trazodone HCl 50 mg PO BEDTIME 12/09/24 estradioL [Estradiol] 42.5 gm VG SEECOM 12/09/24 hydroCHLOROthiazide [Hydrochlorothiazide] 12.5 mg PO DAILY 12/09/24 - Past Medical/Surgical History Diabetic: No -: narcolepsy -: hypertension -: GERD -: osteoarthritis -: left breast bx lump non cancerous -: carpal tunnel both wrist -: hemmoroidectomy -: liposuction -: cyst removed from back x 2 Psychosocial/ Personal History: Lives at home alone - Family History Sister Medical History: Cancer - Social History Smoking Status: Former smoker Alcohol use: No CD- Drugs: No Caffeine use: Yes Place of Residence: Home Review of Systems 10-point ROS is otherwise unremarkable Physical Examination Temp Pulse Resp BP Pulse Ox 97.4 F 78 18 140/68 96 12/15/24 20:00 12/15/24 21:18 12/15/24 20:00 12/15/24 21:18 12/15/24 20:00 General: Alert, In no apparent distress, Oriented x3 HEENT: Atraumatic, PERRLA, Mucous membr. moist/pink, EOMI, Sclerae nonicteric Neck: Supple, 2+ carotid pulse no bruit, No LAD, Without JVD or thyroid abnormality Respiratory: Clear to auscultation bilaterally, Normal air movement Cardiovascular: Regular rate/rhythm, Normal S1 S2 Gastrointestinal: Normal bowel sounds, No tenderness Musculoskeletal: Tenderness Integumentary: No rashes Neurological: Normal gait, Normal speech, Normal strength at 5/5 x4 extr, Normal tone, Sensation intact, Normal affect Lymphatics: No axilla or inguinal lymphadenopathy - Problems (1) Status post total right knee replacement Current Visit: Yes Status: Acute (2) HTN (hypertension) Current Visit: Yes Status: Acute (3) Depression Current Visit: Yes Status: Acute
[2024-12-16] MEDS: ENOXAPARIN 30 MG/0.3 ML SQ SCH (05:28)
[2024-12-16 06:19] LABS: Hematocrit 26.1 % (36.0-45.0); Hemoglobin 9.3 g/dL (12.0-15.0)
[2024-12-16] MEDS: NA CHLORIDE 0.9% 500 ML IV ONE (10:57)
[2024-12-16 11:28] VITALS: O2SAT 98
[2024-12-16 12:46] VITALS: BP 145/61; TEMP 98
== END 2024-12-16 14:58 ==
LOC: OR 05:34 → 4TH 09:16 → OR 12-16 14:58
PROVIDERS: ATTEND Orthopaedic Surgery
PROC: 0SRC0J9 Replacement of Right Knee Joint with Synthetic Substitute, Cemented, Open Approach (ICD-10-PCS; principal; 2024-12-15 07:00)
DX: M17.11 Unilateral primary osteoarthritis, right knee (principal); I10 Essential (primary) hypertension; F32.A Depression, unspecified; Z88.6 Allergy status to analgesic agent; Z88.5 Allergy status to narcotic agent; Z88.0 Allergy status to penicillin; Z88.8 Allergy status to other drugs, medicaments and biological substances
CPT/HCPCS: 85025; 81001; 36415 ×2; 85610; 88305; 88311; 85730; 85018; 85014; 80053; 71046; 97110 ×2; 97116 ×2; 97139; 97161; 97530 ×5; 94010 ×2; 27447; J3475; J2704; J2003 ×3; J1650; J2250; J3010 ×2; J1100 ×2; J0171; J1171; J2405; J7120; J7040; J0690 ×3

== ENCOUNTER 2024-12-16 13:49 | Inpatient (IN) | payer OTHER ==
[2024-12-16 14:57] VITALS: BMI 27.1
[2024-12-16] MEDS ORDERED: DOCUSATE NA 100 MG CAP PO PRN (15:28)
[2024-12-16 18:45] LABS: Specific Gravity 1.008 (1.005-1.030); Sqamous Epithelial <5 /HPF (None Seen); Urine Bacteria None Seen /HPF (<20); Urine Bilirubin NEGATIVE (Negative); Urine Blood Negative (Negative); Urine Clarity Turbid (Clear); Urine Color Colorless (Yellow); Urine Culture Reflex Order NOT NEEDED; Urine Glucose NEGATIVE (Negative); Urine Ketones NEGATIVE (Negative); Urine Micro Reflex YN NO BILL MICROSCOPIC; Urine Nitrite NEGATIVE (Negative); Urine Protein NEGATIVE (Negative); Urine RBC <5 /HPF (None Seen); Urine Urobilinogen Normal (Normal); Urine WBC <5 /HPF (<5); Urine WBC Clump Occasional /HPF (None Seen); Urine pH 5.5 (5.0-7.0)
[2024-12-16] MEDS: METOPROLOL TAR 50 MG TAB PO SCH (20:59)
[2024-12-16] MEDS: HYDROCODONE/APAP 7.5/325 MG TAB PO PRN (20:59)
[2024-12-16] MEDS: MONTELUKAST 10 MG TAB PO SCH (21:00)
[2024-12-16] MEDS: TRAZODONE 50 MG TABLET PO SCH (21:00)
[2024-12-16] MEDS: LOSARTAN POTASSIUM 50 MG TABLET PO SCH (21:02)
[2024-12-16] MEDS: BUPROPION HCL XL 150 MG TAB PO SCH (21:02)
[2024-12-16] MEDS: PANTOPRAZOLE 40MG TABLET PO SCH (21:02)
[2024-12-17 06:08] LABS: Absolute Eosinophils 0.1 K/uL (0-0.5); Absolute Lymphocytes (CBC) 1.5 K/uL (0.7-4.9); Absolute Monocytes 0.4 K/uL (0.1-1.3); Absolute Neutrophil 4.1 K/uL (1.8-8.0); Basophils % 0.5 % (0-1.3); Hematocrit 23.8 % (36.0-45.0); Hemoglobin 8.2 g/dL (12.0-15.0); Lymphocytes % 24.2 % (15.3-44.8); MCH 33.4 pg (27.0-35.0); MCHC 34.2 g/dL (32.0-36.0); MCV 97.6 fL (80-100); MPV 7.3 fL (7.6-11.3); Monocytes % 7.4 % (3.3-12.3); Neutrophils % 66.9 % (41.7-73.7); Platelets 181 thou/uL (152-406); RBC Red Blood Cell Count 2.44 M/uL (3.86-4.86)
[2024-12-17 06:28] LABS: Albumin 2.8 g/dL (3.4-5.0); Anion Gap 6.9 mEq/L (5.0-15.0); Magnesium 1.9 mg/dL (1.6-2.4); Potassium 3.9 mEq/L (3.5-5.1); Prealbumin 24.8 mg/dL (20-40)
[2024-12-17] MEDS ORDERED: PANTOPRAZOLE 40MG TABLET PO SCH (07:30)
[2024-12-17] MEDS ORDERED: BUPROPION HCL XL 150 MG TAB PO SCH (08:00)
[2024-12-17] MEDS ORDERED: LOSARTAN POTASSIUM 50 MG TABLET PO SCH (08:00)
[2024-12-17] MEDS: RIVAROXABAN 10 MG TABLET PO SCH (10:25)
--- NOTE | 2024-12-17 11:15 | HP ---
Date of Admission: 12/16/2024 Time Of Service: 9 a.m. Chief Complaint: "I replaced my right knee and I have a lot of pain." History Of Present Illness: Ms. Dailey is a 74-year-old patient with history of hypertension, gas troesophageal reflux disease, carpal tunnel syndrome of both wrists, peripheral neuropathy, she had a breast lump noncancerous, lives alone at home and has had some worsening knee pain that is refractor y to conservative treatment. She was electively admitted on 12/15/2024 for right knee arthroplasty. Following surgery, she had complication of respiratory depression requiring up to 10 L of oxygen in the PACU and eventually was able to be weaned down to 2 L of oxygen and put on the acute floor. She did go all way off oxygen and still managed to do okay. Hemoglobin was down to 9.3, hematocrit 26.1 following surgery. She noted she did not have a bowel movement and is still waiting to have a good b owel movement since her surgery. She does have protocol for stool softener and laxative and if need be, suppository to be given. She does have Lovenox for DVT prophylaxis. She did have significantly uncontrolled high blood pressure with systolic up to 178. She was prior to surgery independent, alth ough still had some limitations because of the right knee and she did have however frequent falls bec ause of the knee giving out. She had a fall in October, where she had a pelvic fracture, the left s uperior and inferior pubic rami, she at that point though was able to do well, was able to cook, aline n, and take care of her activities of daily living and drive herself. She was evaluated by Therapy a nd found to be mildly confused. She did require minimum to contact guard assistance with speech, con tact guard assistance with ambulation with a front wheel walker, and she was of course noted to be we ll below her baseline level of functioning. She is now admitted to the inpatient rehabilitation unit for physical, occupational, and speech therapy to help her return to her prior level of functioning and to reduce her risk of rehospitalization. Past Medical History: Peripheral neuropathy, narcolepsy which has resulted in multiple falls, she se es Dr. Lui for that. She also has frequent urination at night, she sees Dr. Sudhakar Cerda for that. She has hypertension, gastroesophageal reflux disease, osteoarthritis, carpal tunnel syndrome on both wrists. She has a left breast lump biopsy that is noncancerous. She has had hemorrhoidectom y, liposuction, cyst removal from the back, and she has had gynecological procedure by Dr. Chaves. Allergies: ASPIRIN, CODEINE, IBUPROFEN, PENICILLIN, GABAPENTIN, TETRAMYCIN, AND LASIX. Current Medications: Bupropion 150 mg at bedtime, Colace 100 mg daily, Wilson 7.5/325 every 4 hours a s needed, Cozaar 100 mg at bedtime, Lopressor 50 mg twice daily, Singulair 10 mg daily, Protonix 40 m g at bedtime, Xarelto 10 mg daily, Desyrel 50 mg at bedtime. Laboratory Studies: White blood cell count 6.1, hemoglobin 8.2, platelets are 181. Sodium 139, pota ssium 3.9, chloride 111, carbon dioxide 25, BUN 28, creatinine 1, glucose 131, calcium 8.2, magnesium 1.9, albumin 2.8, prealbumin 24.8. Urinalysis, turbid clarity, occasional clumps of white blood ben ls, otherwise unremarkable. X-ray/imaging: A chest x-ray done on December 09, 2024, shows no evidence of acute cardiopulmonary pr ocess. A hip MRI done on 10/19/2024 shows subacute nondisplaced fracture of the left superior and in ferior pubic rami. Family History: Noncontributory. Review of Systems: She does report moderate pain in the right knee, when addressed around 2 to 3, but when moving around 6 or 7. She says she has been "knock kneed all her life" and is having some issues trying to get he r knee rotated properly. Otherwise, some mild myalgias, arthralgias. No rash. No headache. She do es have again just narcolepsy with episodes of falling and was treated by Dr. Lui, but otherwise on review of systems, no positive findings. Current Level Of Functioning: Currently, for eating setup assistance as well as for grooming. Bathi ng moderate assistance, upper body dressing supervision, lower body dressing moderate assistance, cherise leting moderate assistance, wheelchair transfer moderate assistance. For her ambulation, she did amb ulate moderate assistance covering 48 feet. Physical Examination: Vital Signs: Blood pressure is 117/58, pulse 61, respiratory rate 20, temperature 97.2, oxygen satur ation 95%. General: Ms. Dailey is resting comfortably in bed. She does report some pain around 2 to 3. HEENT: She is normocephalic, atraumatic. Sclerae anicteric. Oropharynx pink and moist. Neck: Supple. Chest: Clear. Heart: Regular. Neuro: The right knee has good hemostasis with bandage across the knee from the thigh to the anterio r leg. Some mild edema postoperatively in the right lower extremity. She has good movement of both legs and both feet. Otherwise, she has no focal neurological deficits. Rehab And Medical Assessment And Plan: Ms. Dailey is a 74-year-old patient, admitted to the [facility] rehabilitation unit with impairment category 08, replacement of lower extremity joint. [facility], unilateral knee replacement. Etiologic diagnosis, right total knee arthr oplasty. She does have comorbidities including depression treated with Wellbutrin, Wilson for pain. She has anemia, Hemocyte Plus to be added. She does have Xarelto 10 mg daily to reduce risk of clots . She has Desyrel for insomnia, Singulair for allergies, Lopressor for heart rate control along with losartan, Colace for stool softening and she does have constipation. It is noted that she is at risk for worsening giving the history of the need for high flow oxygen. R isk of aspiration pneumonia is possibly present. 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 The patient is on c ontact isolation for the reported bedbug infestation. Comorbidities That Are Impacting Rehabilitation: Given the reported history of bed bugs, the patient is put on contact isolation. She also will again continue with DVT prophylaxis to reduce risk of cl ots in the right knee and thigh area along with the calf. Also, she does have episodes of uncontroll ed hypertension, currently controlled. She again needed oxygen earlier and she has moderate anemia. Those will be addressed and corrected as appropriate. Rehab Specific Plan: Ms. Dailey will have physical, occupational, and speech therapy for 3.5 hour s, 5 of 7 days, to improve her capacity to safely transfer from bed to chair, to wheelchair, to toile t, and in and out of the shower. She will work with therapy to dress upper and lower body, donning a nd doffing footwear, and use assistive devices to facilitate this. She will mobilize with a rolling walker more than household distances, will attempt with going up and down steps as well. Also with genny dumas for safety awareness, she will work with them and also to reduce the risk of possible aspiratio n pneumonia, she will have incentive spirometry as she worked with speech therapy. Ms. Dailey has a good understanding of the process of admission to the inpatient rehabilitation un it and how she will benefit from physical, occupational, and speech therapy. She will have 24 hours a day, 7 days a week, skilled rehabilitation and nursing, daily physician evaluation and management, social service evaluation and management for discharge planning, home equipment, and physician follow up along with continuing therapy. If need be, additional help from the Hospitalist Service will be s ought. Prior to discharge, Ms. Dailey complained to us to have the reported bedbug infestation. No obvio us signs of that at this point. In addition, she lives alone and would require her getting to a chasity fied independence level to be able to go home safely. We will work with her ambulating many times mo re than household distances and work on her endurance, balance, coordination, and help reduce risk of fall and injury to the knee or anywhere else. She may have to go to skilled depending on how well s he does. Length Of Stay: About 10 days. Disposition: Home with home health to continue therapy and family to look in on her. Prognosis: Good. Code Status: Full code. Rehab Specific Goals: 1. Become independent with upper and lower body dressing, donning and doffing footwear. 2. Independently mobilize a wheelchair 250 feet. 3. Independently mobilize a rolling walker 250 feet. 4. Independently go up and down 10 steps with bilateral handrails. 5. Independently perform all activities of daily living. 6. Independently perform cognitive functioning with safety awareness. The above goals were reviewed with Ms. Dailey. She is in agreement. By signing this document, I acknowledge I personally performed a full physical examination on Ms. Zaynab peguero no later than 24 hours after her admission to the inpatient rehabilitation unit and determined that she is able to tolerate the above course of treatment at an intensive level for a reasonable pe riod of time. A detailed individualized plan of care for her will be completed by hospital day 4 bas ed on the preadmission screen, history and physical, and therapy evaluations. YESI Voice ID: [id number]
[2024-12-17] MEDS: MYRBETRIQ 25 MG PO SCH (19:32)
[2024-12-17] MEDS: [UNRECOGNIZED DRUG - OTHER] PO SCH (19:32)
--- NOTE | 2024-12-18 13:30 | P.RH.PN ---
Estimated Length of Stay: 9 Expected Discharge Date: 12/24/24 Discharge Disposition Plan: Home Halfway Goal: Mobility, Transfers, Self Care Vital Signs: Last Vital Signs Temp 97.9 F 12/18/24 07:16 Pulse 63 12/18/24 07:58 Resp 17 12/18/24 07:16 BP 139/58 L 12/18/24 07:58 Pulse Ox 95 12/18/24 07:16 Laboratory: Laboratory Last Values WBC 6.10 thou/uL (4.3-10.9) 12/17/24 05:34 RBC 2.44 M/uL (3.86-4.86) L 12/17/24 05:34 Hgb 8.2 g/dL (12.0-15.0) L D 12/17/24 05:34 Hct 23.8 % (36.0-45.0) L 12/17/24 05:34 MCV 97.6 fL (80-100) 12/17/24 05:34 MCH 33.4 pg (27.0-35.0) 12/17/24 05:34 MCHC 34.2 g/dL (32.0-36.0) 12/17/24 05:34 RDW 13.0 % (12.1-15.2) 12/17/24 05:34 Plt Count 181 thou/uL (152-406) 12/17/24 05:34 MPV 7.3 fL (7.6-11.3) L 12/17/24 05:34 Neutrophils % 66.9 % (41.7-73.7) 12/17/24 05:34 Lymphocytes % 24.2 % (15.3-44.8) 12/17/24 05:34 Monocytes % 7.4 % (3.3-12.3) 12/17/24 05:34 Eosinophils % 1.0 % (0-4.4) 12/17/24 05:34 Basophils % 0.5 % (0-1.3) 12/17/24 05:34 Absolute Neutrophils 4.1 K/uL (1.8-8.0) 12/17/24 05:34 Absolute Lymphocytes 1.5 K/uL (0.7-4.9) 12/17/24 05:34 Absolute Monocytes 0.4 K/uL (0.1-1.3) 12/17/24 05:34 Absolute Eosinophils 0.1 K/uL (0-0.5) 12/17/24 05:34 Absolute Basophils 0.0 K/uL (0-0.5) 12/17/24 05:34 Sodium 139 mEq/L (136-145) 12/17/24 05:34 Potassium 3.9 mEq/L (3.5-5.1) 12/17/24 05:34 Chloride 110 mEq/L (98-107) H 12/17/24 05:34 Carbon Dioxide 26 mEq/L (21-32) 12/17/24 05:34 Anion Gap 6.9 mEq/L (5.0-15.0) 12/17/24 05:34 BUN 28 mg/dL (7-18) H 12/17/24 05:34 Creatinine 1.00 mg/dL (0.55-1.02) 12/17/24 05:34 Est GFR (CKD-EPI) 58 ml/min (=/>90) L 12/17/24 05:34 Glucose 131 mg/dL (74-106) H 12/17/24 05:34 Calcium 8.2 mg/dL (8.5-10.1) L 12/17/24 05:34 Magnesium 1.9 mg/dL (1.6-2.4) 12/17/24 05:34 Albumin 2.8 g/dL (3.4-5.0) L 12/17/24 05:34 Prealbumin 24.8 mg/dL (20-40) 12/17/24 05:34 Urine Color Colorless (Yellow) 12/16/24 15:33 Urine Clarity Turbid (Clear) H 12/16/24 15:33 Urine pH 5.5 (5.0-7.0) 12/16/24 15:33 Ur Specific [place] 1.008 (1.005-1.030) 12/16/24 15:33 Glucose (UA)(Auto) Negative (Negative) 12/16/24 15:33 Urine Ketones Negative (Negative) 12/16/24 15:33 Urine Blood Negative (Negative) 12/16/24 15:33 Urine Nitrite Negative (Negative) 12/16/24 15:33 Urine Bilirubin Negative (Negative) 12/16/24 15:33 Urine Urobilinogen Normal (Normal) 12/16/24 15:33 Ur Leukocyte Esterase Negative Honey/uL (Negative) 12/16/24 15:33 Urine RBC <5 /HPF (None Seen) 12/16/24 15:33 Urine WBC <5 /HPF (<5) 12/16/24 15:33 Urine WBC Clumps Occasional /HPF (None Seen) H 12/16/24 15:33 Ur Squamous Epith Cells <5 /HPF (None Seen) 12/16/24 15:33 Urine Bacteria None seen /HPF (<20) 12/16/24 15:33 Urine Culture Reflexed Not needed 12/16/24 15:33 Urine Total Protein Negative (Negative) 12/16/24 15:33 Weight: 163 lb Closed Surgical Incision Present: Yes Negative Pressure Wound Therapy Present: No Physician Update: Labs reviewed, mild anemia with slight dehydration. BIMS 15. Pain is 8/10 in right knee. Will add gabapentin 100 mg twice daily and give [place] 1 hour before therapy sessions. Bed mobility CGA, 60' with CGA, WC 150', CGA lower body dressing. Summary: Patient's care plan and residential goals have been reviewed and revised as necessary. Please see the Rehabilitation Signature page for all necessary signatures.
[2024-12-18] MEDS: ESTRADIOL VAG SCH (17:00)
[2024-12-18] MEDS: TRAMADOL HCL 50 MG TAB PO PRN (17:11)
[2024-12-18] MEDS ORDERED: GABAPENTIN 100 MG CAP PO SCH (20:00)
[2024-12-18] MEDS: DULOXETINE 20 MG CAP PO SCH (20:07)
[2024-12-18] MEDS: HYDROCODONE/APAP 10/325 TAB PO PRN (20:08)
[2024-12-18] MEDS: METHYLPHENIDATE HCL PO SCH (21:00)
[2024-12-18] MEDS: BISACODYL 10 MG RECTAL SUPP PR ONE (22:53)
[2024-12-19] MEDS: LIDOCAINE 4% PATCH TOP SCH (06:38)
[2024-12-19] MEDS: [UNRECOGNIZED DRUG - OTHER] PO SCH (19:19)
[2024-12-20] MEDS: HYDROCORTISONE 1 % CREAM 30GM TOP PRN (11:08)
--- NOTE | 2024-12-21 23:33 | PN ---
Date of Progress Note: 12/21/2024 Time Of Service: 1 p.m. Subjective: Ms. Lomax is resting in bed. She is in between therapy sessions. She said that the pain in the right knee which had a total knee replacement has been moderately improved. However, the magda n on the left knee, which she is now using more because of the right knee recent surgery has increase d moderately. She will have a lidocaine patch placed on that knee. Otherwise, she has some mild dep ression, likely related to her face of recovery, which is not as ideal as she was lying. She is on d uloxetine 20 mg daily, which will help with neuropathic pain and mood. She is also on Wellbutrin for depression. Objective: Again, some mild pain in the left and right knee. Otherwise, no other positives on her s ystems review. Physical Examination: Vital Signs: Blood pressure 136/61, pulse 58, respiratory rate 18, temperature 98.5, oxygen saturati on 95%. General: Ms. Dailey is lying in bed. She is in no significant distress. HEENT: She is normocephalic, atraumatic. Sclerae anicteric. Oropharynx pink, moist. Neck: Supple. Chest: Clear. Extremities: No significant edema in the lower extremities. Laboratory Studies: No new laboratory studies. X-ray/imaging: No new x-rays or imaging. Medications: Medications have been reviewed and are unchanged. Progress Made With Physical And Occupational Therapy: With physical therapy today, she did bed mobil ity with supervision to contact guard assistance and did multiple byl-gl-wwrzo transfers with contact guard assistance. She ambulated 150 feet with a rolling walker with contact guard assistance and mo bilized a wheelchair 100 feet. With occupational therapy, zrw-zr-[id number] transfers and ambulation with in the room to the toilet done with a rolling walker, done with supervision. She did do very well. Assessment: Ms. Dailey is a 74-year-old patient in the rehabilitation unit with right total knee arthroplasty. She has still decreased mobility, decreased physical functioning, some mild left-sided knee pain, which she is bearing more weight on the left side. She has depression. She has beta-blo cker and Lopressor for heart rate control. She has Colace for stool softening and again to Wellbutri n and duloxetine for depression. Plan: Continue with physical and occupational therapy, 3 hours a day, 5 of 7 days. She will continu e with current regimen of medications. Her pain is addressed by multiple modalities as noted. Comorbidities Impacting Rehabilitation: At this point, Ms. Lomax is managing the pain and multiple mo dalities used. She has [place] 10/325. She has Wellbutrin, duloxetine, and tramadol. LB/MODL Voice ID: [id number] Report ID: [id number]
--- NOTE | 2024-12-22 12:42 | EKG ---
Test Date: 2024-12-21 Test Time: 20:21:45 Personal Financial Advisor: ROCHELLE MEASUREMENT RESULTS: Intervals: Rate: 51 TX: 192 QRSD: 90 QT: 472 QTc: 435 [place]: P: 45 TX: 192 QRS: -9 T: 41 INTERPRETIVE STATEMENTS: Sinus bradycardia Otherwise normal ECG Compared to ECG 11/21/2024 20:06:04 Sinus rhythm no longer present Sinus arrhythmia no longer present Prolonged QT interval no longer present Electronically Signed On 12-22-24 12:40:33 THERAPIST OCCUPATIONAL by Edward De Luna
--- NOTE | 2024-12-22 20:49 | PN ---
Date of Progress Note: 12/22/2024 Time Of Service: 1 p.m. Subjective: Ms. Dailey is resting comfortably in bed, about to get a nap before her next therapy session. She says the pain in the left knee, which was bothering her yesterday, not as much today an d where she has a right total knee arthroplasty that also has improved in terms of pain. She did par ticipate well with therapy. Objective: No fevers, chills, nausea, vomiting. Mild myalgias, arthralgias. No rash. No psychiatr ic complaints. Physical Examination: Vital Signs: Blood pressure 154/62, pulse 66, respiratory rate 16, temperature 98.8, oxygen saturati on 96%. General: Ms. Dailey is lying comfortably in bed. HEENT: She is normocephalic, atraumatic. Sclerae anicteric. Extremities: Right knee surgical site has good hemostasis. Neuro: She has no focal neurological deficits. Laboratory Studies: No new laboratory studies. X-ray/imaging: No new x-rays or imaging. Medications: Medications have been reviewed and remain unchanged. Note, she did have an electrocard iogram done yesterday after she had some left breast area pain. She had a mastectomy there. Study s howed sinus bradycardia, otherwise normal ECG. Progress Made With Physical And Occupational Therapy: Today with physical therapy, she completed bed mobility with supervision. Multiple boz-cd-raets transfers and lmmsl-mm-rrvmq transfers with contac t guard assistance and supervision. She did ambulate 250 feet with a rolling walker with contact gua rd assistance and another 250 feet with a complaint in the morning session with her therapy. Mobiliz ed a wheelchair 250 feet with supervision. With occupational therapy, supervision for ulzqpe-nc-xyt transfers with and without the left leg lift er and verbal cues and toileting completed and upper and lower body dressing with minimum assistance. Maximal assistance for safety awareness due to lack of safety awareness and impulsive behavior. Assessment: Ms. Dailey is a 74-year-old patient in the rehabilitation unit with right knee arthro plasty. She has decreased mobility, decreased physical functioning in addition to mild depression, o n bupropion and Cymbalta. She has DVT prophylaxis on board, Xarelto 10 mg daily, tramadol for pain, trazodone for insomnia. She has Lopressor and Cozaar for blood pressure control and Colace for stool softening. Plan: She will continue with physical and occupational therapy, 3 hours a day, 5 of 7 days. Her com orbid conditions are managed by continuing her list of medications as noted. Comorbidities Impacting Rehabilitation: She is doing better in terms of her pain management in both knees. The left knee has bypt-iu-ewgc and has not been replaced, the right has, and she again is abl e to manage with multiple pain modalities and is doing well. BINH/CHRISTOPHER Voice ID: [id number] Report ID: [id number]
[2024-12-23 05:49] LABS: Absolute Eosinophils 0.1 K/uL (0-0.5); Absolute Lymphocytes (CBC) 0.8 K/uL (0.7-4.9); Absolute Monocytes 0.5 K/uL (0.1-1.3); Absolute Neutrophil 2.8 K/uL (1.8-8.0); Basophils % 1.1 % (0-1.3); Eosinophils % 2.7 % (0-4.4); Hemoglobin 8.4 g/dL (12.0-15.0); Lymphocytes % 19.4 % (15.3-44.8); MCH 33.6 pg (27.0-35.0); MCHC 35.1 g/dL (32.0-36.0); MCV 95.8 fL (80-100); MPV 6.8 fL (7.6-11.3); Monocytes % 11.4 % (3.3-12.3); Neutrophils % 65.4 % (41.7-73.7); Nucleated Red Blood Cells % 0.1 % (0-0); Platelets 314 thou/uL (152-406); RBC Red Blood Cell Count 2.51 M/uL (3.86-4.86); Red Cell Distribution Width 12.8 % (12.1-15.2)
[2024-12-23 06:09] LABS: Albumin 2.6 g/dL (3.4-5.0); Magnesium 2.2 mg/dL (1.6-2.4); Prealbumin 18.1 mg/dL (20-40)
--- NOTE | 2024-12-23 22:55 | PN ---
Subjective: Today, Ms. Dailey is feeling better about the pain in the right knee, where she had t otal knee arthroplasty, also on the left knee. She is lying in bed and more happy today, smiling, an d glad that she will be soon able to go home and be at her own bed. Objective: She denies any fevers, chills, nausea, vomiting. No significant myalgias, arthralgias, r steve, headache, or weight change. Physical Examination: Vital Signs: Blood pressure 155/71, pulse of 63, respiratory rate 17, temperature 98.7, oxygen satur ation 95%. General: Again, Ms. Dailey is resting comfortably. She is in no acute distress. HEENT: Normocephalic, atraumatic. Sclerae anicteric. Oropharynx pink, moist. Neck: Supple. Extremities: Right total knee arthroplasty area has good hemostasis. No unexpected findings. Laboratory Studies: Her white blood cell count 4.3, hemoglobin 8.4, platelets 314. Sodium 136, pota ssium 4.0, chloride 105, carbon dioxide 28, BUN 18, creatinine 0.8, glucose 107, calcium 8.6, magnesi um 2.2, albumin 2.6, prealbumin 18.1, triglycerides 129, cholesterol total 142, LDL cholesterol 70, H DL cholesterol 46, cholesterol-HDL ratio 3.09. X-ray/imaging: No new x-rays or imaging. Medications: Medications have been reviewed and remain unchanged. Progress Made With Physical And Occupational Therapy: With physical therapy today, she did ambulate 250 feet with rolling walker with standby assistance. Mobilized a wheelchair 250 feet with modified independence, up and down 15 steps with minimal assistance. With occupational therapy, performed cherise let transfers and bed transfers independently, independent toileting as well. She was somewhat impul sive in therapy as noted. Assessment: Ms. Dailey is a 74-year-old patient in the rehabilitation unit with right total knee arthroplasty. She still has decreased mobility, decreased physical functioning, which is improving. She has depression along with hypertension and constipation. She is on anticoagulation meterman. Plan: 1. She will continue with physical and occupational therapy, 3 hours a day, 5 of 7 days. 2. Continue with comorbid condition medications which have listed. Conditions That Are Impairing Or Affecting Her Rehabilitation: She is actually doing very well and h er comorbid conditions do not negatively impact her rehabilitation. LB/MODL Voice ID: [id number] Report ID: [id number]
[2024-12-24 20:18] VITALS: TEMP 98.2
--- NOTE | 2024-12-25 01:01 | PN ---
Date of Progress Note: 12/24/2024 Time Of Service: 1 p.m. Subjective: Ms. Dailey is resting in bed. She said today was a little bit rougher, but she did a ll of the therapy what the therapist requested. The right total knee arthroplasty pain is moderate, the left side also is well, but she is still doing the therapy. Objective: No significant fevers, chills, nausea, vomiting, myalgias, arthralgias, rash. She also h as no other complaints. Physical Examination: Vital Signs: Blood pressure 146/66, pulse 61, respiratory rate 16, temperature 98.0, oxygen saturati on 95%. General: Ms. Dailey is lying in bed. She is in no significant distress. HEENT: She is normocephalic, atraumatic. Sclerae anicteric. Oropharynx pink and moist. Neck: Supple. Chest: Clear. Heart: Regular. Extremities : No significant cyanosis, clubbing, or edema noted. Laboratory Studies: No new laboratory studies since yesterday. X-ray/imaging: No new x-rays or imaging. Medications: Medications have been reviewed and remained unchanged. Progress Made With Physical And Occupational Therapy: With physical therapy today, she did ambulate 400 feet with a rolling walker with supervision. Up and down 15 steps with contact guard assistance. She mobilized wheelchair 250 feet and 100 feet with modified independence. Supine to sit done with modified independence. Simulated car transfer done with supervision. Regarding occupational therap y, bed mobility, bed to rolling walker transfer done with independence. [place] with toileting. Sink side oral hygiene, tub, shower, upper body/lower body dressing done with modified independence . Assessment: Ms. Dailey is a 74-year-old patient who is doing very well with her physical and occu pational therapy, and pain is better managed. She is getting towards modified independence with her activities. She still has mild decreased mobility, decreased physical functioning, mild depression, hypertension, and pain. Plan: Continue with physical and occupational therapy 3 hours a day, 5 of 7 days. Continue with cur rent list of medications. She is doing well enough. At discharge, likely she will be best suited [facility] outpatient physical therapy. Follow up with Orthopedic Surgery and primary care physician. BINH/CHRISTOPHER Voice ID: [id number] Report ID: [id number]
[2024-12-25 07:27] VITALS: BP 151/62
== END 2024-12-25 13:40 | disposition home health service (06) | DRG 561 ==
LOC: 5TH 14:30
PROVIDERS: ADMIT Psychiatry & Neurology Neurology with Special Qualifications in Child Neurology; ATTEND Psychiatry & Neurology Neurology with Special Qualifications in Child Neurology
DX: Z47.1 Aftercare following joint replacement surgery (principal); I10 Essential (primary) hypertension; K59.00 Constipation, unspecified; K21.9 Gastro-esophageal reflux disease without esophagitis; M19.90 Unspecified osteoarthritis, unspecified site; G56.03 Carpal tunnel syndrome, bilateral upper limbs; G62.9 Polyneuropathy, unspecified; G47.419 Narcolepsy without cataplexy; F32.A Depression, unspecified; G47.00 Insomnia, unspecified
CPT/HCPCS: 36415; 80048; 80061; 81001; 82040; 83735; 84134; 85025; 87086; 87088; 92523; 93005; 97110; 97116; 97161; 97165; 97530; 97542; J2003